=== PATIENT | male | born 1960 | race Caucasian/White ===

== ENCOUNTER → 2022-08-27 | Outpatient (CLI) | payer BC ==
[~2022-08-27] MED LIST: PRIL20TA2 PO; TYLE325T5 PO
== END ==
LOC: M LABSMTC 09:21
PROVIDERS: ATTEND Anesthesiology
DX: Z20.828 Contact with and (suspected) exposure to other viral communicable diseases (principal); Z11.59 Encounter for screening for other viral diseases

== ENCOUNTER 2022-08-30 06:44 | Day surgery (SDC) | payer BC ==
[~2022-08-30] VITALS: Ht 180.3 cm; Wt 57.2 kg
[~2022-08-30 06:44] MED LIST changes: +NS 1,000 ML IV ONE
[2022-08-30] MEDS ORDERED: propofoL 200 MG/20 ML VIAL As Ordered ONE (07:27)
[2022-08-30] MEDS ORDERED: LIDOCAINE 2% 100MG/5ML SDV (FOR ANES.) As Ordered ONE (07:27)
[2022-08-30] MEDS ORDERED: fentaNYL 100 MCG/2 ML INJECTION As Ordered ONE (07:28)
[2022-08-30] MEDS ORDERED: ePHEDrine SULFATE 25 MG/5 ML(5MG/ML) SYRINGE As Ordered ONE (08:22)
[2022-08-30 09:08] VITALS: BP 100/57
== END 2022-08-30 09:12 | disposition home or self-care (01) ==
LOC: M OPP 06:44
PROVIDERS: ATTEND Internal Medicine Gastroenterology
DX: Z12.11 Encounter for screening for malignant neoplasm of colon (principal); K64.0 First degree hemorrhoids; K21.00 Gastro-esophageal reflux disease with esophagitis, without bleeding; J44.9 Chronic obstructive pulmonary disease, unspecified; F17.200 Nicotine dependence, unspecified, uncomplicated; Z86.79 Personal history of other diseases of the circulatory system; Z79.899 Other long term (current) drug therapy
CPT/HCPCS: 43239; 45378; 88305; J3010

== ENCOUNTER 2023-04-17 21:59 | Inpatient (IN) | payer BC ==
[~2023-04-17] VITALS: Ht 180.3 cm; Wt 56.8 kg
[~2023-04-17 21:59] MED LIST changes: -NS 1,000 ML IV ONE
[2023-04-17 23:01] LABS: HEMOGLOBIN 15.9 g/dl (13.5-17.5); MEAN CORPUSCULAR HEMOGLOBIN 32.5 pg (27.0-33.0); MEAN CORPUSCULAR HGB CONC 33.8 g/dl (32.0-36.5); MEAN CORPUSCULAR VOLUME 96.1 fl (80.0-96.0); PLATELET COUNT, AUTOMATED 423 10^3/uL (150-450); RED BLOOD COUNT 4.89 10^6/uL (4.30-6.10); WHITE BLOOD COUNT 13.3 10^3/uL (4.0-10.0)
[2023-04-17 23:25] LABS: ALBUMIN 4.4 G/DL (3.2-5.2); ALKALINE PHOSPHATASE 103 U/L (46-116); ALT/SGPT 23 U/L (7.0-40); AST/SGOT 39 U/L (<34); BILIRUBIN,DIRECT 0.2 MG/DL (<0.4); BILIRUBIN,TOTAL 0.7 MG/DL (0.3-1.2); BLOOD UREA NITROGEN 19 MG/DL (9-23); CALCIUM LEVEL 9.6 MG/DL (8.3-10.6); CARBON DIOXIDE LEVEL 27 MMOL/L (20-31); CHLORIDE LEVEL 104 MMOL/L (98-107); CREATININE FOR GFR 0.65 MG/DL (0.70-1.30); GLOMERULAR FILTRATION RATE > 60.0 (>49); GLUCOSE, FASTING 111 MG/DL (74-106); LIPASE 36 U/L (12-53); POTASSIUM SERUM 4.9 MMOL/L (3.5-5.1); SODIUM LEVEL 139 MMOL/L (136-145); TOTAL PROTEIN 7.3 G/DL (5.7-8.2)
[2023-04-17] MEDS ORDERED: ONDANSETRON 4MG 2ML VIAL IV ONE (23:25)
[2023-04-17 23:31] LABS: ATYPICAL LYMPH 1 % (0-5); EOSINOPHILS 1 % (0-3); LYMPHOCYTES 13 % (16-44); MONOCYTES 4 % (0-5); NEUTROPHILS 81 % (28-66); PLATELET ESTIMATE INCREASED (NORMAL)
[2023-04-17] MEDS ORDERED: ISOVUE-370 76% 100ML VIAL As Ordered ONE (23:31)
[2023-04-17] MEDS: MORPHINE 4 MG/ML 1ML VIAL IV PRN (23:57)
[2023-04-18] MEDS: GASTROGRAFIN SOLUTION 30ML PO SCH ×2 (00:08→00:29)
[2023-04-18] MEDS: MORPHINE 4 MG/ML 1ML VIAL IV PRN ×3 (00:28→20:34)
[2023-04-18] MEDS ORDERED: ONDANSETRON 4MG 2ML VIAL IV PRN ×2 (04:30→16:30)
[2023-04-18] MEDS ORDERED: CYCL5TAB PO (04:37)
[2023-04-18] MEDS ORDERED: FLON1SPR (04:37)
[2023-04-18] MEDS ORDERED: NAPR500T6 PO (04:37)
[2023-04-18] MEDS ORDERED: FLUTICASONE PROP 0.05% NASAL SPRAY 16 GM (FLONASE) PRN (04:40)
[2023-04-18] MEDS ORDERED: HOME MED LIST COMPLETE! XX SCH (04:40)
[2023-04-18] MEDS ORDERED: IPRATROPIUM 0.5MG/ALBUTEROL 2.5MG INH SOL UD 3ML (DUONEB) NEB PRN (04:50)
[2023-04-18 05:31] LABS: BASO # 0.1 10^3/uL (0.0-0.2); BASO % 0.4 % (0.0-1.0); EOS % 0.1 % (0.0-3.0); HEMATOCRIT 45.9 % (42.0-52.0); HEMOGLOBIN 15.4 g/dl (13.5-17.5); LYMPH # 1.4 10^3/uL (1.5-5.0); LYMPH % 10.2 % (24.0-44.0); MEAN CORPUSCULAR HEMOGLOBIN 32.6 pg (27.0-33.0); MEAN CORPUSCULAR HGB CONC 33.6 g/dl (32.0-36.5); MONO # 0.7 10^3/uL (0.0-0.8); MONO % 5.5 % (2.0-8.0); NEUTROPHILS # 11.2 10^3/uL (1.5-8.5); NEUTROPHILS % 83.6 % (36.0-66.0); PLATELET COUNT, AUTOMATED 425 10^3/uL (150-450); RED BLOOD COUNT 4.73 10^6/uL (4.30-6.10); WHITE BLOOD COUNT 13.4 10^3/uL (4.0-10.0)
[2023-04-18 06:04] LABS: ALBUMIN 4.4 G/DL (3.2-5.2); ALKALINE PHOSPHATASE 113 U/L (46-116); ALT/SGPT 22 U/L (7.0-40); AST/SGOT 19 U/L (<34); BILIRUBIN,TOTAL 0.8 MG/DL (0.3-1.2); BLOOD UREA NITROGEN 17 MG/DL (9-23); CALCIUM LEVEL 9.7 MG/DL (8.3-10.6); CARBON DIOXIDE LEVEL 28 MMOL/L (20-31); CHLORIDE LEVEL 104 MMOL/L (98-107); CREATININE FOR GFR 0.63 MG/DL (0.70-1.30); GLOMERULAR FILTRATION RATE > 60.0 (>49); GLUCOSE, FASTING 122 MG/DL (74-106); POTASSIUM SERUM 4.1 MMOL/L (3.5-5.1); SODIUM LEVEL 140 MMOL/L (136-145); TOTAL PROTEIN 7.3 G/DL (5.7-8.2)
[2023-04-18 06:11] LABS: PROCALCITONIN <0.04 ng/ml
[2023-04-18] MEDS: PANTOPRAZOLE 40MG VIAL IV SCH (06:12)
[2023-04-18] MEDS: cefTRIAXone SOD 1 GM in D5W MINI-BAG PLUS 50 ML IV SCH (06:12)
[2023-04-18] MEDS: MORPHINE 2 MG/ML 1ML VIAL IV PRN ×3 (06:13→13:36)
[2023-04-18] MEDS: D5W/0.9% SODIUM CHLORIDE 1,000 ML IV SCH ×2 (06:18→15:48)
[2023-04-18] MEDS: DOXYCYCLINE HYCLATE 100 MG in D5W MINI-BAG PLUS 100 ML IV SCH ×2 (06:22→18:48)
[2023-04-18] MEDS ORDERED: MORPHINE 2 MG/ML 1ML VIAL IV PRN (10:40)
[2023-04-18] MEDS ORDERED: MORPHINE 4 MG/ML 1ML VIAL IV PRN (10:46)
[2023-04-18] MEDS ORDERED: MORPHINE 2 MG/ML 1ML VIAL IV ONE (12:00)
[2023-04-18 14:00] VITALS: BP 130/73; TEMP 97.7; O2SAT 97
[2023-04-18 14:48] VITALS: O2SAT 94
[2023-04-18] MEDS: LIDOCAINE 5% (LIDODERM) PATCH TD PRN (15:49)
[2023-04-18] MEDS: ONDANSETRON 4MG 2ML VIAL IV PRN (15:51)
[2023-04-18 20:00] VITALS: O2SAT 94
[2023-04-18 21:39] VITALS: BP 116/66; TEMP 97.9; O2SAT 94
[2023-04-18] MEDS ORDERED: KETOROLAC 30 MG/ML 1ML VIAL IV ONE (21:40)
[2023-04-19] MEDS: D5W/0.9% SODIUM CHLORIDE 1,000 ML IV SCH ×2 (02:20→15:40)
[2023-04-19] MEDS: MORPHINE 4 MG/ML 1ML VIAL IV PRN ×5 (02:29→22:47)
[2023-04-19 04:00] VITALS: O2SAT 94
[2023-04-19] MEDS: cefTRIAXone SOD 1 GM in D5W MINI-BAG PLUS 50 ML IV SCH (04:57)
[2023-04-19] MEDS: CHLORASEPTIC SPRAY MT PRN ×2 (05:14→18:33)
[2023-04-19] MEDS: DOXYCYCLINE HYCLATE 100 MG in D5W MINI-BAG PLUS 100 ML IV SCH ×2 (05:48→18:33)
[2023-04-19 06:00] VITALS: BP 105/67; TEMP 98.1; O2SAT 94
[2023-04-19 06:49] LABS: BLOOD UREA NITROGEN 18 MG/DL (9-23); CALCIUM LEVEL 9.1 MG/DL (8.3-10.6); CARBON DIOXIDE LEVEL 34 MMOL/L (20-31); CHLORIDE LEVEL 105 MMOL/L (98-107); CREATININE FOR GFR 0.76 MG/DL (0.70-1.30); GLOMERULAR FILTRATION RATE > 60.0 (>49); GLUCOSE, FASTING 96 MG/DL (74-106); MAGNESIUM LEVEL 1.8 MG/DL (1.8-2.4); POTASSIUM SERUM 3.7 MMOL/L (3.5-5.1); SODIUM LEVEL 145 MMOL/L (136-145)
[2023-04-19] MEDS ORDERED: ISOVUE-370 76% 100ML VIAL As Ordered ONE (07:40)
[2023-04-19] MEDS: PANTOPRAZOLE 40MG VIAL IV SCH (07:54)
[2023-04-19 14:00] VITALS: BP 105/66; TEMP 98.1; O2SAT 95
[2023-04-19 20:00] VITALS: BP 106/60; TEMP 98.2; O2SAT 91
[2023-04-20] MEDS: LIDOCAINE 5% (LIDODERM) PATCH TD PRN (00:06)
[2023-04-20 01:47] VITALS: O2SAT 93
[2023-04-20] MEDS: D5W/0.9% SODIUM CHLORIDE 1,000 ML IV SCH ×3 (02:33→20:15)
[2023-04-20] MEDS: cefTRIAXone SOD 1 GM in D5W MINI-BAG PLUS 50 ML IV SCH (04:23)
[2023-04-20 04:33] VITALS: BP 124/67; TEMP 98.1; O2SAT 92
[2023-04-20] MEDS: DOXYCYCLINE HYCLATE 100 MG in D5W MINI-BAG PLUS 100 ML IV SCH ×2 (05:40→18:04)
[2023-04-20] MEDS: MORPHINE 4 MG/ML 1ML VIAL IV PRN ×2 (05:41→22:18)
[2023-04-20 06:15] LABS: HEMATOCRIT 40.1 % (42.0-52.0); HEMOGLOBIN 13.2 g/dl (13.5-17.5); MEAN CORPUSCULAR HEMOGLOBIN 33.1 pg (27.0-33.0); MEAN CORPUSCULAR HGB CONC 32.9 g/dl (32.0-36.5); MEAN CORPUSCULAR VOLUME 100.5 fl (80.0-96.0); PLATELET COUNT, AUTOMATED 372 10^3/uL (150-450); RED BLOOD COUNT 3.99 10^6/uL (4.30-6.10); WHITE BLOOD COUNT 13.9 10^3/uL (4.0-10.0)
[2023-04-20 06:45] LABS: BLOOD UREA NITROGEN 16 MG/DL (9-23); CARBON DIOXIDE LEVEL 32 MMOL/L (20-31); CHLORIDE LEVEL 107 MMOL/L (98-107); CREATININE FOR GFR 0.66 MG/DL (0.70-1.30); GLOMERULAR FILTRATION RATE > 60.0 (>49); GLUCOSE, FASTING 98 MG/DL (74-106); MAGNESIUM LEVEL 1.7 MG/DL (1.8-2.4); POTASSIUM SERUM 3.9 MMOL/L (3.5-5.1); SODIUM LEVEL 147 MMOL/L (136-145)
[2023-04-20] MEDS: PANTOPRAZOLE 40MG VIAL IV SCH ×2 (07:56→20:15)
[2023-04-20] MEDS: MAG SULF 1GM/100ML (MAG RUN) 1 GM in IV 1 EA IV SCH ×2 (07:56→09:13)
[2023-04-20] MEDS: MORPHINE 2 MG/ML 1ML VIAL IV PRN ×2 (09:13→18:04)
[2023-04-20] MEDS: TIOTROPIUM INHALER/CAPSULE (SPIRIVA) INH SCH (11:29)
[2023-04-20] MEDS: BUDESONIDE 180MCG INHALER (PULMICORT FLEXHALER) INH SCH ×2 (11:29→23:19)
[2023-04-20] MEDS: CHLORASEPTIC SPRAY MT PRN (12:14)
[2023-04-20 14:00] VITALS: BP 125/67; TEMP 97.7; O2SAT 90
[2023-04-20 15:08] LABS: BODY FLUID CULTURE Not indicated. (.); LEGIONELLA ANTIGEN URINE Negative (Negative); ORGANISM ID Not indicated. (.); SPECIMEN SOURCE Urine (.); URINE STREP PNEUMONIAE ANTIGEN Negative (Negative)
[2023-04-20 20:00] VITALS: BP 110/63; TEMP 97.7; O2SAT 95
[2023-04-21] MEDS: MORPHINE 2 MG/ML 1ML VIAL IV PRN (03:17)
[2023-04-21] MEDS: cefTRIAXone SOD 1 GM in D5W MINI-BAG PLUS 50 ML IV SCH (04:00)
[2023-04-21] MEDS: DOXYCYCLINE HYCLATE 100 MG in D5W MINI-BAG PLUS 100 ML IV SCH ×2 (05:03→17:55)
[2023-04-21 05:37] VITALS: BP 113/70; TEMP 98.6; O2SAT 96
[2023-04-21 06:00] LABS: HEMATOCRIT 36.5 % (42.0-52.0); HEMOGLOBIN 12.3 g/dl (13.5-17.5); MEAN CORPUSCULAR HEMOGLOBIN 33.4 pg (27.0-33.0); MEAN CORPUSCULAR HGB CONC 33.7 g/dl (32.0-36.5); MEAN CORPUSCULAR VOLUME 99.2 fl (80.0-96.0); PLATELET COUNT, AUTOMATED 332 10^3/uL (150-450); RED BLOOD COUNT 3.68 10^6/uL (4.30-6.10); WHITE BLOOD COUNT 15.7 10^3/uL (4.0-10.0)
[2023-04-21] MEDS: D5W/0.9% SODIUM CHLORIDE 1,000 ML IV SCH ×2 (06:26→16:27)
[2023-04-21 06:30] LABS: BLOOD UREA NITROGEN 16 MG/DL (9-23); CALCIUM LEVEL 8.7 MG/DL (8.3-10.6); CARBON DIOXIDE LEVEL 30 MMOL/L (20-31); CHLORIDE LEVEL 108 MMOL/L (98-107); CREATININE FOR GFR 0.68 MG/DL (0.70-1.30); GLOMERULAR FILTRATION RATE > 60.0 (>49); GLUCOSE, FASTING 100 MG/DL (74-106); MAGNESIUM LEVEL 1.9 MG/DL (1.8-2.4); POTASSIUM SERUM 3.5 MMOL/L (3.5-5.1); SODIUM LEVEL 147 MMOL/L (136-145)
[2023-04-21] MEDS: BUDESONIDE 180MCG INHALER (PULMICORT FLEXHALER) INH SCH ×2 (07:54→20:12)
[2023-04-21] MEDS: TIOTROPIUM INHALER/CAPSULE (SPIRIVA) INH SCH (07:54)
[2023-04-21 08:00] VITALS: O2SAT 97
[2023-04-21] MEDS: PANTOPRAZOLE 40MG VIAL IV SCH ×2 (08:19→20:01)
[2023-04-21] MEDS: ENOXAPARIN 30MG/0.3ML SYRINGE (J1650 PER 10MG) SC SCH (13:12)
[2023-04-21 14:00] VITALS: BP 114/70; TEMP 97.7; O2SAT 98
[2023-04-21] MEDS: MORPHINE 4 MG/ML 1ML VIAL IV PRN (20:05)
[2023-04-21 20:40] VITALS: BP 138/78; TEMP 97; O2SAT 94
[2023-04-21] MEDS ORDERED: RAMELTEON 8 MG TAB (ROZEREM) PO ONE (22:25)
[2023-04-21] MEDS ORDERED: HYDROMORPHONE HCL 0.5 MG/ 0.5 ML SYRINGE IV ONE (22:25)
[2023-04-21] MEDS: ONDANSETRON 4MG 2ML VIAL IV PRN (22:41)
[2023-04-22] MEDS: MORPHINE 2 MG/ML 1ML VIAL IV PRN (00:06)
[2023-04-22] MEDS: D5W/0.9% SODIUM CHLORIDE 1,000 ML IV SCH ×3 (00:09→18:06)
[2023-04-22 03:25] VITALS: BP 95/56; TEMP 98.1; O2SAT 97
[2023-04-22] MEDS: cefTRIAXone SOD 1 GM in D5W MINI-BAG PLUS 50 ML IV SCH (05:00)
[2023-04-22 05:50] LABS: BLOOD UREA NITROGEN 12 MG/DL (9-23); CALCIUM LEVEL 8.2 MG/DL (8.3-10.6); CARBON DIOXIDE LEVEL 28 MMOL/L (20-31); CHLORIDE LEVEL 111 MMOL/L (98-107); CREATININE FOR GFR 0.69 MG/DL (0.70-1.30); GLOMERULAR FILTRATION RATE > 60.0 (>49); GLUCOSE, FASTING 95 MG/DL (74-106); MAGNESIUM LEVEL 1.6 MG/DL (1.8-2.4); POTASSIUM SERUM 3.5 MMOL/L (3.5-5.1); SODIUM LEVEL 144 MMOL/L (136-145)
[2023-04-22 06:00] VITALS: BP 115/62; TEMP 98.1; O2SAT 95
[2023-04-22] MEDS ORDERED: KETOROLAC 30 MG/ML 1ML VIAL IV ONE (06:00)
[2023-04-22] MEDS: DOXYCYCLINE HYCLATE 100 MG in D5W MINI-BAG PLUS 100 ML IV SCH ×2 (06:29→18:06)
[2023-04-22 08:00] VITALS: O2SAT 94
[2023-04-22] MEDS: TIOTROPIUM INHALER/CAPSULE (SPIRIVA) INH SCH (08:16)
[2023-04-22] MEDS: BUDESONIDE 180MCG INHALER (PULMICORT FLEXHALER) INH SCH ×2 (08:16→20:18)
[2023-04-22] MEDS: ENOXAPARIN 30MG/0.3ML SYRINGE (J1650 PER 10MG) SC SCH (09:44)
[2023-04-22] MEDS: PANTOPRAZOLE 40MG VIAL IV SCH ×2 (09:44→20:32)
[2023-04-22 10:30] LABS: BASO # 0.1 10^3/uL (0.0-0.2); BASO % 0.7 % (0.0-1.0); EOS # 0.2 10^3/uL (0.0-0.5); EOS % 2.2 % (0.0-3.0); HEMATOCRIT 36.7 % (42.0-52.0); HEMOGLOBIN 12.1 g/dl (13.5-17.5); LYMPH # 2.1 10^3/uL (1.5-5.0); LYMPH % 23.6 % (24.0-44.0); MEAN CORPUSCULAR HEMOGLOBIN 32.5 pg (27.0-33.0); MEAN CORPUSCULAR VOLUME 98.7 fl (80.0-96.0); MONO # 1.2 10^3/uL (0.0-0.8); MONO % 13.3 % (2.0-8.0); NEUTROPHILS # 5.4 10^3/uL (1.5-8.5); PLATELET COUNT, AUTOMATED 320 10^3/uL (150-450); RED BLOOD COUNT 3.72 10^6/uL (4.30-6.10)
[2023-04-22 11:03] LABS: BLOOD UREA NITROGEN 13 MG/DL (9-23); CALCIUM LEVEL 8.2 MG/DL (8.3-10.6); CARBON DIOXIDE LEVEL 29 MMOL/L (20-31); CHLORIDE LEVEL 111 MMOL/L (98-107); CREATININE FOR GFR 0.71 MG/DL (0.70-1.30); GLOMERULAR FILTRATION RATE > 60.0 (>49); GLUCOSE, FASTING 93 MG/DL (74-106); MAGNESIUM LEVEL 1.6 MG/DL (1.8-2.4); POTASSIUM SERUM 3.7 MMOL/L (3.5-5.1); SODIUM LEVEL 144 MMOL/L (136-145)
[2023-04-22 14:26] VITALS: BP 104/68; TEMP 97.9; O2SAT 96
[2023-04-22 21:15] VITALS: BP 124/68; TEMP 97.7; O2SAT 95
[2023-04-23 05:34] LABS: BASO # 0.1 10^3/uL (0.0-0.2); BASO % 0.9 % (0.0-1.0); EOS # 0.3 10^3/uL (0.0-0.5); EOS % 3.3 % (0.0-3.0); HEMATOCRIT 36.3 % (42.0-52.0); HEMOGLOBIN 12.2 g/dl (13.5-17.5); LYMPH # 2.2 10^3/uL (1.5-5.0); LYMPH % 21.5 % (24.0-44.0); MEAN CORPUSCULAR HEMOGLOBIN 32.6 pg (27.0-33.0); MEAN CORPUSCULAR HGB CONC 33.6 g/dl (32.0-36.5); MEAN CORPUSCULAR VOLUME 97.1 fl (80.0-96.0); MONO # 1.4 10^3/uL (0.0-0.8); MONO % 13.3 % (2.0-8.0); NEUTROPHILS # 6.3 10^3/uL (1.5-8.5); NEUTROPHILS % 60.8 % (36.0-66.0); PLATELET COUNT, AUTOMATED 334 10^3/uL (150-450); RED BLOOD COUNT 3.74 10^6/uL (4.30-6.10); WHITE BLOOD COUNT 10.4 10^3/uL (4.0-10.0)
[2023-04-23 06:00] VITALS: BP 110/66; TEMP 97.9; O2SAT 94
[2023-04-23 06:00] LABS: BLOOD UREA NITROGEN 10 MG/DL (9-23); CARBON DIOXIDE LEVEL 26 MMOL/L (20-31); CHLORIDE LEVEL 110 MMOL/L (98-107); CREATININE FOR GFR 0.65 MG/DL (0.70-1.30); GLOMERULAR FILTRATION RATE > 60.0 (>49); GLUCOSE, FASTING 83 MG/DL (74-106); POTASSIUM SERUM 3.4 MMOL/L (3.5-5.1); SODIUM LEVEL 145 MMOL/L (136-145)
[2023-04-23] MEDS: MAG SULF 1GM/100ML (MAG RUN) 1 GM in IV 1 EA IV SCH ×4 (06:54→10:49)
[2023-04-23 06:55] LABS: MAGNESIUM LEVEL 1.5 MG/DL (1.8-2.4)
[2023-04-23] MEDS: PANTOPRAZOLE 40MG VIAL IV SCH ×2 (08:03→19:58)
[2023-04-23] MEDS: ENOXAPARIN 30MG/0.3ML SYRINGE (J1650 PER 10MG) SC SCH (08:06)
[2023-04-23] MEDS: BUDESONIDE 180MCG INHALER (PULMICORT FLEXHALER) INH SCH ×2 (08:37→20:32)
[2023-04-23] MEDS: TIOTROPIUM INHALER/CAPSULE (SPIRIVA) INH SCH (08:37)
[2023-04-23] MEDS: KCL 10MEQ/100ML SWI (KRUN) 10 MEQ in IV 1 EA IV SCH ×4 (12:04→15:22)
[2023-04-23] MEDS: D5W/0.9% SODIUM CHLORIDE 1,000 ML IV SCH ×4 (12:05→19:58)
[2023-04-23 14:00] VITALS: BP 110/65; TEMP 97.7; O2SAT 96
[2023-04-23] MEDS: cefTRIAXone SOD 2 GM in D5W MINI-BAG PLUS 50 ML IV SCH (16:26)
[2023-04-23] MEDS ORDERED: NICOTINE 21MG/24HR 1 EA TRANSDERMAL TD PRN (16:35)
[2023-04-23 19:47] LABS: MAGNESIUM LEVEL 2.1 MG/DL (1.8-2.4); POTASSIUM SERUM 3.6 MMOL/L (3.5-5.1)
[2023-04-23 19:56] VITALS: BP 145/79; TEMP 97.7; O2SAT 96
[2023-04-23] MEDS: MORPHINE 4 MG/ML 1ML VIAL IV PRN (19:59)
[2023-04-24] VITALS (9 sets, daily range): BP systolic 89–119; BP diastolic 50–71; TEMP 97.1–98.4; O2SAT 92–97
[2023-04-24] MEDS: D5W/0.9% SODIUM CHLORIDE 1,000 ML IV SCH ×2 (04:07→17:11)
[2023-04-24 06:39] LABS: BASO # 0.1 10^3/uL (0.0-0.2); BASO % 0.9 % (0.0-1.0); EOS # 0.3 10^3/uL (0.0-0.5); EOS % 3.7 % (0.0-3.0); HEMATOCRIT 36.8 % (42.0-52.0); HEMOGLOBIN 12.5 g/dl (13.5-17.5); LYMPH # 2.3 10^3/uL (1.5-5.0); LYMPH % 26.3 % (24.0-44.0); MEAN CORPUSCULAR HEMOGLOBIN 32.7 pg (27.0-33.0); MEAN CORPUSCULAR VOLUME 96.3 fl (80.0-96.0); MONO # 1.2 10^3/uL (0.0-0.8); MONO % 13.6 % (2.0-8.0); NEUTROPHILS # 4.8 10^3/uL (1.5-8.5); NEUTROPHILS % 55.3 % (36.0-66.0); PLATELET COUNT, AUTOMATED 359 10^3/uL (150-450); RED BLOOD COUNT 3.82 10^6/uL (4.30-6.10); WHITE BLOOD COUNT 8.7 10^3/uL (4.0-10.0)
[2023-04-24 06:46] LABS: BLOOD UREA NITROGEN 7 MG/DL (9-23); CALCIUM LEVEL 8.1 MG/DL (8.3-10.6); CARBON DIOXIDE LEVEL 26 MMOL/L (20-31); CHLORIDE LEVEL 109 MMOL/L (98-107); CREATININE FOR GFR 0.65 MG/DL (0.70-1.30); GLOMERULAR FILTRATION RATE > 60.0 (>49); GLUCOSE, FASTING 96 MG/DL (74-106); POTASSIUM SERUM 3.5 MMOL/L (3.5-5.1); SODIUM LEVEL 143 MMOL/L (136-145)
[2023-04-24] MEDS ORDERED: ACETAMINOPHEN 1000MG 100ML IV BAG As Ordered ONE (08:22)
[2023-04-24] MEDS ORDERED: SUGAMMADEX SODIUM 500 MG/5 ML VIAL (BRIDION) As Ordered ONE (08:22)
[2023-04-24] MEDS ORDERED: GLYCOPYRROLATE INJ 0.2 MG/ML 2 ML VIAL As Ordered ONE (08:22)
[2023-04-24] MEDS ORDERED: MIDAZOLAM INJ 2MG/2ML VIAL As Ordered ONE (08:22)
[2023-04-24] MEDS ORDERED: SUCCINYLCHOLINE 100MG/5ML SYRINGE As Ordered ONE (08:22)
[2023-04-24] MEDS ORDERED: ROCURONIUM BROMIDE 50MG/5ML VIAL As Ordered ONE (08:22)
[2023-04-24] MEDS ORDERED: ePHEDrine SULFATE 25 MG/5 ML(5MG/ML) SYRINGE As Ordered ONE (08:22)
[2023-04-24] MEDS ORDERED: ONDANSETRON 4MG 2ML VIAL As Ordered ONE (08:22)
[2023-04-24] MEDS ORDERED: fentaNYL 250 MCG/5 ML INJECTION As Ordered ONE (08:22)
[2023-04-24] MEDS ORDERED: KETOROLAC 60MG 2ML VIAL As Ordered ONE (08:22)
[2023-04-24] MEDS ORDERED: HYDROmorphone HCL 2MG/ML 1ML VIAL As Ordered ONE (08:25)
[2023-04-24] MEDS ORDERED: ONDANSETRON 4MG 2ML VIAL IV PRN (10:30)
[2023-04-24] MEDS ORDERED: LR 1,000 ML IV SCH (10:30)
[2023-04-24] MEDS ORDERED: oxyCODONE 5MG TAB PO PRN (10:30)
[2023-04-24] MEDS ORDERED: fentaNYL 100 MCG/2 ML INJECTION IV PRN (10:30)
[2023-04-24] MEDS ORDERED: LIDOCAINE 2% 100MG/5ML SDV (FOR ANES.) As Ordered ONE (10:47)
[2023-04-24] MEDS ORDERED: propofoL 200 MG/20 ML VIAL As Ordered ONE (10:47)
[2023-04-24] MEDS: PANTOPRAZOLE 40MG VIAL IV SCH ×2 (11:34→20:26)
[2023-04-24] MEDS: BUDESONIDE 180MCG INHALER (PULMICORT FLEXHALER) INH SCH ×2 (11:42→21:00)
[2023-04-24] MEDS: TIOTROPIUM INHALER/CAPSULE (SPIRIVA) INH SCH (11:42)
[2023-04-24] MEDS: cefTRIAXone SOD 2 GM in D5W MINI-BAG PLUS 50 ML IV SCH (16:12)
[2023-04-24] MEDS: KETOROLAC 30 MG/ML 1ML VIAL IV SCH ×2 (16:12→20:26)
[2023-04-24] MEDS ORDERED: ACETAMINOPHEN TAB 650MG DOSE (2X325MG) PO PRN (18:05)
[2023-04-25 00:30] VITALS: BP 99/60; TEMP 98.1; O2SAT 97
[2023-04-25] MEDS: D5W/0.9% SODIUM CHLORIDE 1,000 ML IV SCH ×4 (00:36→23:13)
[2023-04-25] MEDS: KETOROLAC 30 MG/ML 1ML VIAL IV SCH (03:27)
[2023-04-25 04:30] VITALS: BP 101/61; TEMP 97.7; O2SAT 93
[2023-04-25 05:53] LABS: BASO # 0.1 10^3/uL (0.0-0.2); BASO % 0.4 % (0.0-1.0); EOS # 0.2 10^3/uL (0.0-0.5); EOS % 1.3 % (0.0-3.0); HEMOGLOBIN 12.6 g/dl (13.5-17.5); LYMPH # 2.7 10^3/uL (1.5-5.0); LYMPH % 23.7 % (24.0-44.0); MEAN CORPUSCULAR HEMOGLOBIN 33.1 pg (27.0-33.0); MEAN CORPUSCULAR HGB CONC 34.1 g/dl (32.0-36.5); MEAN CORPUSCULAR VOLUME 97.1 fl (80.0-96.0); MONO # 1.3 10^3/uL (0.0-0.8); NEUTROPHILS % 62.4 % (36.0-66.0); PLATELET COUNT, AUTOMATED 366 10^3/uL (150-450); RED BLOOD COUNT 3.81 10^6/uL (4.30-6.10); WHITE BLOOD COUNT 11.2 10^3/uL (4.0-10.0)
[2023-04-25 06:22] LABS: BLOOD UREA NITROGEN 10 MG/DL (9-23); CALCIUM LEVEL 8.6 MG/DL (8.3-10.6); CARBON DIOXIDE LEVEL 28 MMOL/L (20-31); CHLORIDE LEVEL 105 MMOL/L (98-107); CREATININE FOR GFR 0.72 MG/DL (0.70-1.30); GLOMERULAR FILTRATION RATE > 60.0 (>49); GLUCOSE, FASTING 88 MG/DL (74-106); POTASSIUM SERUM 3.6 MMOL/L (3.5-5.1); SODIUM LEVEL 141 MMOL/L (136-145)
[2023-04-25] MEDS: BUDESONIDE 180MCG INHALER (PULMICORT FLEXHALER) INH SCH ×2 (08:04→20:21)
[2023-04-25] MEDS: TIOTROPIUM INHALER/CAPSULE (SPIRIVA) INH SCH (08:04)
[2023-04-25 08:30] VITALS: BP 101/61; TEMP 97.9; O2SAT 92
[2023-04-25] MEDS: MORPHINE 2 MG/ML 1ML VIAL IV PRN (10:28)
[2023-04-25] MEDS: PANTOPRAZOLE 40MG VIAL IV SCH ×2 (10:28→20:42)
[2023-04-25] MEDS: ENOXAPARIN 30MG/0.3ML SYRINGE (J1650 PER 10MG) SC SCH (10:29)
[2023-04-25 12:30] VITALS: BP 103/64; TEMP 98.2; O2SAT 95
[2023-04-25 14:00] VITALS: BP 106/70; TEMP 98.1; O2SAT 96
[2023-04-25] MEDS ORDERED: PERCOCET 5MG/325MG TAB PO PRN (16:30)
[2023-04-25 21:30] VITALS: BP 103/64; TEMP 97.7; O2SAT 91
[2023-04-26 04:50] VITALS: BP 104/65; TEMP 97.7; O2SAT 94
[2023-04-26 06:25] LABS: BASO # 0.1 10^3/uL (0.0-0.2); BASO % 0.9 % (0.0-1.0); EOS # 0.3 10^3/uL (0.0-0.5); EOS % 3.1 % (0.0-3.0); HEMATOCRIT 35.7 % (42.0-52.0); HEMOGLOBIN 12.1 g/dl (13.5-17.5); LYMPH # 2.5 10^3/uL (1.5-5.0); LYMPH % 26.6 % (24.0-44.0); MEAN CORPUSCULAR HEMOGLOBIN 32.9 pg (27.0-33.0); MEAN CORPUSCULAR HGB CONC 33.9 g/dl (32.0-36.5); MONO # 1.2 10^3/uL (0.0-0.8); NEUTROPHILS # 5.3 10^3/uL (1.5-8.5); NEUTROPHILS % 56.1 % (36.0-66.0); PLATELET COUNT, AUTOMATED 360 10^3/uL (150-450); RED BLOOD COUNT 3.68 10^6/uL (4.30-6.10); WHITE BLOOD COUNT 9.4 10^3/uL (4.0-10.0)
[2023-04-26 06:53] VITALS: O2SAT 94
[2023-04-26 06:53] LABS: BLOOD UREA NITROGEN 8 MG/DL (9-23); CALCIUM LEVEL 8.2 MG/DL (8.3-10.6); CARBON DIOXIDE LEVEL 29 MMOL/L (20-31); CHLORIDE LEVEL 108 MMOL/L (98-107); CREATININE FOR GFR 0.65 MG/DL (0.70-1.30); GLOMERULAR FILTRATION RATE > 60.0 (>49); GLUCOSE, FASTING 88 MG/DL (74-106); POTASSIUM SERUM 3.6 MMOL/L (3.5-5.1); SODIUM LEVEL 144 MMOL/L (136-145)
[2023-04-26] MEDS: D5W/0.9% SODIUM CHLORIDE 1,000 ML IV SCH (07:56)
[2023-04-26] MEDS: BUDESONIDE 180MCG INHALER (PULMICORT FLEXHALER) INH SCH (08:02)
[2023-04-26] MEDS: TIOTROPIUM INHALER/CAPSULE (SPIRIVA) INH SCH (08:02)
[2023-04-26] MEDS: ENOXAPARIN 30MG/0.3ML SYRINGE (J1650 PER 10MG) SC SCH (10:30)
[2023-04-26] MEDS: PANTOPRAZOLE 40MG VIAL IV SCH (10:31)
[2023-04-26] MEDS ORDERED: PANT40TA29 PO (10:54)
[2023-04-26] MEDS ORDERED: ALBU8.5H INH (10:54)
[2023-04-26] MEDS ORDERED: ANOR1AER PO (10:54)
[2023-04-26] MEDS ORDERED: OXYC1TAB23 PO ×2 (10:54→12:21)
[2023-04-26] MEDS ORDERED: COLA100C5 PO (12:14)
== END 2023-04-26 14:13 | disposition home or self-care (01) | DRG 224 ==
LOC: M ED 21:59 → M ED INP 04-18 04:30 → ENRESERV 04-18 12:44 → M MSPAV 04-18 14:00
PROVIDERS: ADMIT Internal Medicine; ATTEND Internal Medicine
PROC: 0DN84ZZ Release Small Intestine, Percutaneous Endoscopic Approach (ICD-10-PCS; principal; 2023-04-18)
PROC: B246ZZZ Ultrasonography of Right and Left Heart (ICD-10-PCS; 2023-04-20)
DX: K56.51 Intestinal adhesions [bands], with partial obstruction (principal); J15.5 Pneumonia due to Escherichia coli; E46 Unspecified protein-calorie malnutrition; E87.1 Hypo-osmolality and hyponatremia; F17.210 Nicotine dependence, cigarettes, uncomplicated; I25.10 Atherosclerotic heart disease of native coronary artery without angina pectoris; J44.9 Chronic obstructive pulmonary disease, unspecified; K21.9 Gastro-esophageal reflux disease without esophagitis; K59.00 Constipation, unspecified; N20.0 Calculus of kidney; R00.1 Bradycardia, unspecified; R63.4 Abnormal weight loss; Z68.1 Body mass index [BMI] 19.9 or less, adult; Z79.899 Other long term (current) drug therapy; G43.909 Migraine, unspecified, not intractable, without status migrainosus; Z90.81 Acquired absence of spleen

== ENCOUNTER 2023-05-03 13:02 | Inpatient (IN) | payer BC ==
[~2023-05-03] VITALS: Ht 180.3 cm; Wt 57.0 kg
[~2023-05-03 13:02] MED LIST changes: +ALBU8.5H INH; +ANOR1AER PO; +COLA100C5 PO; +CYCL5TAB PO; +FLON1SPR; +NAPR500T6 PO; +OXYC1TAB23 PO; +PANT40TA29 PO
[2023-05-03] MEDS ORDERED: PULM90IN INH (13:15)
[2023-05-03 16:30] LABS: BASO # 0.1 10^3/uL (0.0-0.2); BASO % 0.8 % (0.0-1.0); EOS # 0.2 10^3/uL (0.0-0.5); EOS % 1.2 % (0.0-3.0); HEMATOCRIT 43.4 % (42.0-52.0); HEMOGLOBIN 14.9 g/dl (13.5-17.5); LYMPH # 2.2 10^3/uL (1.5-5.0); LYMPH % 15.1 % (24.0-44.0); MEAN CORPUSCULAR HEMOGLOBIN 33.3 pg (27.0-33.0); MEAN CORPUSCULAR HGB CONC 34.3 g/dl (32.0-36.5); MEAN CORPUSCULAR VOLUME 97.1 fl (80.0-96.0); MONO # 1.3 10^3/uL (0.0-0.8); NEUTROPHILS # 10.7 10^3/uL (1.5-8.5); NEUTROPHILS % 73.6 % (36.0-66.0); PLATELET COUNT, AUTOMATED 557 10^3/uL (150-450); RED BLOOD COUNT 4.47 10^6/uL (4.30-6.10); WHITE BLOOD COUNT 14.5 10^3/uL (4.0-10.0)
[2023-05-03 16:54] LABS: CARBON DIOXIDE LEVEL 27 MMOL/L (20-31); CHLORIDE LEVEL 102 MMOL/L (98-107); POTASSIUM SERUM 4.5 MMOL/L (3.5-5.1); SODIUM LEVEL 138 MMOL/L (136-145)
[2023-05-03 16:57] LABS: ALKALINE PHOSPHATASE 113 U/L (46-116); BLOOD UREA NITROGEN 12 MG/DL (9-23); CALCIUM LEVEL 9.9 MG/DL (8.3-10.6); GLUCOSE, FASTING 102 MG/DL (74-106); LIPASE 26 U/L (12-53)
[2023-05-03 17:15] LABS: ALT/SGPT 35 U/L (7.0-40); AST/SGOT 16 U/L (<34); BILIRUBIN,DIRECT 0.3 MG/DL (<0.4); BILIRUBIN,TOTAL 0.8 MG/DL (0.3-1.2); CREATININE FOR GFR 0.56 MG/DL (0.70-1.30); GLOMERULAR FILTRATION RATE > 60.0 (>49); TOTAL PROTEIN 6.8 G/DL (5.7-8.2)
[2023-05-03] MEDS ORDERED: NS 1,000 ML IV ONE (17:40)
[2023-05-03] MEDS ORDERED: ACETAMINOPHEN 1000MG 100ML IV BAG IV ONE (17:40)
[2023-05-03] MEDS ORDERED: ONDANSETRON 4MG 2ML VIAL IV ONE (17:40)
[2023-05-03 19:11] LABS: APPEARANCE, URINE CLEAR (CLEAR); BACTERIA, URINE AUTO NEGATIVE (NEGATIVE); BILIRUBIN, URINE AUTO NEGATIVE (NEGATIVE); BLOOD, URINE BLOOD 1+ (NEGATIVE); COLOR, URINE YELLOW (YELLOW); GLUCOSE, URINE (UA) AUTO NEGATIVE (NEGATIVE); KETONE, URINE AUTO NEGATIVE (NEGATIVE); LEUKOCYTE ESTERASE, URINE AUTO NEGATIVE (NEGATIVE); NITRITE, URINE AUTO NEGATIVE (NEGATIVE); PROTEIN, URINE AUTO NEGATIVE (NEGATIVE); RBC, URINE AUTO 3 /HPF (0-3); SPECIFIC GRAVITY URINE AUTO 1.012 (1.002-1.035); SQUAMOUS EPITHELIAL CELL UR AU 0 /HPF (0-6); UROBILINOGEN, URINE AUTO 0.2 mg/dL (0.0-2.0); WBC, URINE AUTO 0 /HPF (0-3)
[2023-05-03] MEDS ORDERED: ISOVUE-370 76% 100ML VIAL As Ordered ONE (19:42)
[2023-05-03] MEDS ORDERED: GASTROGRAFIN SOLUTION 30ML PO SCH (19:55)
[2023-05-03] MEDS: GASTROGRAFIN SOLUTION 30ML PO SCH ×2 (19:59→20:28)
[2023-05-03] MEDS ORDERED: PROMETHAZINE 25MG/ML 1ML VIAL IV ONE (22:25)
[2023-05-03] MEDS ORDERED: MORPHINE 4 MG/ML 1ML VIAL IV ONE (22:25)
[2023-05-03] MEDS ORDERED: ONDANSETRON 4MG 2ML VIAL IV PRN (23:55)
[2023-05-03] MEDS ORDERED: MORPHINE 2 MG/ML 1ML VIAL IV PRN (23:55)
[2023-05-04] MEDS: LR 1,000 ML IV SCH ×2 (00:05→12:54)
[2023-05-04 02:04] VITALS: BP 127/83; TEMP 97.3; O2SAT 100
[2023-05-04] MEDS ORDERED: PANT40TA29 PO (02:19)
[2023-05-04] MEDS ORDERED: DOCU100C16 PO (02:19)
[2023-05-04] MEDS ORDERED: OXYC1TAB23 PO (02:19)
[2023-05-04] MEDS ORDERED: ANOR1AER INH (02:19)
[2023-05-04] MEDS ORDERED: ALBU8.5H INH (02:19)
[2023-05-04] MEDS ORDERED: HOME MED LIST COMPLETE! XX SCH (02:20)
[2023-05-04] MEDS ORDERED: ALBUTEROL 90 MCG/ACT 8GM HFA INHALER INH PRN (02:45)
[2023-05-04 06:00] VITALS: BP 135/84; TEMP 98.2; O2SAT 96
[2023-05-04 06:09] LABS: HEMOGLOBIN 13.8 g/dl (13.5-17.5); MEAN CORPUSCULAR HEMOGLOBIN 32.6 pg (27.0-33.0); MEAN CORPUSCULAR HGB CONC 33.7 g/dl (32.0-36.5); MEAN CORPUSCULAR VOLUME 96.9 fl (80.0-96.0); PLATELET COUNT, AUTOMATED 554 10^3/uL (150-450); RED BLOOD COUNT 4.23 10^6/uL (4.30-6.10); WHITE BLOOD COUNT 14.2 10^3/uL (4.0-10.0)
[2023-05-04 06:46] LABS: BLOOD UREA NITROGEN 13 MG/DL (9-23); CALCIUM LEVEL 9.5 MG/DL (8.3-10.6); CARBON DIOXIDE LEVEL 28 MMOL/L (20-31); CHLORIDE LEVEL 102 MMOL/L (98-107); CREATININE FOR GFR 0.62 MG/DL (0.70-1.30); GLOMERULAR FILTRATION RATE > 60.0 (>49); GLUCOSE, FASTING 79 MG/DL (74-106); POTASSIUM SERUM 4.3 MMOL/L (3.5-5.1); SODIUM LEVEL 141 MMOL/L (136-145)
[2023-05-04] MEDS: ADVAIR HFA 115/21MCG INHALER INH SCH ×2 (08:30→21:10)
[2023-05-04] MEDS: PANTOPRAZOLE 40MG VIAL IV SCH (08:38)
[2023-05-04] MEDS: MORPHINE 4 MG/ML 1ML VIAL IV PRN (09:44)
[2023-05-04 12:00] VITALS: BP 104/62; TEMP 97.9; O2SAT 96
[2023-05-04] MEDS ORDERED: KETOROLAC 30 MG/ML 1ML VIAL IV PRN (12:05)
[2023-05-04] MEDS ORDERED: ACETAMINOPHEN 1000MG 100ML IV BAG IV ONE (12:05)
[2023-05-04 14:00] VITALS: BP 104/62; TEMP 97.9; O2SAT 96
[2023-05-04] MEDS: KETOROLAC 30 MG/ML 1ML VIAL IV SCH ×2 (14:02→20:13)
[2023-05-04 21:04] VITALS: BP 104/67; TEMP 98.1; O2SAT 98
[2023-05-05] MEDS: LR 1,000 ML IV SCH ×3 (01:35→19:47)
[2023-05-05] MEDS: KETOROLAC 30 MG/ML 1ML VIAL IV SCH ×4 (02:06→20:08)
[2023-05-05 06:27] VITALS: BP 103/67; TEMP 98.6; O2SAT 97
[2023-05-05] MEDS: ADVAIR HFA 115/21MCG INHALER INH SCH ×2 (08:00→20:02)
[2023-05-05] MEDS: PANTOPRAZOLE 40MG VIAL IV SCH (08:16)
[2023-05-05 08:23] LABS: BASO # 0.2 10^3/uL (0.0-0.2); BASO % 1.2 % (0.0-1.0); EOS # 0.3 10^3/uL (0.0-0.5); EOS % 1.9 % (0.0-3.0); HEMATOCRIT 42.3 % (42.0-52.0); HEMOGLOBIN 14.5 g/dl (13.5-17.5); LYMPH # 2.2 10^3/uL (1.5-5.0); LYMPH % 14.9 % (24.0-44.0); MEAN CORPUSCULAR HEMOGLOBIN 33.2 pg (27.0-33.0); MEAN CORPUSCULAR HGB CONC 34.3 g/dl (32.0-36.5); MEAN CORPUSCULAR VOLUME 96.8 fl (80.0-96.0); MONO # 1.4 10^3/uL (0.0-0.8); MONO % 9.7 % (2.0-8.0); NEUTROPHILS # 10.5 10^3/uL (1.5-8.5); NEUTROPHILS % 71.8 % (36.0-66.0); PLATELET COUNT, AUTOMATED 563 10^3/uL (150-450); RED BLOOD COUNT 4.37 10^6/uL (4.30-6.10); WHITE BLOOD COUNT 14.6 10^3/uL (4.0-10.0)
[2023-05-05 08:42] LABS: BLOOD UREA NITROGEN 22 MG/DL (9-23); CALCIUM LEVEL 9.7 MG/DL (8.3-10.6); CARBON DIOXIDE LEVEL 38 MMOL/L (20-31); CHLORIDE LEVEL 99 MMOL/L (98-107); CREATININE FOR GFR 0.75 MG/DL (0.70-1.30); GLOMERULAR FILTRATION RATE > 60.0 (>49); GLUCOSE, FASTING 84 MG/DL (74-106); POTASSIUM SERUM 4.1 MMOL/L (3.5-5.1); SODIUM LEVEL 141 MMOL/L (136-145)
[2023-05-05 08:59] LABS: INR 1.01; PROTHROMBIN TIME 13.5 SECONDS (12.5-14.5)
[2023-05-05 09:00] LABS: PARTIAL THROMBOPLASTIN TIME 32.4 SECONDS (24.8-34.2)
[2023-05-05 14:00] VITALS: BP 102/66; TEMP 97.9; O2SAT 98
[2023-05-05 20:48] VITALS: BP 104/66; TEMP 99; O2SAT 98
[2023-05-06] MEDS: KETOROLAC 30 MG/ML 1ML VIAL IV SCH ×4 (02:14→20:26)
[2023-05-06] MEDS: LR 1,000 ML IV SCH ×4 (02:14→23:01)
[2023-05-06 06:12] VITALS: BP 104/67; TEMP 98.2; O2SAT 98
[2023-05-06] MEDS: PANTOPRAZOLE 40MG VIAL IV SCH (08:13)
[2023-05-06] MEDS: ADVAIR HFA 115/21MCG INHALER INH SCH ×2 (08:26→20:13)
[2023-05-06 14:00] VITALS: BP 106/69; TEMP 97.5; O2SAT 100
[2023-05-06 21:24] VITALS: BP 113/73; TEMP 97.5; O2SAT 98
[2023-05-07] MEDS: KETOROLAC 30 MG/ML 1ML VIAL IV SCH ×4 (02:55→19:37)
[2023-05-07 05:47] VITALS: BP 112/68; TEMP 98.4; O2SAT 96
[2023-05-07] MEDS: LR 1,000 ML IV SCH (06:10)
[2023-05-07 07:52] LABS: BASO # 0.2 10^3/uL (0.0-0.2); BASO % 1.5 % (0.0-1.0); EOS # 0.5 10^3/uL (0.0-0.5); EOS % 4.4 % (0.0-3.0); HEMATOCRIT 38.5 % (42.0-52.0); HEMOGLOBIN 12.9 g/dl (13.5-17.5); LYMPH # 2.1 10^3/uL (1.5-5.0); MEAN CORPUSCULAR HEMOGLOBIN 32.7 pg (27.0-33.0); MEAN CORPUSCULAR HGB CONC 33.5 g/dl (32.0-36.5); MEAN CORPUSCULAR VOLUME 97.5 fl (80.0-96.0); MONO # 1.2 10^3/uL (0.0-0.8); MONO % 10.6 % (2.0-8.0); NEUTROPHILS # 7.5 10^3/uL (1.5-8.5); NEUTROPHILS % 65.2 % (36.0-66.0); PLATELET COUNT, AUTOMATED 498 10^3/uL (150-450); RED BLOOD COUNT 3.95 10^6/uL (4.30-6.10); WHITE BLOOD COUNT 11.4 10^3/uL (4.0-10.0)
[2023-05-07 08:20] LABS: ALBUMIN 3.5 G/DL (3.2-5.2); ALKALINE PHOSPHATASE 93 U/L (46-116); ALT/SGPT 17 U/L (7.0-40); AST/SGOT 16 U/L (<34); BILIRUBIN,TOTAL 0.8 MG/DL (0.3-1.2); BLOOD UREA NITROGEN 20 MG/DL (9-23); CALCIUM LEVEL 9.6 MG/DL (8.3-10.6); CARBON DIOXIDE LEVEL 35 MMOL/L (20-31); CHLORIDE LEVEL 103 MMOL/L (98-107); CREATININE FOR GFR 0.72 MG/DL (0.70-1.30); GLOMERULAR FILTRATION RATE > 60.0 (>49); GLUCOSE, FASTING 70 MG/DL (74-106); POTASSIUM SERUM 3.3 MMOL/L (3.5-5.1); SODIUM LEVEL 143 MMOL/L (136-145); TOTAL PROTEIN 6.2 G/DL (5.7-8.2)
[2023-05-07] MEDS: ADVAIR HFA 115/21MCG INHALER INH SCH ×2 (08:40→19:57)
[2023-05-07] MEDS: PANTOPRAZOLE 40MG VIAL IV SCH (08:44)
[2023-05-07] MEDS ORDERED: E-Z-PAQUE 96% w/w SUSP 176GM BTL As Ordered ONE (10:06)
[2023-05-07] MEDS ORDERED: LIDOCAINE 1% MDV 20ML VIAL As Ordered ONE (12:52)
[2023-05-07 14:00] VITALS: BP 114/67; TEMP 98.1; O2SAT 97
[2023-05-07] MEDS ORDERED: POTASSIUM CHLORIDE INJ 40 MEQ in LR 1,000 ML IV SCH (14:00)
[2023-05-07] MEDS ORDERED: FAT EMULSION IV 250 ML IV ONE (18:00)
[2023-05-07] MEDS ORDERED: AMINO AC/ELECTROLYTE/DEX/CALC 2,000 ML IV SCH (18:00)
[2023-05-07] MEDS: SODIUM CHLORIDE 0.9% INJ 10 ML SYR IV SCH (18:37)
[2023-05-07 22:00] VITALS: BP 113/67; TEMP 97.9; O2SAT 97
[2023-05-08] VITALS (17 sets, daily range): BP systolic 72–141; BP diastolic 49–88; TEMP 97–98.9; O2SAT 93–100
[2023-05-08] MEDS: KETOROLAC 30 MG/ML 1ML VIAL IV SCH ×4 (01:48→19:20)
[2023-05-08] MEDS: SODIUM CHLORIDE 0.9% INJ 10 ML SYR IV SCH ×2 (05:25→18:34)
[2023-05-08] MEDS: PANTOPRAZOLE 40MG VIAL IV SCH (08:16)
[2023-05-08] MEDS: ADVAIR HFA 115/21MCG INHALER INH SCH ×2 (08:18→20:00)
[2023-05-08] MEDS: SODIUM CHLORIDE 0.9% INJ 10 ML SYR IV PRN (08:20)
[2023-05-08] MEDS ORDERED: fentaNYL 100 MCG/2 ML INJECTION As Ordered ONE ×2 (09:11→10:26)
[2023-05-08] MEDS ORDERED: ONDANSETRON 4MG 2ML VIAL As Ordered ONE (09:11)
[2023-05-08] MEDS ORDERED: MIDAZOLAM INJ 2MG/2ML VIAL As Ordered ONE (09:11)
[2023-05-08] MEDS ORDERED: LIDOCAINE 2% 100MG/5ML SDV (FOR ANES.) As Ordered ONE (09:11)
[2023-05-08] MEDS ORDERED: ROCURONIUM BROMIDE 50MG/5ML VIAL As Ordered ONE ×2 (09:11→09:40)
[2023-05-08] MEDS ORDERED: propofoL 200 MG/20 ML VIAL As Ordered ONE (09:11)
[2023-05-08] MEDS ORDERED: GLUCAGON INJ 1MG VIAL As Ordered ONE (09:12)
[2023-05-08] MEDS ORDERED: SUGAMMADEX SODIUM 500 MG/5 ML VIAL (BRIDION) As Ordered ONE (09:13)
[2023-05-08] MEDS ORDERED: ceFAZolin 2 GM/D5W 50 ML IV BAG As Ordered ONE (09:51)
[2023-05-08] MEDS ORDERED: HYDROmorphone HCL 2MG/ML 1ML VIAL As Ordered ONE (10:47)
[2023-05-08] MEDS ORDERED: ONDANSETRON 4MG 2ML VIAL IV PRN ×2 (12:00→21:20)
[2023-05-08] MEDS ORDERED: ACETAMINOPHEN 1000MG 100ML IV BAG IV ONE (12:00)
[2023-05-08] MEDS ORDERED: METOCLOPRAMIDE INJ 10MG/2ML VIAL IV PRN (12:00)
[2023-05-08] MEDS ORDERED: LR 1,000 ML IV SCH (12:00)
[2023-05-08] MEDS: fentaNYL 100 MCG/2 ML INJECTION IV PRN ×4 (12:07→12:26)
[2023-05-08] MEDS: HYDROMORPHONE HCL 0.5 MG/ 0.5 ML SYRINGE IV PRN ×3 (12:32→13:15)
[2023-05-08] MEDS: ALVIMOPAN 12 MG CAPSULE (ENTEREG) PO SCH ×2 (14:11→21:49)
[2023-05-08] MEDS ORDERED: FAT EMULSION IV 250 ML IV ONE (18:00)
[2023-05-08] MEDS ORDERED: AMINO AC/ELECTROLYTE/DEX/CALC 2,000 ML IV SCH (18:00)
[2023-05-08] MEDS: INSULIN LISPRO (NovoLOG) PER UNIT SC SCH (18:29)
[2023-05-08] MEDS: MORPHINE 4 MG/ML 1ML VIAL IV PRN (18:30)
[2023-05-08] MEDS: NS 1,000 ML IV SCH (19:53)
[2023-05-08] MEDS ORDERED: NS 1,000 ML IV SCH (21:20)
[2023-05-08] MEDS ORDERED: EPIDURAL/PCA KEYS XX PRN (21:20)
[2023-05-08] MEDS ORDERED: diphenhydrAMINE 50MG/ML VIAL IV PRN (21:20)
[2023-05-08] MEDS ORDERED: NALOXONE INJ 0.4MG/1ML VIAL IV PRN (21:20)
[2023-05-08] MEDS ORDERED: NALBUPHINE HCL 10 MG/ML 1ML AMP IV PRN (21:20)
[2023-05-08 21:47] LABS: BASO % 0.1 % (0.0-1.0); HEMATOCRIT 34.2 % (42.0-52.0); HEMOGLOBIN 11.2 g/dl (13.5-17.5); LYMPH # 0.9 10^3/uL (1.5-5.0); LYMPH % 5.9 % (24.0-44.0); MEAN CORPUSCULAR HEMOGLOBIN 32.7 pg (27.0-33.0); MEAN CORPUSCULAR HGB CONC 32.7 g/dl (32.0-36.5); MEAN CORPUSCULAR VOLUME 99.7 fl (80.0-96.0); MONO # 1.3 10^3/uL (0.0-0.8); MONO % 8.1 % (2.0-8.0); NEUTROPHILS # 13.4 10^3/uL (1.5-8.5); NEUTROPHILS % 85.6 % (36.0-66.0); PLATELET COUNT, AUTOMATED 386 10^3/uL (150-450); RED BLOOD COUNT 3.43 10^6/uL (4.30-6.10); WHITE BLOOD COUNT 15.6 10^3/uL (4.0-10.0)
[2023-05-08 21:51] LABS: ALBUMIN 3.1 G/DL (3.2-5.2); ALKALINE PHOSPHATASE 74 U/L (46-116); ALT/SGPT 12 U/L (7.0-40); AST/SGOT 12 U/L (<34); BILIRUBIN,TOTAL 0.5 MG/DL (0.3-1.2); BLOOD UREA NITROGEN 23 MG/DL (9-23); CALCIUM LEVEL 8.5 MG/DL (8.3-10.6); CARBON DIOXIDE LEVEL 32 MMOL/L (20-31); CHLORIDE LEVEL 101 MMOL/L (98-107); CK-MB VALUE MASS < 1.0 NG/ML (<3.6); CPK CREATINE PHOSPHOKINASE 58 U/L (46-171); CREATININE FOR GFR 0.67 MG/DL (0.70-1.30); GLOMERULAR FILTRATION RATE > 60.0 (>49); GLUCOSE, FASTING 146 MG/DL (74-106); MAGNESIUM LEVEL 1.8 MG/DL (1.8-2.4); MB/CK RELATIVE INDEX 1.72 (< OR =4); POTASSIUM SERUM 4.3 MMOL/L (3.5-5.1); SODIUM LEVEL 140 MMOL/L (136-145); TOTAL PROTEIN 5.2 G/DL (5.7-8.2)
[2023-05-08 22:30] LABS: CK-MB VALUE MASS < 1.0 NG/ML (<3.6)
[2023-05-08 22:31] LABS: CPK CREATINE PHOSPHOKINASE 65 U/L (46-171); MB/CK RELATIVE INDEX 1.53 (< OR =4)
[2023-05-08] MEDS: MORPHINE 1MG/ML IN 0.9% NACL 100ML IV BAG IV PRN (23:54)
[2023-05-09] VITALS (10 sets, daily range): BP systolic 91–109; BP diastolic 58–67; TEMP 97.2–99.3; O2SAT 95–100
[2023-05-09] MEDS: INSULIN LISPRO (NovoLOG) PER UNIT SC SCH ×3 (00:25→12:00)
[2023-05-09] MEDS: KETOROLAC 30 MG/ML 1ML VIAL IV SCH ×2 (02:17→09:47)
[2023-05-09] MEDS: SODIUM CHLORIDE 0.9% INJ 10 ML SYR IV SCH ×2 (05:58→18:00)
[2023-05-09 06:13] LABS: BASO # 0.1 10^3/uL (0.0-0.2); BASO % 0.4 % (0.0-1.0); EOS # 0.1 10^3/uL (0.0-0.5); EOS % 0.5 % (0.0-3.0); HEMATOCRIT 28.9 % (42.0-52.0); HEMOGLOBIN 9.6 g/dl (13.5-17.5); LYMPH # 1.7 10^3/uL (1.5-5.0); LYMPH % 12.4 % (24.0-44.0); MEAN CORPUSCULAR HEMOGLOBIN 32.8 pg (27.0-33.0); MEAN CORPUSCULAR HGB CONC 33.2 g/dl (32.0-36.5); MEAN CORPUSCULAR VOLUME 98.6 fl (80.0-96.0); MONO # 1.5 10^3/uL (0.0-0.8); NEUTROPHILS # 10.4 10^3/uL (1.5-8.5); NEUTROPHILS % 75.5 % (36.0-66.0); PLATELET COUNT, AUTOMATED 328 10^3/uL (150-450); RED BLOOD COUNT 2.93 10^6/uL (4.30-6.10); WHITE BLOOD COUNT 13.8 10^3/uL (4.0-10.0)
[2023-05-09 06:49] LABS: ALBUMIN 2.5 G/DL (3.2-5.2); ALKALINE PHOSPHATASE 64 U/L (46-116); ALT/SGPT 9 U/L (7.0-40); AST/SGOT 10 U/L (<34); BILIRUBIN,TOTAL 0.3 MG/DL (0.3-1.2); BLOOD UREA NITROGEN 28 MG/DL (9-23); CALCIUM LEVEL 8.1 MG/DL (8.3-10.6); CARBON DIOXIDE LEVEL 31 MMOL/L (20-31); CHLORIDE LEVEL 103 MMOL/L (98-107); GLOMERULAR FILTRATION RATE > 60.0 (>49); GLUCOSE, FASTING 116 MG/DL (74-106); MAGNESIUM LEVEL 1.6 MG/DL (1.8-2.4); POTASSIUM SERUM 3.9 MMOL/L (3.5-5.1); SODIUM LEVEL 140 MMOL/L (136-145); TOTAL PROTEIN 4.6 G/DL (5.7-8.2)
[2023-05-09] MEDS: ADVAIR HFA 115/21MCG INHALER INH SCH ×2 (07:34→20:31)
[2023-05-09] MEDS: NS 1,000 ML IV SCH ×2 (08:41→18:36)
[2023-05-09] MEDS ORDERED: IPRATROPIUM 0.5MG/ALBUTEROL 2.5MG INH SOL UD 3ML (DUONEB) NEB PRN (09:15)
[2023-05-09] MEDS: ALVIMOPAN 12 MG CAPSULE (ENTEREG) PO SCH ×2 (09:47→21:15)
[2023-05-09] MEDS: PANTOPRAZOLE 40MG VIAL IV SCH (09:47)
[2023-05-09] MEDS: IPRATROPIUM 0.5MG/ALBUTEROL 2.5MG INH SOL UD 3ML (DUONEB) NEB SCH ×2 (14:13→20:31)
[2023-05-09] MEDS ORDERED: FAT EMULSION IV 250 ML IV ONE (18:00)
[2023-05-09] MEDS ORDERED: MULTIVITAMIN -ADULT INJECTION 10 ML, ZINC/COPPER/MANGANESE/SELENIUM 1 ML in AMINO AC/EL... IV SCH (18:00)
[2023-05-09] MEDS ORDERED: LIDOCAINE 5% (LIDODERM) PATCH TD ONE (21:55)
[2023-05-10] VITALS (10 sets, daily range): BP systolic 98–120; BP diastolic 62–75; TEMP 97.7–100.9; O2SAT 94–98
[2023-05-10] MEDS: IPRATROPIUM 0.5MG/ALBUTEROL 2.5MG INH SOL UD 3ML (DUONEB) NEB SCH ×4 (02:00→20:00)
[2023-05-10] MEDS: NS 1,000 ML IV SCH ×2 (03:56→18:14)
[2023-05-10] MEDS: SODIUM CHLORIDE 0.9% INJ 10 ML SYR IV SCH ×2 (05:47→18:00)
[2023-05-10 06:05] LABS: HEMATOCRIT 26.8 % (42.0-52.0); HEMOGLOBIN 8.8 g/dl (13.5-17.5); MEAN CORPUSCULAR HGB CONC 32.8 g/dl (32.0-36.5); MEAN CORPUSCULAR VOLUME 100.4 fl (80.0-96.0); PLATELET COUNT, AUTOMATED 271 10^3/uL (150-450); RED BLOOD COUNT 2.67 10^6/uL (4.30-6.10); WHITE BLOOD COUNT 13.3 10^3/uL (4.0-10.0)
[2023-05-10 06:38] LABS: ALBUMIN 2.6 G/DL (3.2-5.2); BLOOD UREA NITROGEN 22 MG/DL (9-23); CALCIUM LEVEL 8.1 MG/DL (8.3-10.6); CARBON DIOXIDE LEVEL 29 MMOL/L (20-31); CHLORIDE LEVEL 106 MMOL/L (98-107); CREATININE FOR GFR 0.56 MG/DL (0.70-1.30); GLOMERULAR FILTRATION RATE > 60.0 (>49); GLUCOSE, FASTING 105 MG/DL (74-106); MAGNESIUM LEVEL 1.8 MG/DL (1.8-2.4); PHOSPHORUS LEVEL 2.5 MG/DL (2.4-5.1); POTASSIUM SERUM 3.9 MMOL/L (3.5-5.1); SODIUM LEVEL 141 MMOL/L (136-145)
[2023-05-10] MEDS: MORPHINE 1MG/ML IN 0.9% NACL 100ML IV BAG IV PRN (06:43)
[2023-05-10] MEDS: ADVAIR HFA 115/21MCG INHALER INH SCH ×2 (07:27→20:00)
[2023-05-10] MEDS: PANTOPRAZOLE 40MG VIAL IV SCH (09:40)
[2023-05-10] MEDS: DOCUSATE SOD LIQ 100MG/10ML UDC GT SCH ×2 (10:06→20:52)
[2023-05-10] MEDS: ALVIMOPAN 12 MG CAPSULE (ENTEREG) PO SCH ×2 (10:07→20:52)
[2023-05-10 13:43] LABS: HEMATOCRIT 25.2 % (42.0-52.0); HEMOGLOBIN 8.3 g/dl (13.5-17.5)
[2023-05-10 18:00] LABS: HEMATOCRIT 25.8 % (42.0-52.0); HEMOGLOBIN 8.3 g/dl (13.5-17.5)
[2023-05-10] MEDS ORDERED: FAT EMULSION IV 250 ML IV ONE (18:00)
[2023-05-10] MEDS ORDERED: AMINO AC/ELECTROLYTE/DEX/CALC 2,000 ML IV SCH (18:00)
[2023-05-10] MEDS: ACETAMINOPHEN TAB 650MG DOSE (2X325MG) PO PRN (20:52)
[2023-05-10 20:57] LABS: HEMATOCRIT 25.6 % (42.0-52.0); HEMOGLOBIN 8.5 g/dl (13.5-17.5)
[2023-05-11] VITALS (13 sets, daily range): BP systolic 82–119; BP diastolic 54–77; TEMP 96.6–99.5; O2SAT 94–98
[2023-05-11] MEDS: NS 1,000 ML IV SCH ×2 (00:12→17:54)
[2023-05-11 00:59] LABS: HEMATOCRIT 24.1 % (42.0-52.0)
[2023-05-11] MEDS: IPRATROPIUM 0.5MG/ALBUTEROL 2.5MG INH SOL UD 3ML (DUONEB) NEB SCH ×4 (02:00→20:00)
[2023-05-11] MEDS: SODIUM CHLORIDE 0.9% INJ 10 ML SYR IV SCH ×2 (05:53→17:42)
[2023-05-11 06:31] LABS: HEMATOCRIT 29.1 % (42.0-52.0); HEMOGLOBIN 9.5 g/dl (13.5-17.5)
[2023-05-11] MEDS: MORPHINE 1MG/ML IN 0.9% NACL 100ML IV BAG IV PRN (06:52)
[2023-05-11] MEDS: ADVAIR HFA 115/21MCG INHALER INH SCH ×2 (07:32→20:00)
[2023-05-11 08:54] LABS: HEMATOCRIT 26.7 % (42.0-52.0)
[2023-05-11 08:56] LABS: HEMOGLOBIN 8.9 g/dl (13.5-17.5)
[2023-05-11] MEDS: ALVIMOPAN 12 MG CAPSULE (ENTEREG) PO SCH ×2 (09:22→20:05)
[2023-05-11] MEDS: DOCUSATE SOD LIQ 100MG/10ML UDC GT SCH ×2 (09:22→20:05)
[2023-05-11] MEDS: PANTOPRAZOLE 40MG VIAL IV SCH (09:22)
[2023-05-11] MEDS ORDERED: BISACODYL 10MG SUPP PR ONE (09:40)
[2023-05-11] MEDS ORDERED: MULTIVITAMIN -ADULT INJECTION 10 ML, ZINC/COPPER/MANGANESE/SELENIUM 1 ML in AMINO AC/EL... IV SCH (18:00)
[2023-05-11] MEDS ORDERED: FAT EMULSION IV 250 ML IV ONE (18:00)
[2023-05-11] MEDS ORDERED: NS 250 ML IV ONE (18:20)
[2023-05-11] MEDS ORDERED: SODIUM CHLORIDE 0.9% 1000ML IV ONE (18:20)
[2023-05-11] MEDS ORDERED: METOPROLOL 5 MG/5 ML VIAL IV STA (21:00)
[2023-05-11] MEDS ORDERED: HEPARIN SOD (PORCINE) 5000UNITS/ML 1ML VIAL/SYRINGE IV PRN (21:05)
[2023-05-11] MEDS ORDERED: HEPARIN DRIP 25,000 UNITS in IV 1 EA IV SCH (21:10)
[2023-05-11] MEDS ORDERED: METOPROLOL TART 25 MG TABLET PO ONE (21:15)
[2023-05-11 21:24] LABS: HEMATOCRIT 30.9 % (42.0-52.0); HEMOGLOBIN 10.3 g/dl (13.5-17.5); MEAN CORPUSCULAR HEMOGLOBIN 33.3 pg (27.0-33.0); MEAN CORPUSCULAR HGB CONC 33.3 g/dl (32.0-36.5); PLATELET COUNT, AUTOMATED 372 10^3/uL (150-450); RED BLOOD COUNT 3.09 10^6/uL (4.30-6.10)
[2023-05-11] MEDS ORDERED: DIGOXIN INJ 0.5 MG/2 ML AMP IV STA (21:24)
[2023-05-11] MEDS ORDERED: HEPARIN SOD (PORCINE) 5000UNITS/ML 1ML VIAL/SYRINGE IV ONE (21:30)
[2023-05-11] MEDS ORDERED: NS 500 ML IV STA (21:33)
[2023-05-11 21:34] LABS: WHITE BLOOD COUNT 31.3 10^3/uL (4.0-10.0)
[2023-05-11] MEDS ORDERED: ISOVUE-370 76% 100ML VIAL As Ordered ONE (22:22)
[2023-05-11] MEDS ORDERED: NS 1,000 ML IV ONE (22:40)
[2023-05-11] MEDS: PIPERACILLIN/TAZOBACTAM SOD 3.375 GM in D5W MINI-BAG PLUS 50 ML IV SCH (23:54)
[2023-05-12] VITALS (21 sets, daily range): BP systolic 97–112; BP diastolic 58–70; TEMP 96.6–98.7; O2SAT 94–100
[2023-05-12 00:29] LABS: BASO # 0.1 10^3/uL (0.0-0.2); BASO % 0.3 % (0.0-1.0); EOS % 0.1 % (0.0-3.0); LYMPH # 0.8 10^3/uL (1.5-5.0); LYMPH % 2.7 % (24.0-44.0); MONO % 5.9 % (2.0-8.0); NEUTROPHILS # 28.2 10^3/uL (1.5-8.5); NEUTROPHILS % 90.3 % (36.0-66.0)
[2023-05-12 00:39] LABS: MONO # 1.9 10^3/uL (0.0-0.8)
[2023-05-12 01:08] LABS: ALKALINE PHOSPHATASE 69 U/L (46-116); ALT/SGPT < 9 U/L (7.0-40); AST/SGOT 10 U/L (<34); BILIRUBIN,TOTAL 0.7 MG/DL (0.3-1.2); BLOOD UREA NITROGEN 25 MG/DL (9-23); CALCIUM LEVEL 7.5 MG/DL (8.3-10.6); CARBON DIOXIDE LEVEL 27 MMOL/L (20-31); CHLORIDE LEVEL 107 MMOL/L (98-107); CREATININE FOR GFR 0.62 MG/DL (0.70-1.30); GLOMERULAR FILTRATION RATE > 60.0 (>49); GLUCOSE, FASTING 117 MG/DL (74-106); MAGNESIUM LEVEL 1.6 MG/DL (1.8-2.4); POTASSIUM SERUM 4.1 MMOL/L (3.5-5.1); SODIUM LEVEL 142 MMOL/L (136-145); TOTAL PROTEIN 4.3 G/DL (5.7-8.2)
[2023-05-12] MEDS ORDERED: ACETAMINOPHEN 1000MG 100ML IV BAG As Ordered ONE (01:38)
[2023-05-12] MEDS ORDERED: fentaNYL 250 MCG/5 ML INJECTION As Ordered ONE (01:38)
[2023-05-12] MEDS ORDERED: LIDOCAINE 2% 100MG/5ML SDV (FOR ANES.) As Ordered ONE (01:38)
[2023-05-12] MEDS ORDERED: ONDANSETRON 4MG 2ML VIAL As Ordered ONE (01:38)
[2023-05-12] MEDS ORDERED: ROCURONIUM BROMIDE 50MG/5ML VIAL As Ordered ONE (01:38)
[2023-05-12] MEDS ORDERED: SUGAMMADEX SODIUM 500 MG/5 ML VIAL (BRIDION) As Ordered ONE (01:38)
[2023-05-12] MEDS ORDERED: propofoL 200 MG/20 ML VIAL As Ordered ONE (01:38)
[2023-05-12] MEDS ORDERED: SEVOFLURANE INHAL SOLN 250 ML BTL As Ordered ONE (01:38)
[2023-05-12] MEDS ORDERED: MIDAZOLAM INJ 2MG/2ML VIAL As Ordered ONE (01:38)
[2023-05-12] MEDS ORDERED: DESFLURANE 240 ML INHALANT As Ordered ONE (01:38)
[2023-05-12] MEDS ORDERED: METOPROLOL 5 MG/5 ML VIAL As Ordered ONE (01:44)
[2023-05-12] MEDS ORDERED: ePHEDrine SULFATE 25 MG/5 ML(5MG/ML) SYRINGE As Ordered ONE (01:52)
[2023-05-12] MEDS ORDERED: PHENYLephrine 500MCG 5ML (100MCG/ML) SYRINGE As Ordered ONE (01:52)
[2023-05-12] MEDS: IPRATROPIUM 0.5MG/ALBUTEROL 2.5MG INH SOL UD 3ML (DUONEB) NEB SCH ×5 (02:00→19:10)
[2023-05-12] MEDS ORDERED: VANCOMYCIN HCL 1,000 MG, VIAL MATE ADAPTER 1 EACH in D5W 250 ML IV ONE (02:00)
[2023-05-12] MEDS: MAG SULF 1GM/100ML (MAG RUN) 100 ML IV SCH ×2 (04:20→05:23)
[2023-05-12] MEDS: NS 1,000 ML IV SCH ×4 (05:29→19:51)
[2023-05-12] MEDS: SODIUM CHLORIDE 0.9% INJ 10 ML SYR IV SCH ×2 (05:29→17:19)
[2023-05-12] MEDS: PIPERACILLIN/TAZOBACTAM SOD 3.375 GM in D5W MINI-BAG PLUS 50 ML IV SCH ×3 (06:34→18:02)
[2023-05-12 06:41] LABS: HEMATOCRIT 27.2 % (42.0-52.0); HEMOGLOBIN 8.9 g/dl (13.5-17.5); MEAN CORPUSCULAR HEMOGLOBIN 32.4 pg (27.0-33.0); MEAN CORPUSCULAR HGB CONC 32.7 g/dl (32.0-36.5); MEAN CORPUSCULAR VOLUME 98.9 fl (80.0-96.0); PLATELET COUNT, AUTOMATED 363 10^3/uL (150-450); RED BLOOD COUNT 2.75 10^6/uL (4.30-6.10); WHITE BLOOD COUNT 25.1 10^3/uL (4.0-10.0)
[2023-05-12 07:21] LABS: BLOOD UREA NITROGEN 22 MG/DL (9-23); CALCIUM LEVEL 7.4 MG/DL (8.3-10.6); CARBON DIOXIDE LEVEL 27 MMOL/L (20-31); CHLORIDE LEVEL 107 MMOL/L (98-107); CREATININE FOR GFR 0.58 MG/DL (0.70-1.30); GLOMERULAR FILTRATION RATE > 60.0 (>49); GLUCOSE, FASTING 162 MG/DL (74-106); MAGNESIUM LEVEL 2.2 MG/DL (1.8-2.4); SODIUM LEVEL 139 MMOL/L (136-145)
[2023-05-12] MEDS: ADVAIR HFA 115/21MCG INHALER INH SCH ×2 (08:16→19:11)
[2023-05-12] MEDS: ALVIMOPAN 12 MG CAPSULE (ENTEREG) PO SCH ×2 (09:00→21:00)
[2023-05-12] MEDS: DOCUSATE SOD LIQ 100MG/10ML UDC GT SCH ×2 (09:00→22:08)
[2023-05-12] MEDS ORDERED: VANCOMYCIN HCL 750 MG, VIAL MATE ADAPTER 1 EACH in D5W 250 ML IV SCH (09:00)
[2023-05-12] MEDS: PANTOPRAZOLE 40MG VIAL IV SCH (09:30)
[2023-05-12] MEDS ORDERED: FAT EMULSION IV 250 ML IV ONE (18:00)
[2023-05-12] MEDS ORDERED: AMINO AC/ELECTROLYTE/DEX/CALC 2,000 ML IV SCH (18:00)
[2023-05-12] MEDS ORDERED: DEXTROSE 50% 50ML SYRINGE IV PRN (22:50)
[2023-05-12] MEDS ORDERED: GLUCAGON INJ 1MG VIAL SC PRN (22:50)
[2023-05-13] VITALS (25 sets, daily range): BP systolic 101–118; BP diastolic 58–70; TEMP 97–98.9; O2SAT 88–97
[2023-05-13] MEDS: MORPHINE 1MG/ML IN 0.9% NACL 100ML IV BAG IV PRN (00:12)
[2023-05-13] MEDS: PIPERACILLIN/TAZOBACTAM SOD 3.375 GM in D5W MINI-BAG PLUS 50 ML IV SCH ×5 (00:19→23:31)
[2023-05-13] MEDS: IPRATROPIUM 0.5MG/ALBUTEROL 2.5MG INH SOL UD 3ML (DUONEB) NEB SCH ×4 (01:10→19:34)
[2023-05-13] MEDS: NS 1,000 ML IV SCH (03:30)
[2023-05-13] MEDS: SODIUM CHLORIDE 0.9% INJ 10 ML SYR IV SCH ×2 (05:22→17:32)
[2023-05-13] MEDS ORDERED: METOPROLOL TART 12.5 MG PER 1/2 TAB PO STA (05:51)
[2023-05-13 05:52] LABS: HEMATOCRIT 23.2 % (42.0-52.0); HEMOGLOBIN 7.8 g/dl (13.5-17.5); MEAN CORPUSCULAR HEMOGLOBIN 32.8 pg (27.0-33.0); MEAN CORPUSCULAR HGB CONC 33.6 g/dl (32.0-36.5); MEAN CORPUSCULAR VOLUME 97.5 fl (80.0-96.0); PLATELET COUNT, AUTOMATED 373 10^3/uL (150-450); RED BLOOD COUNT 2.38 10^6/uL (4.30-6.10); WHITE BLOOD COUNT 21.6 10^3/uL (4.0-10.0)
[2023-05-13 06:14] LABS: BLOOD UREA NITROGEN 17 MG/DL (9-23); CALCIUM LEVEL 7.3 MG/DL (8.3-10.6); CARBON DIOXIDE LEVEL 28 MMOL/L (20-31); CHLORIDE LEVEL 106 MMOL/L (98-107); CREATININE FOR GFR 0.55 MG/DL (0.70-1.30); GLOMERULAR FILTRATION RATE > 60.0 (>49); GLUCOSE, FASTING 120 MG/DL (74-106); POTASSIUM SERUM 3.6 MMOL/L (3.5-5.1); SODIUM LEVEL 141 MMOL/L (136-145)
[2023-05-13 07:42] LABS: MAGNESIUM LEVEL 1.7 MG/DL (1.8-2.4)
[2023-05-13] MEDS ORDERED: MAG SULF 1GM/100ML (MAG RUN) 1 GM in IV 1 EA IV ONE (08:05)
[2023-05-13] MEDS: ADVAIR HFA 115/21MCG INHALER INH SCH ×2 (08:26→19:33)
[2023-05-13] MEDS: PANTOPRAZOLE 40MG VIAL IV SCH (08:43)
[2023-05-13] MEDS: ALVIMOPAN 12 MG CAPSULE (ENTEREG) PO SCH ×2 (08:43→20:30)
[2023-05-13] MEDS: DOCUSATE SOD LIQ 100MG/10ML UDC GT SCH ×2 (08:43→20:30)
[2023-05-13] MEDS: LACTULOSE 20GM/30ML SYRUP UDC PO SCH ×2 (09:55→20:30)
[2023-05-13] MEDS: KETOROLAC 30 MG/ML 1ML VIAL IV SCH ×3 (13:09→23:19)
[2023-05-13] MEDS: INSULIN LISPRO (NovoLOG) PER UNIT SC SCH ×2 (17:31→23:29)
[2023-05-13] MEDS ORDERED: AMINO AC/ELECTROLYTE/DEX/CALC 2,000 ML IV SCH (18:00)
[2023-05-13] MEDS ORDERED: FAT EMULSION IV 250 ML IV ONE (18:00)
[2023-05-14] VITALS (21 sets, daily range): BP systolic 105–119; BP diastolic 62–74; TEMP 97–100.1; O2SAT 94–98
[2023-05-14 01:47] LABS: HEMATOCRIT 23.6 % (42.0-52.0); HEMOGLOBIN 7.8 g/dl (13.5-17.5); MEAN CORPUSCULAR HEMOGLOBIN 32.4 pg (27.0-33.0); MEAN CORPUSCULAR HGB CONC 33.1 g/dl (32.0-36.5); MEAN CORPUSCULAR VOLUME 97.9 fl (80.0-96.0); PLATELET COUNT, AUTOMATED 399 10^3/uL (150-450); RED BLOOD COUNT 2.41 10^6/uL (4.30-6.10); WHITE BLOOD COUNT 20.6 10^3/uL (4.0-10.0)
[2023-05-14] MEDS: MORPHINE 1MG/ML IN 0.9% NACL 100ML IV BAG IV PRN (01:50)
[2023-05-14] MEDS: IPRATROPIUM 0.5MG/ALBUTEROL 2.5MG INH SOL UD 3ML (DUONEB) NEB SCH ×4 (02:00→18:56)
[2023-05-14] MEDS: SODIUM CHLORIDE 0.9% INJ 10 ML SYR IV SCH ×2 (06:00→18:00)
[2023-05-14] MEDS: PIPERACILLIN/TAZOBACTAM SOD 3.375 GM in D5W MINI-BAG PLUS 50 ML IV SCH ×4 (06:22→23:36)
[2023-05-14] MEDS: KETOROLAC 30 MG/ML 1ML VIAL IV SCH ×4 (06:25→23:29)
[2023-05-14] MEDS: INSULIN LISPRO (NovoLOG) PER UNIT SC SCH ×4 (06:26→23:37)
[2023-05-14] MEDS: ADVAIR HFA 115/21MCG INHALER INH SCH ×2 (07:06→18:55)
[2023-05-14] MEDS: LACTULOSE 20GM/30ML SYRUP UDC PO SCH ×2 (10:06→20:18)
[2023-05-14] MEDS: ALVIMOPAN 12 MG CAPSULE (ENTEREG) PO SCH ×2 (10:06→20:18)
[2023-05-14] MEDS: DOCUSATE SOD LIQ 100MG/10ML UDC GT SCH ×2 (10:06→20:18)
[2023-05-14] MEDS: PANTOPRAZOLE 40MG VIAL IV SCH (10:06)
[2023-05-14] MEDS ORDERED: FAT EMULSION IV 250 ML IV ONE (18:00)
[2023-05-14] MEDS ORDERED: MULTIVITAMIN -ADULT INJECTION 10 ML, ZINC/COPPER/MANGANESE/SELENIUM 1 ML, POTASSIUM CHL... IV SCH ×5 (18:00)
[2023-05-14 23:49] LABS: HEMATOCRIT 24.8 % (42.0-52.0); HEMOGLOBIN 8.4 g/dl (13.5-17.5); MEAN CORPUSCULAR HEMOGLOBIN 32.3 pg (27.0-33.0); MEAN CORPUSCULAR HGB CONC 33.9 g/dl (32.0-36.5); MEAN CORPUSCULAR VOLUME 95.4 fl (80.0-96.0)
[2023-05-14 23:53] LABS: PLATELET COUNT, AUTOMATED 513 10^3/uL (150-450)
[2023-05-15] VITALS (20 sets, daily range): BP systolic 102–128; BP diastolic 63–82; TEMP 98–100.4; O2SAT 94–98
[2023-05-15] MEDS: IPRATROPIUM 0.5MG/ALBUTEROL 2.5MG INH SOL UD 3ML (DUONEB) NEB SCH ×2 (01:41→08:00)
[2023-05-15] MEDS ORDERED: METOPROLOL TART 25 MG TABLET PO ONE (04:40)
[2023-05-15] MEDS: KETOROLAC 30 MG/ML 1ML VIAL IV SCH ×3 (04:54→18:30)
[2023-05-15] MEDS: PIPERACILLIN/TAZOBACTAM SOD 3.375 GM in D5W MINI-BAG PLUS 50 ML IV SCH ×3 (04:55→18:29)
[2023-05-15] MEDS: SODIUM CHLORIDE 0.9% INJ 10 ML SYR IV SCH ×2 (04:56→18:00)
[2023-05-15 05:56] LABS: HEMATOCRIT 23.4 % (42.0-52.0); MEAN CORPUSCULAR HEMOGLOBIN 32.9 pg (27.0-33.0); MEAN CORPUSCULAR HGB CONC 34.2 g/dl (32.0-36.5); MEAN CORPUSCULAR VOLUME 96.3 fl (80.0-96.0); PLATELET COUNT, AUTOMATED 480 10^3/uL (150-450); RED BLOOD COUNT 2.43 10^6/uL (4.30-6.10); WHITE BLOOD COUNT 20.9 10^3/uL (4.0-10.0)
[2023-05-15] MEDS: INSULIN LISPRO (NovoLOG) PER UNIT SC SCH ×3 (06:00→18:00)
[2023-05-15 06:26] LABS: BLOOD UREA NITROGEN 13 MG/DL (9-23); CALCIUM LEVEL 7.6 MG/DL (8.3-10.6); CARBON DIOXIDE LEVEL 26 MMOL/L (20-31); CHLORIDE LEVEL 105 MMOL/L (98-107); CREATININE FOR GFR 0.49 MG/DL (0.70-1.30); GLOMERULAR FILTRATION RATE > 60.0 (>49); GLUCOSE, FASTING 123 MG/DL (74-106); MAGNESIUM LEVEL 1.9 MG/DL (1.8-2.4); POTASSIUM SERUM 3.3 MMOL/L (3.5-5.1); SODIUM LEVEL 141 MMOL/L (136-145)
[2023-05-15] MEDS: ADVAIR HFA 115/21MCG INHALER INH SCH ×2 (08:26→19:17)
[2023-05-15] MEDS: PANTOPRAZOLE 40MG VIAL IV SCH (09:06)
[2023-05-15] MEDS: DOCUSATE SOD LIQ 100MG/10ML UDC GT SCH ×2 (09:07→20:28)
[2023-05-15] MEDS: TAMSULOSIN 0.4 MG CAP PO SCH (09:07)
[2023-05-15] MEDS: LACTULOSE 20GM/30ML SYRUP UDC PO SCH ×2 (09:07→20:27)
[2023-05-15] MEDS: KCL 10MEQ/100ML SWI (KRUN) 10 MEQ in IV 1 EA IV SCH ×2 (09:07→12:03)
[2023-05-15] MEDS: MORPHINE 1MG/ML IN 0.9% NACL 100ML IV BAG IV PRN (10:59)
[2023-05-15] MEDS ORDERED: FAT EMULSION IV 250 ML IV ONE (18:00)
[2023-05-15] MEDS: ACETAMINOPHEN TAB 650MG DOSE (2X325MG) PO PRN (18:33)
[2023-05-16] VITALS (14 sets, daily range): BP systolic 102–156; BP diastolic 55–90; TEMP 97.3–99; O2SAT 94–98
[2023-05-16] MEDS: PIPERACILLIN/TAZOBACTAM SOD 3.375 GM in D5W MINI-BAG PLUS 50 ML IV SCH ×5 (01:19→23:56)
[2023-05-16] MEDS: KETOROLAC 30 MG/ML 1ML VIAL IV SCH ×2 (01:20→05:21)
[2023-05-16 04:13] LABS: MEAN CORPUSCULAR HEMOGLOBIN 32.2 pg (27.0-33.0); MEAN CORPUSCULAR HGB CONC 33.2 g/dl (32.0-36.5); MEAN CORPUSCULAR VOLUME 97.2 fl (80.0-96.0); PLATELET COUNT, AUTOMATED 470 10^3/uL (150-450); RED BLOOD COUNT 2.14 10^6/uL (4.30-6.10); WHITE BLOOD COUNT 15.8 10^3/uL (4.0-10.0)
[2023-05-16 04:22] LABS: HEMATOCRIT 20.8 % (42.0-52.0); HEMOGLOBIN 6.9 g/dl (13.5-17.5)
[2023-05-16 04:37] LABS: BLOOD UREA NITROGEN 15 MG/DL (9-23); CALCIUM LEVEL 7.3 MG/DL (8.3-10.6); CARBON DIOXIDE LEVEL 26 MMOL/L (20-31); CHLORIDE LEVEL 107 MMOL/L (98-107); CREATININE FOR GFR 0.54 MG/DL (0.70-1.30); GLOMERULAR FILTRATION RATE > 60.0 (>49); GLUCOSE, FASTING 125 MG/DL (74-106); POTASSIUM SERUM 3.5 MMOL/L (3.5-5.1); SODIUM LEVEL 141 MMOL/L (136-145)
[2023-05-16] MEDS: INSULIN LISPRO (NovoLOG) PER UNIT SC SCH ×5 (05:02→23:57)
[2023-05-16] MEDS: SODIUM CHLORIDE 0.9% INJ 10 ML SYR IV SCH ×2 (05:03→18:43)
[2023-05-16] MEDS: ADVAIR HFA 115/21MCG INHALER INH SCH ×2 (07:35→20:56)
[2023-05-16] MEDS: PANTOPRAZOLE 40MG VIAL IV SCH (09:04)
[2023-05-16] MEDS: DOCUSATE SOD LIQ 100MG/10ML UDC GT SCH (09:04)
[2023-05-16] MEDS: LACTULOSE 20GM/30ML SYRUP UDC PO SCH ×2 (09:05→20:35)
[2023-05-16] MEDS: TAMSULOSIN 0.4 MG CAP PO SCH (09:05)
[2023-05-16] MEDS: NORCO, ANEXSIA 5/325MG TABLET (HYDROcodone/ACETAMINOPHEN) PO PRN (12:04)
[2023-05-16] MEDS ORDERED: MULTIVITAMIN -ADULT INJECTION 10 ML, ZINC/COPPER/MANGANESE/SELENIUM 1 ML, POTASSIUM CHL... IV SCH ×5 (18:00)
[2023-05-16] MEDS: ACETAMINOPHEN TAB 650MG DOSE (2X325MG) PO PRN ×2 (18:42→23:56)
[2023-05-16] MEDS: oxyCODONE 5MG TAB PO PRN (18:56)
[2023-05-16] MEDS ORDERED: MORPHINE 4 MG/ML 1ML VIAL IV ONE (19:05)
[2023-05-16] MEDS: DOCUSATE SODIUM 100MG CAPSULE PO SCH (20:35)
[2023-05-17] MEDS: NORCO, ANEXSIA 5/325MG TABLET (HYDROcodone/ACETAMINOPHEN) PO PRN ×2 (01:06→11:49)
[2023-05-17] MEDS: SODIUM CHLORIDE 0.9% INJ 10 ML SYR IV PRN ×2 (01:18→20:40)
[2023-05-17] MEDS: PIPERACILLIN/TAZOBACTAM SOD 3.375 GM in D5W MINI-BAG PLUS 50 ML IV SCH ×3 (05:03→17:10)
[2023-05-17] MEDS: SODIUM CHLORIDE 0.9% INJ 10 ML SYR IV SCH ×2 (05:03→17:11)
[2023-05-17 05:21] LABS: HEMATOCRIT 24.9 % (42.0-52.0); HEMOGLOBIN 8.4 g/dl (13.5-17.5); MEAN CORPUSCULAR HEMOGLOBIN 32.6 pg (27.0-33.0); MEAN CORPUSCULAR HGB CONC 33.7 g/dl (32.0-36.5); MEAN CORPUSCULAR VOLUME 96.5 fl (80.0-96.0); PLATELET COUNT, AUTOMATED 553 10^3/uL (150-450); RED BLOOD COUNT 2.58 10^6/uL (4.30-6.10); WHITE BLOOD COUNT 23.5 10^3/uL (4.0-10.0)
[2023-05-17 05:38] LABS: BLOOD UREA NITROGEN 13 MG/DL (9-23); CALCIUM LEVEL 7.1 MG/DL (8.3-10.6); CARBON DIOXIDE LEVEL 25 MMOL/L (20-31); CHLORIDE LEVEL 109 MMOL/L (98-107); CREATININE FOR GFR 0.56 MG/DL (0.70-1.30); GLOMERULAR FILTRATION RATE > 60.0 (>49); GLUCOSE, FASTING 84 MG/DL (74-106); SODIUM LEVEL 141 MMOL/L (136-145)
[2023-05-17] MEDS: INSULIN LISPRO (NovoLOG) PER UNIT SC SCH ×4 (05:43→23:19)
[2023-05-17 05:54] VITALS: BP 103/63; TEMP 100; O2SAT 95
[2023-05-17 06:08] VITALS: BP 106/72; TEMP 99.2
[2023-05-17] MEDS: ACETAMINOPHEN TAB 650MG DOSE (2X325MG) PO PRN (06:11)
[2023-05-17] MEDS ORDERED: ISOVUE-370 76% 100ML VIAL As Ordered ONE (07:58)
[2023-05-17] MEDS: ADVAIR HFA 115/21MCG INHALER INH SCH ×2 (08:08→19:12)
[2023-05-17] MEDS: PANTOPRAZOLE 40MG VIAL IV SCH (09:02)
[2023-05-17] MEDS: TAMSULOSIN 0.4 MG CAP PO SCH (09:02)
[2023-05-17] MEDS: DOCUSATE SODIUM 100MG CAPSULE PO SCH ×2 (09:02→20:38)
[2023-05-17] MEDS: oxyCODONE 5MG TAB PO PRN ×2 (09:08→14:50)
[2023-05-17] MEDS ORDERED: LIDOCAINE 1% MDV 20ML VIAL As Ordered ONE (12:35)
[2023-05-17 14:00] VITALS: BP 104/64; TEMP 99; O2SAT 97
[2023-05-17] MEDS: MORPHINE 4 MG/ML 1ML VIAL IV PRN ×3 (17:11→23:18)
[2023-05-17 20:30] VITALS: BP 107/64; TEMP 98.4; O2SAT 95
[2023-05-18] MEDS: PIPERACILLIN/TAZOBACTAM SOD 3.375 GM in D5W MINI-BAG PLUS 50 ML IV SCH ×5 (00:26→23:48)
[2023-05-18] MEDS: SODIUM CHLORIDE 0.9% INJ 10 ML SYR IV PRN ×3 (01:06→23:49)
[2023-05-18 04:48] VITALS: BP 110/68; TEMP 98.8; O2SAT 93
[2023-05-18] MEDS: MORPHINE 4 MG/ML 1ML VIAL IV PRN ×6 (04:51→23:48)
[2023-05-18] MEDS: SODIUM CHLORIDE 0.9% INJ 10 ML SYR IV SCH ×2 (05:01→17:40)
[2023-05-18] MEDS: INSULIN LISPRO (NovoLOG) PER UNIT SC SCH ×4 (05:33→23:48)
[2023-05-18 06:12] LABS: HEMATOCRIT 28.1 % (42.0-52.0); HEMOGLOBIN 9.5 g/dl (13.5-17.5); MEAN CORPUSCULAR HEMOGLOBIN 32.1 pg (27.0-33.0); MEAN CORPUSCULAR HGB CONC 33.8 g/dl (32.0-36.5); MEAN CORPUSCULAR VOLUME 94.9 fl (80.0-96.0); PLATELET COUNT, AUTOMATED 691 10^3/uL (150-450); RED BLOOD COUNT 2.96 10^6/uL (4.30-6.10); WHITE BLOOD COUNT 19.8 10^3/uL (4.0-10.0)
[2023-05-18] MEDS: ADVAIR HFA 115/21MCG INHALER INH SCH ×2 (06:56→20:00)
[2023-05-18 06:59] LABS: BLOOD UREA NITROGEN 10 MG/DL (9-23); CALCIUM LEVEL 7.6 MG/DL (8.3-10.6); CARBON DIOXIDE LEVEL 26 MMOL/L (20-31); CHLORIDE LEVEL 104 MMOL/L (98-107); CREATININE FOR GFR 0.57 MG/DL (0.70-1.30); GLOMERULAR FILTRATION RATE > 60.0 (>49); GLUCOSE, FASTING 111 MG/DL (74-106); POTASSIUM SERUM 4.2 MMOL/L (3.5-5.1); SODIUM LEVEL 137 MMOL/L (136-145)
[2023-05-18] MEDS: DOCUSATE SODIUM 100MG CAPSULE PO SCH ×2 (09:21→20:55)
[2023-05-18] MEDS: TAMSULOSIN 0.4 MG CAP PO SCH (09:21)
[2023-05-18] MEDS: PANTOPRAZOLE 40MG VIAL IV SCH (09:21)
[2023-05-18 14:00] VITALS: BP 111/76; TEMP 98.7; O2SAT 91
[2023-05-18] MEDS ORDERED: MULTIVITAMIN -ADULT INJECTION 10 ML, ZINC/COPPER/MANGANESE/SELENIUM 1 ML, POTASSIUM CHL... IV SCH ×10 (18:00)
[2023-05-18 20:06] VITALS: BP 104/64; TEMP 99.3; O2SAT 95
[2023-05-19] MEDS: PIPERACILLIN/TAZOBACTAM SOD 3.375 GM in D5W MINI-BAG PLUS 50 ML IV SCH ×4 (05:43→23:49)
[2023-05-19] MEDS: INSULIN LISPRO (NovoLOG) PER UNIT SC SCH ×4 (05:44→23:45)
[2023-05-19 05:54] VITALS: BP 104/64; TEMP 98.6; O2SAT 94
[2023-05-19 06:38] LABS: BLOOD UREA NITROGEN 10 MG/DL (9-23); CALCIUM LEVEL 7.8 MG/DL (8.3-10.6); CARBON DIOXIDE LEVEL 27 MMOL/L (20-31); CHLORIDE LEVEL 104 MMOL/L (98-107); CREATININE FOR GFR 0.57 MG/DL (0.70-1.30); GLOMERULAR FILTRATION RATE > 60.0 (>49); GLUCOSE, FASTING 114 MG/DL (74-106); POTASSIUM SERUM 4.5 MMOL/L (3.5-5.1); SODIUM LEVEL 139 MMOL/L (136-145)
[2023-05-19] MEDS: SODIUM CHLORIDE 0.9% INJ 10 ML SYR IV SCH ×2 (06:51→18:25)
[2023-05-19] MEDS: MORPHINE 4 MG/ML 1ML VIAL IV PRN (06:58)
[2023-05-19] MEDS: ADVAIR HFA 115/21MCG INHALER INH SCH ×2 (08:07→20:00)
[2023-05-19] MEDS: PANTOPRAZOLE 40MG VIAL IV SCH (09:42)
[2023-05-19] MEDS: TAMSULOSIN 0.4 MG CAP PO SCH (09:43)
[2023-05-19] MEDS: DOCUSATE SODIUM 100MG CAPSULE PO SCH ×2 (09:43→20:56)
[2023-05-19] MEDS: ACETAMINOPHEN TAB 650MG DOSE (2X325MG) PO PRN ×2 (09:43→16:15)
[2023-05-19] MEDS: SODIUM CHLORIDE 0.9% INJ 10 ML SYR IV PRN (09:44)
[2023-05-19 14:00] VITALS: BP 100/60; TEMP 98.1; O2SAT 95
[2023-05-19] MEDS ORDERED: AMINO AC/ELECTROLYTE/DEX/CALC 2,566 ML IV SCH (18:00)
[2023-05-19] MEDS ORDERED: traMADol 50 MG TAB PO ONE (21:00)
[2023-05-19 21:34] VITALS: BP 100/44; TEMP 98.6; O2SAT 94
[2023-05-20] MEDS ORDERED: OCTREOTIDE ACETATE 100MCG/ML VIAL **IV ADMINISTRATION ONLY IV SCH (06:00)
[2023-05-20] MEDS: PIPERACILLIN/TAZOBACTAM SOD 3.375 GM in D5W MINI-BAG PLUS 50 ML IV SCH (06:18)
[2023-05-20] MEDS: ACETAMINOPHEN TAB 650MG DOSE (2X325MG) PO PRN (06:18)
[2023-05-20] MEDS: SODIUM CHLORIDE 0.9% INJ 10 ML SYR IV SCH ×2 (06:19→18:48)
[2023-05-20] MEDS: INSULIN LISPRO (NovoLOG) PER UNIT SC SCH ×3 (06:19→17:48)
[2023-05-20 06:20] VITALS: BP 98/62; TEMP 98.2; O2SAT 95
[2023-05-20 06:29] LABS: HEMATOCRIT 29.6 % (42.0-52.0); HEMOGLOBIN 9.9 g/dl (13.5-17.5); MEAN CORPUSCULAR HEMOGLOBIN 32.1 pg (27.0-33.0); MEAN CORPUSCULAR HGB CONC 33.4 g/dl (32.0-36.5); MEAN CORPUSCULAR VOLUME 96.1 fl (80.0-96.0); PLATELET COUNT, AUTOMATED 779 10^3/uL (150-450); RED BLOOD COUNT 3.08 10^6/uL (4.30-6.10)
[2023-05-20 07:09] LABS: BLOOD UREA NITROGEN 13 MG/DL (9-23); CALCIUM LEVEL 8.1 MG/DL (8.3-10.6); CARBON DIOXIDE LEVEL 26 MMOL/L (20-31); CHLORIDE LEVEL 105 MMOL/L (98-107); CREATININE FOR GFR 0.56 MG/DL (0.70-1.30); GLOMERULAR FILTRATION RATE > 60.0 (>49); GLUCOSE, FASTING 114 MG/DL (74-106); POTASSIUM SERUM 4.2 MMOL/L (3.5-5.1); SODIUM LEVEL 138 MMOL/L (136-145)
[2023-05-20 07:40] VITALS: BP 112/70
[2023-05-20] MEDS: PANTOPRAZOLE 40MG VIAL IV SCH (08:30)
[2023-05-20] MEDS: DOCUSATE SODIUM 100MG CAPSULE PO SCH ×2 (08:30→21:05)
[2023-05-20] MEDS: TAMSULOSIN 0.4 MG CAP PO SCH (08:30)
[2023-05-20] MEDS: SODIUM CHLORIDE 0.9% INJ 10 ML SYR IV PRN (08:31)
[2023-05-20] MEDS: metroNIDAZOLE 500 MG in IV 1 EA IV SCH ×2 (09:08→17:12)
[2023-05-20] MEDS: MORPHINE 2 MG/ML 1ML VIAL IV PRN ×2 (09:08→18:47)
[2023-05-20] MEDS: ADVAIR HFA 115/21MCG INHALER INH SCH ×2 (10:24→19:38)
[2023-05-20] MEDS: OCTREOTIDE ACETATE 100MCG/ML VIAL **IV ADMINISTRATION ONLY IV SCH ×2 (10:35→18:47)
[2023-05-20] MEDS: CIPROFLOXACIN 400 MG in IV 1 EA IV SCH (11:24)
[2023-05-20 14:00] VITALS: BP 108/64; TEMP 97.9; O2SAT 95
[2023-05-20] MEDS ORDERED: AMINO AC/ELECTROLYTE/DEX/CALC 2,566 ML IV SCH (18:00)
[2023-05-20 20:53] VITALS: BP 112/64; TEMP 98.8; O2SAT 94
[2023-05-21] MEDS: CIPROFLOXACIN 400 MG in IV 1 EA IV SCH ×2 (00:37→12:54)
[2023-05-21] MEDS: INSULIN LISPRO (NovoLOG) PER UNIT SC SCH ×4 (00:38→17:58)
[2023-05-21] MEDS: metroNIDAZOLE 500 MG in IV 1 EA IV SCH ×3 (02:13→17:59)
[2023-05-21] MEDS: OCTREOTIDE ACETATE 100MCG/ML VIAL **IV ADMINISTRATION ONLY IV SCH ×3 (03:47→19:51)
[2023-05-21] MEDS: MORPHINE 2 MG/ML 1ML VIAL IV PRN ×3 (05:49→18:03)
[2023-05-21] MEDS: SODIUM CHLORIDE 0.9% INJ 10 ML SYR IV SCH ×2 (05:50→19:52)
[2023-05-21 06:14] VITALS: BP 104/62; TEMP 98.1; O2SAT 95
[2023-05-21 06:25] LABS: BLOOD UREA NITROGEN 14 MG/DL (9-23); CALCIUM LEVEL 8.1 MG/DL (8.3-10.6); CARBON DIOXIDE LEVEL 28 MMOL/L (20-31); CHLORIDE LEVEL 106 MMOL/L (98-107); CREATININE FOR GFR 0.59 MG/DL (0.70-1.30); GLOMERULAR FILTRATION RATE > 60.0 (>49); GLUCOSE, FASTING 121 MG/DL (74-106); POTASSIUM SERUM 4.7 MMOL/L (3.5-5.1); SODIUM LEVEL 142 MMOL/L (136-145)
[2023-05-21] MEDS: ADVAIR HFA 115/21MCG INHALER INH SCH ×2 (07:18→19:23)
[2023-05-21] MEDS: PANTOPRAZOLE 40MG VIAL IV SCH (09:36)
[2023-05-21] MEDS: DOCUSATE SODIUM 100MG CAPSULE PO SCH (09:36)
[2023-05-21] MEDS: TAMSULOSIN 0.4 MG CAP PO SCH (09:36)
[2023-05-21 11:34] LABS: HEMATOCRIT 23.7 % (42.0-52.0); MEAN CORPUSCULAR HEMOGLOBIN 32.5 pg (27.0-33.0); MEAN CORPUSCULAR HGB CONC 32.5 g/dl (32.0-36.5); PLATELET COUNT, AUTOMATED 711 10^3/uL (150-450); RED BLOOD COUNT 2.37 10^6/uL (4.30-6.10); WHITE BLOOD COUNT 21.2 10^3/uL (4.0-10.0)
[2023-05-21 11:42] LABS: HEMOGLOBIN 7.7 g/dl (13.5-17.5)
[2023-05-21 13:07] LABS: BLOOD UREA NITROGEN 15 MG/DL (9-23); CALCIUM LEVEL 8.1 MG/DL (8.3-10.6); CARBON DIOXIDE LEVEL 29 MMOL/L (20-31); CHLORIDE LEVEL 106 MMOL/L (98-107); CREATININE FOR GFR 0.59 MG/DL (0.70-1.30); GLOMERULAR FILTRATION RATE > 60.0 (>49); GLUCOSE, FASTING 124 MG/DL (74-106); POTASSIUM SERUM 4.4 MMOL/L (3.5-5.1); SODIUM LEVEL 141 MMOL/L (136-145)
[2023-05-21 14:00] VITALS: BP 110/60; TEMP 98.6; O2SAT 96
[2023-05-21] MEDS ORDERED: MULTIVITAMIN -ADULT INJECTION 10 ML, ZINC/COPPER/MANGANESE/SELENIUM 1 ML in AMINO AC/EL... IV SCH (18:00)
[2023-05-21 21:20] VITALS: BP 102/60; TEMP 98.6; O2SAT 94
[2023-05-21 21:21] VITALS: TEMP 99.1
[2023-05-21 23:00] VITALS: BP 108/62
[2023-05-22] MEDS: DOCUSATE SODIUM 100MG CAPSULE PO SCH ×2 (00:37→08:18)
[2023-05-22] MEDS: INSULIN LISPRO (NovoLOG) PER UNIT SC SCH ×4 (00:38→17:59)
[2023-05-22] MEDS: CIPROFLOXACIN 400 MG in IV 1 EA IV SCH ×2 (00:38→11:50)
[2023-05-22] MEDS: ACETAMINOPHEN TAB 650MG DOSE (2X325MG) PO PRN (00:39)
[2023-05-22] MEDS: SODIUM CHLORIDE 0.9% INJ 10 ML SYR IV PRN ×3 (00:40→03:11)
[2023-05-22] MEDS: metroNIDAZOLE 500 MG in IV 1 EA IV SCH ×3 (01:51→17:29)
[2023-05-22] MEDS: MORPHINE 2 MG/ML 1ML VIAL IV PRN (03:12)
[2023-05-22] MEDS: SODIUM CHLORIDE 0.9% INJ 10 ML SYR IV SCH ×2 (03:12→18:00)
[2023-05-22] MEDS: OCTREOTIDE ACETATE 100MCG/ML VIAL **IV ADMINISTRATION ONLY IV SCH ×3 (03:14→18:42)
[2023-05-22 06:00] VITALS: BP 122/60; TEMP 98.6; O2SAT 95
[2023-05-22 06:05] LABS: HEMATOCRIT 29.1 % (42.0-52.0); HEMOGLOBIN 9.5 g/dl (13.5-17.5); MEAN CORPUSCULAR HGB CONC 32.6 g/dl (32.0-36.5); RED BLOOD COUNT 2.97 10^6/uL (4.30-6.10); WHITE BLOOD COUNT 28.5 10^3/uL (4.0-10.0)
[2023-05-22 06:24] LABS: BLOOD UREA NITROGEN 15 MG/DL (9-23); CALCIUM LEVEL 8.3 MG/DL (8.3-10.6); CARBON DIOXIDE LEVEL 29 MMOL/L (20-31); CHLORIDE LEVEL 105 MMOL/L (98-107); GLOMERULAR FILTRATION RATE > 60.0 (>49); GLUCOSE, FASTING 122 MG/DL (74-106); POTASSIUM SERUM 4.4 MMOL/L (3.5-5.1); SODIUM LEVEL 143 MMOL/L (136-145)
[2023-05-22 06:35] LABS: PLATELET COUNT, AUTOMATED 844 10^3/uL (150-450)
[2023-05-22 07:05] VITALS: TEMP 98.7
[2023-05-22] MEDS: ADVAIR HFA 115/21MCG INHALER INH SCH ×2 (07:56→20:00)
[2023-05-22] MEDS: GASTROGRAFIN SOLUTION 30ML PO SCH ×2 (08:18→08:33)
[2023-05-22] MEDS: PANTOPRAZOLE 40MG VIAL IV SCH (08:18)
[2023-05-22] MEDS: TAMSULOSIN 0.4 MG CAP PO SCH (08:18)
[2023-05-22] MEDS ORDERED: ISOVUE-370 76% 100ML VIAL As Ordered ONE (10:03)
[2023-05-22] MEDS: MORPHINE 4 MG/ML 1ML VIAL IV PRN ×2 (10:26→17:29)
[2023-05-22 14:00] VITALS: BP 102/60; TEMP 97.9; O2SAT 94
[2023-05-22] MEDS ORDERED: LIDOCAINE 1% MDV 20ML VIAL As Ordered ONE (15:49)
[2023-05-22] MEDS ORDERED: AMINO AC/ELECTROLYTE/DEX/CALC 2,566 ML IV SCH (18:00)
[2023-05-22 19:29] VITALS: BP 100/60; TEMP 100; O2SAT 94
[2023-05-22 22:16] VITALS: BP 120/80; TEMP 99.3; O2SAT 94
[2023-05-23] MEDS: DOCUSATE SODIUM 100MG CAPSULE PO SCH ×3 (00:03→20:41)
[2023-05-23] MEDS: SODIUM CHLORIDE 0.9% INJ 10 ML SYR IV PRN ×6 (00:04→23:52)
[2023-05-23] MEDS: CIPROFLOXACIN 400 MG in IV 1 EA IV SCH ×3 (00:04→23:52)
[2023-05-23] MEDS: INSULIN LISPRO (NovoLOG) PER UNIT SC SCH ×5 (00:04→23:52)
[2023-05-23] MEDS: MORPHINE 2 MG/ML 1ML VIAL IV PRN ×5 (00:05→18:23)
[2023-05-23] MEDS: metroNIDAZOLE 500 MG in IV 1 EA IV SCH ×3 (01:39→18:09)
[2023-05-23 01:45] VITALS: BP 110/70; TEMP 97.2; O2SAT 96
[2023-05-23] MEDS: OCTREOTIDE ACETATE 100MCG/ML VIAL **IV ADMINISTRATION ONLY IV SCH ×3 (03:01→18:11)
[2023-05-23] MEDS: SODIUM CHLORIDE 0.9% INJ 10 ML SYR IV SCH ×2 (03:02→18:10)
[2023-05-23 06:00] VITALS: BP 110/72; TEMP 99.5; O2SAT 95
[2023-05-23] MEDS: ADVAIR HFA 115/21MCG INHALER INH SCH ×2 (07:34→19:21)
[2023-05-23 08:49] LABS: HEMATOCRIT 30.3 % (42.0-52.0); HEMOGLOBIN 9.7 g/dl (13.5-17.5); MEAN CORPUSCULAR HEMOGLOBIN 31.6 pg (27.0-33.0); MEAN CORPUSCULAR VOLUME 98.7 fl (80.0-96.0); PLATELET COUNT, AUTOMATED 917 10^3/uL (150-450); RED BLOOD COUNT 3.07 10^6/uL (4.30-6.10)
[2023-05-23] MEDS: PANTOPRAZOLE 40MG VIAL IV SCH (09:01)
[2023-05-23] MEDS: TAMSULOSIN 0.4 MG CAP PO SCH (09:01)
[2023-05-23] MEDS: ASPIRIN 81MG ENTERIC TABLET PO SCH (09:01)
[2023-05-23 09:14] LABS: BLOOD UREA NITROGEN 16 MG/DL (9-23); CALCIUM LEVEL 8.2 MG/DL (8.3-10.6); CARBON DIOXIDE LEVEL 29 MMOL/L (20-31); CHLORIDE LEVEL 103 MMOL/L (98-107); CREATININE FOR GFR 0.61 MG/DL (0.70-1.30); GLOMERULAR FILTRATION RATE > 60.0 (>49); GLUCOSE, FASTING 159 MG/DL (74-106); POTASSIUM SERUM 4.2 MMOL/L (3.5-5.1); SODIUM LEVEL 139 MMOL/L (136-145)
[2023-05-23 14:00] VITALS: BP 102/62; TEMP 98.2; O2SAT 95
[2023-05-23] MEDS ORDERED: MULTIVITAMIN -ADULT INJECTION 10 ML, ZINC/COPPER/MANGANESE/SELENIUM 1 ML in AMINO AC/EL... IV SCH (18:00)
[2023-05-23 20:41] VITALS: BP 98/62; TEMP 99.5; O2SAT 95
[2023-05-23 20:42] VITALS: TEMP 98.7
[2023-05-23] MEDS: ACETAMINOPHEN TAB 650MG DOSE (2X325MG) PO PRN (20:43)
[2023-05-23] MEDS: RAMELTEON 8 MG TAB (ROZEREM) PO PRN (23:52)
[2023-05-24] VITALS (8 sets, daily range): BP systolic 100–120; BP diastolic 58–70; TEMP 98.1–99.3; O2SAT 95–97
[2023-05-24] MEDS: metroNIDAZOLE 500 MG in IV 1 EA IV SCH ×3 (01:11→18:06)
[2023-05-24] MEDS: SODIUM CHLORIDE 0.9% INJ 10 ML SYR IV PRN ×3 (01:11→20:46)
[2023-05-24] MEDS: OCTREOTIDE ACETATE 100MCG/ML VIAL **IV ADMINISTRATION ONLY IV SCH ×3 (02:37→20:46)
[2023-05-24] MEDS: MORPHINE 2 MG/ML 1ML VIAL IV PRN ×3 (02:38→20:48)
[2023-05-24] MEDS: SODIUM CHLORIDE 0.9% INJ 10 ML SYR IV SCH ×2 (06:00→17:36)
[2023-05-24 06:01] LABS: HEMATOCRIT 30.3 % (42.0-52.0); HEMOGLOBIN 9.7 g/dl (13.5-17.5); MEAN CORPUSCULAR HEMOGLOBIN 31.8 pg (27.0-33.0); MEAN CORPUSCULAR VOLUME 99.3 fl (80.0-96.0); PLATELET COUNT, AUTOMATED 922 10^3/uL (150-450); RED BLOOD COUNT 3.05 10^6/uL (4.30-6.10); WHITE BLOOD COUNT 19.6 10^3/uL (4.0-10.0)
[2023-05-24 06:31] LABS: BLOOD UREA NITROGEN 19 MG/DL (9-23); CALCIUM LEVEL 8.4 MG/DL (8.3-10.6); CARBON DIOXIDE LEVEL 27 MMOL/L (20-31); CHLORIDE LEVEL 104 MMOL/L (98-107); CREATININE FOR GFR 0.66 MG/DL (0.70-1.30); GLOMERULAR FILTRATION RATE > 60.0 (>49); GLUCOSE, FASTING 152 MG/DL (74-106); POTASSIUM SERUM 4.9 MMOL/L (3.5-5.1); SODIUM LEVEL 139 MMOL/L (136-145)
[2023-05-24] MEDS: INSULIN LISPRO (NovoLOG) PER UNIT SC SCH ×3 (06:34→18:00)
[2023-05-24] MEDS: ACETAMINOPHEN TAB 650MG DOSE (2X325MG) PO PRN ×2 (06:35→11:01)
[2023-05-24] MEDS: ADVAIR HFA 115/21MCG INHALER INH SCH ×2 (07:25→20:11)
[2023-05-24] MEDS: ASPIRIN 81MG ENTERIC TABLET PO SCH (09:19)
[2023-05-24] MEDS: PANTOPRAZOLE 40MG VIAL IV SCH (09:19)
[2023-05-24] MEDS: TAMSULOSIN 0.4 MG CAP PO SCH (09:19)
[2023-05-24] MEDS: DOCUSATE SODIUM 100MG CAPSULE PO SCH ×2 (09:19→20:46)
[2023-05-24] MEDS: CIPROFLOXACIN 400 MG in IV 1 EA IV SCH (11:01)
[2023-05-24] MEDS ORDERED: AMINO AC/ELECTROLYTE/DEX/CALC 2,566 ML IV SCH (18:00)
[2023-05-24] MEDS: RAMELTEON 8 MG TAB (ROZEREM) PO PRN (20:46)
[2023-05-25] MEDS: CIPROFLOXACIN 400 MG in IV 1 EA IV SCH ×3 (00:15→23:55)
[2023-05-25] MEDS: INSULIN LISPRO (NovoLOG) PER UNIT SC SCH ×5 (00:16→23:54)
[2023-05-25] MEDS: MORPHINE 4 MG/ML 1ML VIAL IV PRN (00:17)
[2023-05-25] MEDS: SODIUM CHLORIDE 0.9% INJ 10 ML SYR IV PRN ×3 (00:17→06:44)
[2023-05-25 02:02] VITALS: BP 108/58; TEMP 99.1; O2SAT 96
[2023-05-25] MEDS: metroNIDAZOLE 500 MG in IV 1 EA IV SCH ×3 (02:03→17:51)
[2023-05-25] MEDS: SODIUM CHLORIDE 0.9% INJ 10 ML SYR IV SCH ×2 (03:16→17:51)
[2023-05-25] MEDS: OCTREOTIDE ACETATE 100MCG/ML VIAL **IV ADMINISTRATION ONLY IV SCH ×3 (03:16→19:53)
[2023-05-25 05:33] VITALS: BP 110/62; TEMP 98.8; O2SAT 95
[2023-05-25 06:08] LABS: HEMATOCRIT 29.5 % (42.0-52.0); HEMOGLOBIN 9.4 g/dl (13.5-17.5); MEAN CORPUSCULAR HEMOGLOBIN 31.3 pg (27.0-33.0); MEAN CORPUSCULAR HGB CONC 31.9 g/dl (32.0-36.5); MEAN CORPUSCULAR VOLUME 98.3 fl (80.0-96.0); PLATELET COUNT, AUTOMATED 949 10^3/uL (150-450); WHITE BLOOD COUNT 17.6 10^3/uL (4.0-10.0)
[2023-05-25] MEDS: ACETAMINOPHEN TAB 650MG DOSE (2X325MG) PO PRN (06:09)
[2023-05-25 06:41] LABS: BLOOD UREA NITROGEN 17 MG/DL (9-23); CALCIUM LEVEL 8.2 MG/DL (8.3-10.6); CARBON DIOXIDE LEVEL 30 MMOL/L (20-31); CHLORIDE LEVEL 103 MMOL/L (98-107); CREATININE FOR GFR 0.59 MG/DL (0.70-1.30); GLOMERULAR FILTRATION RATE > 60.0 (>49); GLUCOSE, FASTING 126 MG/DL (74-106); POTASSIUM SERUM 4.6 MMOL/L (3.5-5.1); SODIUM LEVEL 139 MMOL/L (136-145)
[2023-05-25] MEDS: MORPHINE 2 MG/ML 1ML VIAL IV PRN ×4 (06:45→20:07)
[2023-05-25] MEDS: ADVAIR HFA 115/21MCG INHALER INH SCH ×2 (07:24→20:42)
[2023-05-25] MEDS: TAMSULOSIN 0.4 MG CAP PO SCH (09:39)
[2023-05-25] MEDS: ASPIRIN 81MG ENTERIC TABLET PO SCH (09:39)
[2023-05-25] MEDS: DOCUSATE SODIUM 100MG CAPSULE PO SCH ×2 (09:39→19:53)
[2023-05-25] MEDS: PANTOPRAZOLE 40MG VIAL IV SCH (09:39)
[2023-05-25 14:00] VITALS: BP 106/70; TEMP 98.6; O2SAT 97
[2023-05-25] MEDS ORDERED: MULTIVITAMIN -ADULT INJECTION 10 ML, ZINC/COPPER/MANGANESE/SELENIUM 1 ML in AMINO AC/EL... IV SCH (18:00)
[2023-05-25 20:00] VITALS: BP 116/64; TEMP 99.1; O2SAT 97
[2023-05-26] MEDS: MORPHINE 2 MG/ML 1ML VIAL IV PRN ×4 (01:32→14:28)
[2023-05-26] MEDS: metroNIDAZOLE 500 MG in IV 1 EA IV SCH ×3 (01:32→18:07)
[2023-05-26 02:00] VITALS: BP 118/68; TEMP 98.2; O2SAT 96
[2023-05-26] MEDS: OCTREOTIDE ACETATE 100MCG/ML VIAL **IV ADMINISTRATION ONLY IV SCH ×3 (03:40→19:43)
[2023-05-26 05:37] LABS: HEMATOCRIT 28.7 % (42.0-52.0); HEMOGLOBIN 9.3 g/dl (13.5-17.5); MEAN CORPUSCULAR HGB CONC 32.4 g/dl (32.0-36.5); MEAN CORPUSCULAR VOLUME 98.6 fl (80.0-96.0); PLATELET COUNT, AUTOMATED 870 10^3/uL (150-450); RED BLOOD COUNT 2.91 10^6/uL (4.30-6.10); WHITE BLOOD COUNT 18.4 10^3/uL (4.0-10.0)
[2023-05-26 06:00] VITALS: BP 114/70; TEMP 98.8; O2SAT 97
[2023-05-26 06:01] LABS: BLOOD UREA NITROGEN 17 MG/DL (9-23); CALCIUM LEVEL 8.2 MG/DL (8.3-10.6); CARBON DIOXIDE LEVEL 29 MMOL/L (20-31); CHLORIDE LEVEL 106 MMOL/L (98-107); CREATININE FOR GFR 0.57 MG/DL (0.70-1.30); GLOMERULAR FILTRATION RATE > 60.0 (>49); GLUCOSE, FASTING 121 MG/DL (74-106); POTASSIUM SERUM 4.7 MMOL/L (3.5-5.1); SODIUM LEVEL 142 MMOL/L (136-145)
[2023-05-26] MEDS: INSULIN LISPRO (NovoLOG) PER UNIT SC SCH ×3 (06:18→18:07)
[2023-05-26] MEDS: SODIUM CHLORIDE 0.9% INJ 10 ML SYR IV SCH ×2 (06:19→18:08)
[2023-05-26] MEDS: ADVAIR HFA 115/21MCG INHALER INH SCH ×2 (07:41→19:10)
[2023-05-26 08:00] VITALS: BP 102/60; TEMP 98.4; O2SAT 96
[2023-05-26 09:30] VITALS: BP 102/60; TEMP 98.4; O2SAT 96
[2023-05-26] MEDS: DOCUSATE SODIUM 100MG CAPSULE PO SCH ×2 (09:47→19:46)
[2023-05-26] MEDS: ASPIRIN 81MG ENTERIC TABLET PO SCH (09:47)
[2023-05-26] MEDS: TAMSULOSIN 0.4 MG CAP PO SCH (09:47)
[2023-05-26] MEDS: PANTOPRAZOLE 40MG VIAL IV SCH (09:49)
[2023-05-26] MEDS: CIPROFLOXACIN 400 MG in IV 1 EA IV SCH (11:37)
[2023-05-26] MEDS: SODIUM CHLORIDE 0.9% INJ 10 ML SYR IV PRN (13:22)
[2023-05-26 14:00] VITALS: BP 98/60; TEMP 98.6; O2SAT 97
[2023-05-26] MEDS ORDERED: AMINO AC/ELECTROLYTE/DEX/CALC 2,566 ML IV SCH (18:00)
[2023-05-26] MEDS: MORPHINE 4 MG/ML 1ML VIAL IV PRN (21:06)
[2023-05-26 22:00] VITALS: BP 112/64; TEMP 98.2; TEMP 98.4; O2SAT 95; O2SAT 97
[2023-05-27] VITALS (16 sets, daily range): BP systolic 86–120; BP diastolic 50–67; TEMP 98.8–99.7; O2SAT 97–100
[2023-05-27] MEDS: INSULIN LISPRO (NovoLOG) PER UNIT SC SCH ×3 (00:18→13:07)
[2023-05-27] MEDS: CIPROFLOXACIN 400 MG in IV 1 EA IV SCH ×3 (00:18→23:26)
[2023-05-27] MEDS: metroNIDAZOLE 500 MG in IV 1 EA IV SCH ×3 (01:12→17:27)
[2023-05-27] MEDS: OCTREOTIDE ACETATE 100MCG/ML VIAL **IV ADMINISTRATION ONLY IV SCH ×3 (02:31→18:52)
[2023-05-27] MEDS: ACETAMINOPHEN TAB 650MG DOSE (2X325MG) PO PRN ×2 (03:54→20:55)
[2023-05-27 06:06] LABS: HEMATOCRIT 29.9 % (42.0-52.0); HEMOGLOBIN 9.5 g/dl (13.5-17.5); MEAN CORPUSCULAR HEMOGLOBIN 31.3 pg (27.0-33.0); MEAN CORPUSCULAR HGB CONC 31.8 g/dl (32.0-36.5); MEAN CORPUSCULAR VOLUME 98.4 fl (80.0-96.0); PLATELET COUNT, AUTOMATED 943 10^3/uL (150-450); RED BLOOD COUNT 3.04 10^6/uL (4.30-6.10); WHITE BLOOD COUNT 18.3 10^3/uL (4.0-10.0)
[2023-05-27] MEDS: SODIUM CHLORIDE 0.9% INJ 10 ML SYR IV SCH ×2 (06:19→17:25)
[2023-05-27 06:32] LABS: BLOOD UREA NITROGEN 17 MG/DL (9-23); CALCIUM LEVEL 8.8 MG/DL (8.3-10.6); CARBON DIOXIDE LEVEL 29 MMOL/L (20-31); CHLORIDE LEVEL 104 MMOL/L (98-107); CREATININE FOR GFR 0.58 MG/DL (0.70-1.30); GLOMERULAR FILTRATION RATE > 60.0 (>49); GLUCOSE, FASTING 135 MG/DL (74-106); POTASSIUM SERUM 4.6 MMOL/L (3.5-5.1); PREALBUMIN 16.3 MG/DL (10.0-40.0); SODIUM LEVEL 139 MMOL/L (136-145)
[2023-05-27] MEDS: ADVAIR HFA 115/21MCG INHALER INH SCH ×2 (07:23→20:14)
[2023-05-27] MEDS: ASPIRIN 81MG ENTERIC TABLET PO SCH (08:47)
[2023-05-27] MEDS: PANTOPRAZOLE 40MG VIAL IV SCH (08:47)
[2023-05-27] MEDS: DOCUSATE SODIUM 100MG CAPSULE PO SCH ×2 (08:47→20:50)
[2023-05-27] MEDS: TAMSULOSIN 0.4 MG CAP PO SCH (08:47)
[2023-05-27] MEDS: MORPHINE 2 MG/ML 1ML VIAL IV PRN ×2 (11:35→23:25)
[2023-05-27] MEDS ORDERED: METOPROLOL TART 50 MG TAB PO ONE (12:20)
[2023-05-27] MEDS ORDERED: NS 1,000 ML IV ONE ×3 (12:20→16:00)
[2023-05-27] MEDS ORDERED: DIGOXIN INJ 0.5 MG/2 ML AMP IV STA (12:20)
[2023-05-27] MEDS ORDERED: METOPROLOL 5 MG/5 ML VIAL IV STA (12:46)
[2023-05-27] MEDS ORDERED: APIXABAN 5 MG TAB (ELIQUIS) PO SCH (13:00)
[2023-05-27] MEDS ORDERED: NS 2,000 ML IV ONE (15:00)
[2023-05-27] MEDS: MIDODRINE 5 MG TAB PO SCH (16:49)
[2023-05-27] MEDS ORDERED: METOPROLOL TART 25 MG TABLET PO SCH (19:00)
[2023-05-27] MEDS ORDERED: DIGOXIN INJ 0.5 MG/2 ML AMP IV SCH (19:00)
[2023-05-27] MEDS: APIXABAN 5 MG TAB (ELIQUIS) PO SCH (20:51)
[2023-05-27] MEDS: RAMELTEON 8 MG TAB (ROZEREM) PO PRN (20:55)
[2023-05-27 23:27] LABS: CK-MB VALUE MASS < 1.0 NG/ML (<3.6)
[2023-05-27 23:31] LABS: CPK CREATINE PHOSPHOKINASE < 15 U/L (46-171)
[2023-05-27 23:32] LABS: THYROID STIMULATING HORMONE 2.029 uIU/ML (0.55-4.78); THYROXINE (T4) 10.3 UG/DL (4.5-10.9)
[2023-05-27 23:33] LABS: FREE THYROXINE INDEX 4.2 % (1.4-3.8); T UPTAKE 40.9 % (22.5-37.0)
[2023-05-27 23:36] LABS: PROCALCITONIN 0.08 ng/ml
[2023-05-28] VITALS: BP 98/60; TEMP 98.8; O2SAT 98
[2023-05-28] MEDS: metroNIDAZOLE 500 MG in IV 1 EA IV SCH ×3 (02:20→18:07)
[2023-05-28] MEDS: OCTREOTIDE ACETATE 100MCG/ML VIAL **IV ADMINISTRATION ONLY IV SCH ×3 (02:21→18:07)
[2023-05-28] MEDS: ACETAMINOPHEN TAB 650MG DOSE (2X325MG) PO PRN (03:48)
[2023-05-28] MEDS: MORPHINE 2 MG/ML 1ML VIAL IV PRN ×2 (03:49→20:22)
[2023-05-28 04:00] VITALS: BP 100/57; TEMP 99.4; O2SAT 99
[2023-05-28] MEDS: SODIUM CHLORIDE 0.9% INJ 10 ML SYR IV SCH ×2 (05:21→18:08)
[2023-05-28 06:03] LABS: HEMATOCRIT 28.6 % (42.0-52.0); HEMOGLOBIN 8.8 g/dl (13.5-17.5); MEAN CORPUSCULAR HEMOGLOBIN 30.8 pg (27.0-33.0); MEAN CORPUSCULAR HGB CONC 30.8 g/dl (32.0-36.5); PLATELET COUNT, AUTOMATED 884 10^3/uL (150-450); RED BLOOD COUNT 2.86 10^6/uL (4.30-6.10); WHITE BLOOD COUNT 16.1 10^3/uL (4.0-10.0)
[2023-05-28 06:10] LABS: BLOOD UREA NITROGEN 15 MG/DL (9-23); CARBON DIOXIDE LEVEL 28 MMOL/L (20-31); CHLORIDE LEVEL 108 MMOL/L (98-107); CREATININE FOR GFR 0.61 MG/DL (0.70-1.30); DIGOXIN LEVEL 0.2 NG/ML (0.8-2.0); GLOMERULAR FILTRATION RATE > 60.0 (>49); GLUCOSE, FASTING 99 MG/DL (74-106); POTASSIUM SERUM 4.6 MMOL/L (3.5-5.1); SODIUM LEVEL 143 MMOL/L (136-145)
[2023-05-28] MEDS: ADVAIR HFA 115/21MCG INHALER INH SCH ×2 (07:15→20:00)
[2023-05-28 08:00] VITALS: BP 91/54; TEMP 98.3; O2SAT 97
[2023-05-28] MEDS: APIXABAN 5 MG TAB (ELIQUIS) PO SCH ×2 (08:26→20:01)
[2023-05-28] MEDS: TAMSULOSIN 0.4 MG CAP PO SCH (08:26)
[2023-05-28] MEDS: MIDODRINE 5 MG TAB PO SCH ×3 (08:26→16:11)
[2023-05-28] MEDS: ASPIRIN 81MG ENTERIC TABLET PO SCH (08:27)
[2023-05-28] MEDS: DOCUSATE SODIUM 100MG CAPSULE PO SCH ×2 (08:27→20:01)
[2023-05-28] MEDS: PANTOPRAZOLE 40MG VIAL IV SCH (08:28)
[2023-05-28] MEDS ORDERED: PERCOCET 5MG/325MG TAB PO ONE (10:20)
[2023-05-28] MEDS: NS 1,000 ML IV SCH ×2 (10:46→12:11)
[2023-05-28 12:00] VITALS: BP 90/58; TEMP 98.1; O2SAT 98
[2023-05-28] MEDS: CIPROFLOXACIN 400 MG in IV 1 EA IV SCH (12:11)
[2023-05-28 16:00] VITALS: BP 84/55; TEMP 98.1; O2SAT 95
[2023-05-28 20:00] VITALS: BP 90/56; TEMP 98.1; O2SAT 98
[2023-05-28] MEDS: SODIUM CHLORIDE 0.9% INJ 10 ML SYR IV PRN ×2 (20:06→20:22)
[2023-05-29] VITALS (8 sets, daily range): BP systolic 91–121; BP diastolic 52–74; TEMP 97–98.2; O2SAT 95–99
[2023-05-29] MEDS: CIPROFLOXACIN 400 MG in IV 1 EA IV SCH ×2 (00:14→12:47)
[2023-05-29] MEDS: MORPHINE 2 MG/ML 1ML VIAL IV PRN ×4 (00:14→23:10)
[2023-05-29] MEDS: metroNIDAZOLE 500 MG in IV 1 EA IV SCH ×3 (01:33→17:34)
[2023-05-29] MEDS: SODIUM CHLORIDE 0.9% INJ 10 ML SYR IV SCH ×2 (03:51→17:34)
[2023-05-29] MEDS: OCTREOTIDE ACETATE 100MCG/ML VIAL **IV ADMINISTRATION ONLY IV SCH ×2 (03:51→10:46)
[2023-05-29] MEDS: SODIUM CHLORIDE 0.9% INJ 10 ML SYR IV PRN (04:05)
[2023-05-29 04:14] LABS: HEMATOCRIT 30.2 % (42.0-52.0); HEMOGLOBIN 9.7 g/dl (13.5-17.5); MEAN CORPUSCULAR HEMOGLOBIN 31.7 pg (27.0-33.0); MEAN CORPUSCULAR HGB CONC 32.1 g/dl (32.0-36.5); MEAN CORPUSCULAR VOLUME 98.7 fl (80.0-96.0); PLATELET COUNT, AUTOMATED 899 10^3/uL (150-450); RED BLOOD COUNT 3.06 10^6/uL (4.30-6.10); WHITE BLOOD COUNT 13.7 10^3/uL (4.0-10.0)
[2023-05-29 04:42] LABS: BLOOD UREA NITROGEN 15 MG/DL (9-23); CALCIUM LEVEL 8.4 MG/DL (8.3-10.6); CARBON DIOXIDE LEVEL 29 MMOL/L (20-31); CHLORIDE LEVEL 107 MMOL/L (98-107); CREATININE FOR GFR 0.58 MG/DL (0.70-1.30); GLOMERULAR FILTRATION RATE > 60.0 (>49); GLUCOSE, FASTING 74 MG/DL (74-106); POTASSIUM SERUM 4.7 MMOL/L (3.5-5.1); SODIUM LEVEL 142 MMOL/L (136-145)
[2023-05-29] MEDS: ACETAMINOPHEN TAB 650MG DOSE (2X325MG) PO PRN (06:24)
[2023-05-29] MEDS: ADVAIR HFA 115/21MCG INHALER INH SCH ×2 (07:30→19:11)
[2023-05-29] MEDS: MIDODRINE 5 MG TAB PO SCH ×3 (08:35→16:14)
[2023-05-29] MEDS: PANTOPRAZOLE 40MG VIAL IV SCH (08:36)
[2023-05-29] MEDS: DOCUSATE SODIUM 100MG CAPSULE PO SCH ×2 (08:36→20:20)
[2023-05-29] MEDS: ASPIRIN 81MG ENTERIC TABLET PO SCH (08:36)
[2023-05-29] MEDS: APIXABAN 5 MG TAB (ELIQUIS) PO SCH ×2 (08:36→20:20)
[2023-05-29] MEDS: TAMSULOSIN 0.4 MG CAP PO SCH (08:36)
[2023-05-29] MEDS ORDERED: AMINO AC/ELECTROLYTE/DEX/CALC 2,566 ML IV SCH (18:00)
[2023-05-30] VITALS: BP 94/61; TEMP 97.3; O2SAT 98
[2023-05-30] MEDS: CIPROFLOXACIN 400 MG in IV 1 EA IV SCH (00:32)
[2023-05-30] MEDS: metroNIDAZOLE 500 MG in IV 1 EA IV SCH (01:48)
[2023-05-30 04:30] VITALS: BP 100/60; TEMP 97.9; O2SAT 97
[2023-05-30] MEDS: SODIUM CHLORIDE 0.9% INJ 10 ML SYR IV SCH ×2 (05:40→17:17)
[2023-05-30] MEDS: MORPHINE 2 MG/ML 1ML VIAL IV PRN ×4 (05:49→22:04)
[2023-05-30 06:02] LABS: HEMATOCRIT 29.9 % (42.0-52.0); HEMOGLOBIN 9.7 g/dl (13.5-17.5); MEAN CORPUSCULAR HEMOGLOBIN 31.9 pg (27.0-33.0); MEAN CORPUSCULAR HGB CONC 32.4 g/dl (32.0-36.5); MEAN CORPUSCULAR VOLUME 98.4 fl (80.0-96.0); PLATELET COUNT, AUTOMATED 846 10^3/uL (150-450); RED BLOOD COUNT 3.04 10^6/uL (4.30-6.10); WHITE BLOOD COUNT 14.9 10^3/uL (4.0-10.0)
[2023-05-30 06:28] LABS: BLOOD UREA NITROGEN 16 MG/DL (9-23); CALCIUM LEVEL 8.6 MG/DL (8.3-10.6); CARBON DIOXIDE LEVEL 31 MMOL/L (20-31); CHLORIDE LEVEL 103 MMOL/L (98-107); CREATININE FOR GFR 0.58 MG/DL (0.70-1.30); GLOMERULAR FILTRATION RATE > 60.0 (>49); GLUCOSE, FASTING 98 MG/DL (74-106); POTASSIUM SERUM 3.9 MMOL/L (3.5-5.1); SODIUM LEVEL 140 MMOL/L (136-145)
[2023-05-30 07:33] VITALS: BP 102/58; TEMP 97.5; O2SAT 97
[2023-05-30] MEDS: ASPIRIN 81MG ENTERIC TABLET PO SCH (08:07)
[2023-05-30] MEDS: PANTOPRAZOLE 40MG VIAL IV SCH (08:07)
[2023-05-30] MEDS: TAMSULOSIN 0.4 MG CAP PO SCH (08:07)
[2023-05-30] MEDS: MIDODRINE 5 MG TAB PO SCH ×3 (08:08→15:42)
[2023-05-30] MEDS: APIXABAN 5 MG TAB (ELIQUIS) PO SCH ×2 (08:08→20:21)
[2023-05-30] MEDS: DOCUSATE SODIUM 100MG CAPSULE PO SCH ×2 (08:08→20:21)
[2023-05-30] MEDS: ADVAIR HFA 115/21MCG INHALER INH SCH ×2 (08:10→20:14)
[2023-05-30 11:46] VITALS: BP 105/56; TEMP 98.1; O2SAT 97
[2023-05-30 15:41] VITALS: BP 100/58; TEMP 97.3; O2SAT 98
[2023-05-30] MEDS: LACTOBACILLUS ACIDOPHILUS CAP (BACID) PO SCH (17:16)
[2023-05-30] MEDS: INSULIN LISPRO (NovoLOG) PER UNIT SC SCH (17:16)
[2023-05-30] MEDS ORDERED: MULTIVITAMIN -ADULT INJECTION 10 ML, ZINC/COPPER/MANGANESE/SELENIUM 1 ML in AMINO AC/EL... IV SCH (18:00)
[2023-05-30 20:23] VITALS: BP 96/57; TEMP 98.2; O2SAT 97
[2023-05-31] MEDS: ACETAMINOPHEN TAB 650MG DOSE (2X325MG) PO PRN (00:39)
[2023-05-31 04:00] VITALS: BP 88/50; TEMP 97.7; O2SAT 98
[2023-05-31] MEDS ORDERED: MIRALAX *UNIT DOSE* 17GM PACKET PO ONE (04:15)
[2023-05-31] MEDS ORDERED: NS 500 ML IV ONE (04:25)
[2023-05-31] MEDS: MORPHINE 2 MG/ML 1ML VIAL IV PRN ×3 (04:39→20:10)
[2023-05-31] MEDS: SODIUM CHLORIDE 0.9% INJ 10 ML SYR IV SCH ×2 (05:24→18:22)
[2023-05-31 05:25] VITALS: BP 102/58
[2023-05-31] MEDS: INSULIN LISPRO (NovoLOG) PER UNIT SC SCH ×3 (05:35→12:55)
[2023-05-31 07:00] LABS: BASO # 0.2 10^3/uL (0.0-0.2); BASO % 1.2 % (0.0-1.0); EOS % 7.1 % (0.0-3.0); HEMATOCRIT 30.2 % (42.0-52.0); HEMOGLOBIN 9.5 g/dl (13.5-17.5); LYMPH # 3.1 10^3/uL (1.5-5.0); LYMPH % 22.1 % (24.0-44.0); MEAN CORPUSCULAR HEMOGLOBIN 31.3 pg (27.0-33.0); MEAN CORPUSCULAR HGB CONC 31.5 g/dl (32.0-36.5); MEAN CORPUSCULAR VOLUME 99.3 fl (80.0-96.0); MONO # 1.5 10^3/uL (0.0-0.8); MONO % 10.3 % (2.0-8.0); NEUTROPHILS # 8.3 10^3/uL (1.5-8.5); NEUTROPHILS % 58.2 % (36.0-66.0); PLATELET COUNT, AUTOMATED 774 10^3/uL (150-450); RED BLOOD COUNT 3.04 10^6/uL (4.30-6.10); WHITE BLOOD COUNT 14.2 10^3/uL (4.0-10.0)
[2023-05-31 07:28] LABS: BLOOD UREA NITROGEN 15 MG/DL (9-23); CALCIUM LEVEL 8.4 MG/DL (8.3-10.6); CARBON DIOXIDE LEVEL 30 MMOL/L (20-31); CHLORIDE LEVEL 106 MMOL/L (98-107); CREATININE FOR GFR 0.52 MG/DL (0.70-1.30); GLOMERULAR FILTRATION RATE > 60.0 (>49); GLUCOSE, FASTING 94 MG/DL (74-106); POTASSIUM SERUM 4.6 MMOL/L (3.5-5.1); SODIUM LEVEL 141 MMOL/L (136-145)
[2023-05-31 07:30] VITALS: BP 90/57; TEMP 97.7; O2SAT 98
[2023-05-31] MEDS: ADVAIR HFA 115/21MCG INHALER INH SCH ×2 (07:43→19:37)
[2023-05-31] MEDS: PANTOPRAZOLE 40MG VIAL IV SCH (09:25)
[2023-05-31] MEDS: LACTOBACILLUS ACIDOPHILUS CAP (BACID) PO SCH ×3 (09:26→18:22)
[2023-05-31] MEDS: APIXABAN 5 MG TAB (ELIQUIS) PO SCH ×2 (09:26→20:11)
[2023-05-31] MEDS: MIDODRINE 5 MG TAB PO SCH ×3 (09:26→18:22)
[2023-05-31] MEDS: SENNA 8.6 MG TAB (SENOKOT) PO SCH ×2 (09:26→20:11)
[2023-05-31] MEDS: BISACODYL 10MG SUPP PR SCH (09:26)
[2023-05-31] MEDS: ASPIRIN 81MG ENTERIC TABLET PO SCH (09:26)
[2023-05-31] MEDS: TAMSULOSIN 0.4 MG CAP PO SCH (09:26)
[2023-05-31] MEDS: DOCUSATE SODIUM 100MG CAPSULE PO SCH ×2 (09:26→20:11)
[2023-05-31 15:30] VITALS: BP 92/54; TEMP 97.1; O2SAT 97
[2023-05-31] MEDS ORDERED: AMINO AC/ELECTROLYTE/DEX/CALC 2,566 ML IV SCH (18:00)
[2023-05-31 20:00] VITALS: BP 106/56; TEMP 98.2; O2SAT 99
[2023-05-31] MEDS: RAMELTEON 8 MG TAB (ROZEREM) PO PRN (20:11)
[2023-05-31 22:00] VITALS: BP 102/60; TEMP 98; O2SAT 99
[2023-06-01] MEDS: MORPHINE 2 MG/ML 1ML VIAL IV PRN ×6 (02:50→22:17)
[2023-06-01] MEDS: ACETAMINOPHEN TAB 650MG DOSE (2X325MG) PO PRN ×2 (05:29→11:52)
[2023-06-01] MEDS: SODIUM CHLORIDE 0.9% INJ 10 ML SYR IV SCH ×2 (05:31→17:19)
[2023-06-01 06:00] VITALS: BP 105/68; TEMP 97.6; O2SAT 99
[2023-06-01 08:00] VITALS: BP 100/60; TEMP 97.9; O2SAT 99
[2023-06-01] MEDS: ASPIRIN 81MG ENTERIC TABLET PO SCH (08:28)
[2023-06-01] MEDS: DOCUSATE SODIUM 100MG CAPSULE PO SCH ×2 (08:28→21:28)
[2023-06-01] MEDS: LACTOBACILLUS ACIDOPHILUS CAP (BACID) PO SCH ×3 (08:28→17:19)
[2023-06-01] MEDS: TAMSULOSIN 0.4 MG CAP PO SCH (08:28)
[2023-06-01] MEDS: PANTOPRAZOLE 40MG VIAL IV SCH (08:28)
[2023-06-01] MEDS: BISACODYL 10MG SUPP PR SCH (08:29)
[2023-06-01] MEDS: SENNA 8.6 MG TAB (SENOKOT) PO SCH ×2 (08:29→21:28)
[2023-06-01] MEDS: MIDODRINE 5 MG TAB PO SCH ×3 (08:29→15:25)
[2023-06-01] MEDS: APIXABAN 5 MG TAB (ELIQUIS) PO SCH ×2 (08:29→21:28)
[2023-06-01] MEDS: ADVAIR HFA 115/21MCG INHALER INH SCH ×2 (08:39→20:30)
[2023-06-01 15:41] VITALS: BP 90/57; TEMP 97.4; O2SAT 98
[2023-06-01] MEDS ORDERED: MULTIVITAMIN -ADULT INJECTION 10 ML, ZINC/COPPER/MANGANESE/SELENIUM 1 ML in AMINO AC/EL... IV SCH (18:00)
[2023-06-01 18:18] VITALS: BP 92/55; TEMP 97.7; O2SAT 97
[2023-06-01 21:15] VITALS: BP 91/55; TEMP 98.1; O2SAT 98
[2023-06-01] MEDS: RAMELTEON 8 MG TAB (ROZEREM) PO PRN (21:27)
[2023-06-01 21:43] VITALS: BP 92/52
[2023-06-02] VITALS (8 sets, daily range): BP systolic 90–110; BP diastolic 50–72; TEMP 97.3–98.8; O2SAT 96–98
[2023-06-02] MEDS: MORPHINE 2 MG/ML 1ML VIAL IV PRN ×4 (01:28→20:56)
[2023-06-02] MEDS: SODIUM CHLORIDE 0.9% INJ 10 ML SYR IV SCH ×2 (05:24→17:49)
[2023-06-02 06:11] LABS: HEMATOCRIT 31.1 % (42.0-52.0); HEMOGLOBIN 9.9 g/dl (13.5-17.5); MEAN CORPUSCULAR HEMOGLOBIN 31.2 pg (27.0-33.0); MEAN CORPUSCULAR HGB CONC 31.8 g/dl (32.0-36.5); MEAN CORPUSCULAR VOLUME 98.1 fl (80.0-96.0); PLATELET COUNT, AUTOMATED 739 10^3/uL (150-450); RED BLOOD COUNT 3.17 10^6/uL (4.30-6.10); WHITE BLOOD COUNT 15.1 10^3/uL (4.0-10.0)
[2023-06-02 06:27] LABS: BLOOD UREA NITROGEN 16 MG/DL (9-23); CALCIUM LEVEL 8.6 MG/DL (8.3-10.6); CARBON DIOXIDE LEVEL 30 MMOL/L (20-31); CHLORIDE LEVEL 103 MMOL/L (98-107); CREATININE FOR GFR 0.53 MG/DL (0.70-1.30); GLOMERULAR FILTRATION RATE > 60.0 (>49); GLUCOSE, FASTING 96 MG/DL (74-106); POTASSIUM SERUM 4.4 MMOL/L (3.5-5.1); SODIUM LEVEL 139 MMOL/L (136-145)
[2023-06-02] MEDS: ADVAIR HFA 115/21MCG INHALER INH SCH ×2 (08:08→19:15)
[2023-06-02] MEDS: LACTOBACILLUS ACIDOPHILUS CAP (BACID) PO SCH ×3 (08:13→17:48)
[2023-06-02] MEDS: APIXABAN 5 MG TAB (ELIQUIS) PO SCH ×2 (08:14→20:56)
[2023-06-02] MEDS: ASPIRIN 81MG ENTERIC TABLET PO SCH (08:14)
[2023-06-02] MEDS: TAMSULOSIN 0.4 MG CAP PO SCH (08:14)
[2023-06-02] MEDS: DOCUSATE SODIUM 100MG CAPSULE PO SCH ×2 (08:14→20:56)
[2023-06-02] MEDS: MIDODRINE 5 MG TAB PO SCH ×3 (08:14→16:01)
[2023-06-02] MEDS: PANTOPRAZOLE 40MG VIAL IV SCH (08:14)
[2023-06-02] MEDS: SENNA 8.6 MG TAB (SENOKOT) PO SCH ×2 (08:14→20:56)
[2023-06-02] MEDS: BISACODYL 10MG SUPP PR SCH (08:15)
[2023-06-02] MEDS: ACETAMINOPHEN TAB 650MG DOSE (2X325MG) PO PRN (10:46)
[2023-06-02] MEDS ORDERED: AMINO AC/ELECTROLYTE/DEX/CALC 2,566 ML IV SCH (18:00)
[2023-06-02] MEDS: RAMELTEON 8 MG TAB (ROZEREM) PO PRN (21:01)
[2023-06-03] MEDS: MORPHINE 2 MG/ML 1ML VIAL IV PRN ×5 (01:30→20:41)
[2023-06-03] MEDS: SODIUM CHLORIDE 0.9% INJ 10 ML SYR IV SCH ×2 (05:09→17:58)
[2023-06-03] MEDS: ACETAMINOPHEN TAB 650MG DOSE (2X325MG) PO PRN (05:09)
[2023-06-03 05:10] VITALS: BP 110/66; TEMP 97.2; O2SAT 97
[2023-06-03] MEDS: ADVAIR HFA 115/21MCG INHALER INH SCH ×2 (07:24→19:15)
[2023-06-03] MEDS: PANTOPRAZOLE 40MG VIAL IV SCH (08:53)
[2023-06-03] MEDS: SENNA 8.6 MG TAB (SENOKOT) PO SCH ×2 (08:56→20:10)
[2023-06-03] MEDS: LACTOBACILLUS ACIDOPHILUS CAP (BACID) PO SCH ×3 (08:56→17:58)
[2023-06-03] MEDS: ASPIRIN 81MG ENTERIC TABLET PO SCH (08:56)
[2023-06-03] MEDS: DOCUSATE SODIUM 100MG CAPSULE PO SCH ×2 (08:56→20:10)
[2023-06-03] MEDS: APIXABAN 5 MG TAB (ELIQUIS) PO SCH ×2 (08:56→20:11)
[2023-06-03] MEDS: BISACODYL 10MG SUPP PR SCH (08:56)
[2023-06-03] MEDS: TAMSULOSIN 0.4 MG CAP PO SCH (08:56)
[2023-06-03] MEDS: MIDODRINE 5 MG TAB PO SCH ×3 (08:56→16:28)
[2023-06-03 13:45] VITALS: BP 105/67; TEMP 97.9; O2SAT 98
[2023-06-03] MEDS ORDERED: AMINO AC/ELECTROLYTE/DEX/CALC 2,566 ML IV SCH (18:00)
[2023-06-03] MEDS: RAMELTEON 8 MG TAB (ROZEREM) PO PRN (20:10)
[2023-06-03 22:00] VITALS: BP 99/67; TEMP 97.9; O2SAT 98
[2023-06-04] MEDS: MORPHINE 2 MG/ML 1ML VIAL IV PRN ×4 (01:29→19:56)
[2023-06-04] MEDS ORDERED: ISOVUE-370 76% 100ML VIAL As Ordered ONE (02:51)
[2023-06-04] MEDS: SODIUM CHLORIDE 0.9% INJ 10 ML SYR IV SCH ×2 (05:19→17:05)
[2023-06-04 06:00] VITALS: BP 95/64; TEMP 97.4; O2SAT 97
[2023-06-04] MEDS: ACETAMINOPHEN TAB 650MG DOSE (2X325MG) PO PRN (06:38)
[2023-06-04] MEDS: ADVAIR HFA 115/21MCG INHALER INH SCH ×2 (07:51→20:08)
[2023-06-04] MEDS: PANTOPRAZOLE 40MG VIAL IV SCH (08:21)
[2023-06-04] MEDS: SODIUM CHLORIDE 0.9% INJ 10 ML SYR IV PRN (08:21)
[2023-06-04] MEDS: LACTOBACILLUS ACIDOPHILUS CAP (BACID) PO SCH ×3 (08:25→17:06)
[2023-06-04] MEDS: SENNA 8.6 MG TAB (SENOKOT) PO SCH ×2 (08:26→19:54)
[2023-06-04] MEDS: APIXABAN 5 MG TAB (ELIQUIS) PO SCH ×2 (08:26→19:54)
[2023-06-04] MEDS: MIDODRINE 5 MG TAB PO SCH ×3 (08:26→15:51)
[2023-06-04] MEDS: TAMSULOSIN 0.4 MG CAP PO SCH (08:26)
[2023-06-04] MEDS: DOCUSATE SODIUM 100MG CAPSULE PO SCH ×2 (08:26→19:54)
[2023-06-04] MEDS: ASPIRIN 81MG ENTERIC TABLET PO SCH (08:26)
[2023-06-04] MEDS: BISACODYL 10MG SUPP PR SCH (08:26)
[2023-06-04] MEDS: MOM 30ML SUSPENSION UDC PO SCH (12:15)
[2023-06-04 14:00] VITALS: BP 102/65; TEMP 97.7; O2SAT 98
[2023-06-04] MEDS ORDERED: MULTIVITAMIN -ADULT INJECTION 10 ML, ZINC/COPPER/MANGANESE/SELENIUM 1 ML in AMINO AC/EL... IV SCH (18:00)
[2023-06-04 22:00] VITALS: BP 103/66; TEMP 97.7; O2SAT 97
[2023-06-04] MEDS: RAMELTEON 8 MG TAB (ROZEREM) PO PRN (22:40)
[2023-06-05] VITALS (8 sets, daily range): BP systolic 92–106; BP diastolic 57–78; TEMP 97–98.2; O2SAT 96–99
[2023-06-05] MEDS: MORPHINE 2 MG/ML 1ML VIAL IV PRN ×2 (04:10→09:27)
[2023-06-05 04:58] LABS: HEMOGLOBIN 9.4 g/dl (13.5-17.5); MEAN CORPUSCULAR HEMOGLOBIN 31.2 pg (27.0-33.0); MEAN CORPUSCULAR HGB CONC 31.3 g/dl (32.0-36.5); MEAN CORPUSCULAR VOLUME 99.7 fl (80.0-96.0); PLATELET COUNT, AUTOMATED 617 10^3/uL (150-450); RED BLOOD COUNT 3.01 10^6/uL (4.30-6.10); WHITE BLOOD COUNT 14.8 10^3/uL (4.0-10.0)
[2023-06-05 05:26] LABS: ALBUMIN 2.7 G/DL (3.2-5.2); ALKALINE PHOSPHATASE 127 U/L (46-116); ALT/SGPT 27 U/L (7.0-40); AST/SGOT 17 U/L (<34); BILIRUBIN,TOTAL 0.2 MG/DL (0.3-1.2); BLOOD UREA NITROGEN 15 MG/DL (9-23); CALCIUM LEVEL 8.6 MG/DL (8.3-10.6); CARBON DIOXIDE LEVEL 30 MMOL/L (20-31); CHLORIDE LEVEL 104 MMOL/L (98-107); CREATININE FOR GFR 0.53 MG/DL (0.70-1.30); GLOMERULAR FILTRATION RATE > 60.0 (>49); GLUCOSE, FASTING 98 MG/DL (74-106); POTASSIUM SERUM 4.3 MMOL/L (3.5-5.1); SODIUM LEVEL 139 MMOL/L (136-145)
[2023-06-05] MEDS: SODIUM CHLORIDE 0.9% INJ 10 ML SYR IV SCH ×2 (05:28→18:10)
[2023-06-05] MEDS: ADVAIR HFA 115/21MCG INHALER INH SCH ×2 (08:23→19:19)
[2023-06-05] MEDS: ASPIRIN 81MG ENTERIC TABLET PO SCH (09:13)
[2023-06-05] MEDS: TAMSULOSIN 0.4 MG CAP PO SCH (09:13)
[2023-06-05] MEDS: PANTOPRAZOLE 40MG VIAL IV SCH (09:13)
[2023-06-05] MEDS: MOM 30ML SUSPENSION UDC PO SCH (09:13)
[2023-06-05] MEDS: DOCUSATE SODIUM 100MG CAPSULE PO SCH ×2 (09:13→22:39)
[2023-06-05] MEDS: LACTOBACILLUS ACIDOPHILUS CAP (BACID) PO SCH ×3 (09:14→18:08)
[2023-06-05] MEDS: BISACODYL 10MG SUPP PR SCH (09:14)
[2023-06-05] MEDS: MIDODRINE 5 MG TAB PO SCH ×3 (09:14→17:15)
[2023-06-05] MEDS: SENNA 8.6 MG TAB (SENOKOT) PO SCH ×2 (09:14→22:39)
[2023-06-05] MEDS: APIXABAN 5 MG TAB (ELIQUIS) PO SCH ×2 (09:15→22:39)
[2023-06-05] MEDS: SODIUM CHLORIDE 0.9% INJ 10 ML SYR IV PRN (09:17)
[2023-06-05] MEDS: LACTULOSE 20GM/30ML SYRUP UDC PO SCH (11:35)
[2023-06-05] MEDS: PERCOCET 5MG/325MG TAB PO PRN ×3 (11:59→22:41)
[2023-06-05] MEDS ORDERED: AMINO AC/ELECTROLYTE/DEX/CALC 2,566 ML IV SCH (18:00)
[2023-06-05] MEDS ORDERED: KETOROLAC 30 MG/ML 1ML VIAL IV ONE (22:30)
[2023-06-06] VITALS (7 sets, daily range): BP systolic 94–108; BP diastolic 59–66; TEMP 97–98.8; O2SAT 95–96
[2023-06-06] MEDS: SODIUM CHLORIDE 0.9% INJ 10 ML SYR IV SCH ×2 (06:35→18:14)
[2023-06-06] MEDS: PERCOCET 5MG/325MG TAB PO PRN ×3 (06:36→21:45)
[2023-06-06] MEDS: ADVAIR HFA 115/21MCG INHALER INH SCH ×2 (07:23→19:46)
[2023-06-06] MEDS: MOM 30ML SUSPENSION UDC PO SCH (08:40)
[2023-06-06] MEDS: ASPIRIN 81MG ENTERIC TABLET PO SCH (08:40)
[2023-06-06] MEDS: LACTULOSE 20GM/30ML SYRUP UDC PO SCH (08:40)
[2023-06-06] MEDS: PANTOPRAZOLE 40MG VIAL IV SCH (08:40)
[2023-06-06] MEDS: LACTOBACILLUS ACIDOPHILUS CAP (BACID) PO SCH ×3 (08:41→18:14)
[2023-06-06] MEDS: MIDODRINE 5 MG TAB PO SCH ×3 (08:41→18:14)
[2023-06-06] MEDS: SENNA 8.6 MG TAB (SENOKOT) PO SCH ×2 (08:41→21:44)
[2023-06-06] MEDS: APIXABAN 5 MG TAB (ELIQUIS) PO SCH ×2 (08:41→21:44)
[2023-06-06] MEDS: TAMSULOSIN 0.4 MG CAP PO SCH (08:41)
[2023-06-06] MEDS: DOCUSATE SODIUM 100MG CAPSULE PO SCH ×2 (08:41→21:44)
[2023-06-06] MEDS: BISACODYL 10MG SUPP PR SCH (08:42)
[2023-06-06] MEDS ORDERED: MULTIVITAMIN -ADULT INJECTION 10 ML, ZINC/COPPER/MANGANESE/SELENIUM 1 ML in AMINO AC/EL... IV SCH (18:00)
[2023-06-06] MEDS: RAMELTEON 8 MG TAB (ROZEREM) PO PRN (21:44)
[2023-06-07 01:39] VITALS: BP 94/59; TEMP 98.4; O2SAT 96
[2023-06-07] MEDS: PERCOCET 5MG/325MG TAB PO PRN ×4 (02:16→22:02)
[2023-06-07] MEDS: ACETAMINOPHEN TAB 650MG DOSE (2X325MG) PO PRN (03:32)
[2023-06-07 05:40] VITALS: BP 92/59; TEMP 97.9; O2SAT 97
[2023-06-07] MEDS: SODIUM CHLORIDE 0.9% INJ 10 ML SYR IV SCH ×2 (06:39→18:20)
[2023-06-07] MEDS: SODIUM CHLORIDE 0.9% INJ 10 ML SYR IV PRN (06:40)
[2023-06-07 06:52] LABS: BASO # 0.2 10^3/uL (0.0-0.2); BASO % 1.2 % (0.0-1.0); EOS # 1.1 10^3/uL (0.0-0.5); EOS % 8.6 % (0.0-3.0); HEMATOCRIT 30.1 % (42.0-52.0); HEMOGLOBIN 9.7 g/dl (13.5-17.5); MEAN CORPUSCULAR HEMOGLOBIN 31.8 pg (27.0-33.0); MEAN CORPUSCULAR HGB CONC 32.2 g/dl (32.0-36.5); MEAN CORPUSCULAR VOLUME 98.7 fl (80.0-96.0); MONO % 12.8 % (2.0-8.0); NEUTROPHILS # 6.9 10^3/uL (1.5-8.5); NEUTROPHILS % 53.5 % (36.0-66.0); PLATELET COUNT, AUTOMATED 571 10^3/uL (150-450); RED BLOOD COUNT 3.05 10^6/uL (4.30-6.10); WHITE BLOOD COUNT 12.9 10^3/uL (4.0-10.0)
[2023-06-07] MEDS: ADVAIR HFA 115/21MCG INHALER INH SCH ×2 (07:13→19:24)
[2023-06-07 07:38] LABS: MONO # 1.7 10^3/uL (0.0-0.8)
[2023-06-07 08:30] VITALS: BP 112/64; TEMP 97.7; O2SAT 96
[2023-06-07] MEDS: LACTULOSE 20GM/30ML SYRUP UDC PO SCH (10:02)
[2023-06-07] MEDS: PANTOPRAZOLE 40MG VIAL IV SCH (10:02)
[2023-06-07] MEDS: LACTOBACILLUS ACIDOPHILUS CAP (BACID) PO SCH ×3 (10:02→18:20)
[2023-06-07] MEDS: MOM 30ML SUSPENSION UDC PO SCH (10:02)
[2023-06-07] MEDS: BISACODYL 10MG SUPP PR SCH ×2 (10:02→10:05)
[2023-06-07] MEDS: MIDODRINE 5 MG TAB PO SCH ×3 (10:03→16:14)
[2023-06-07] MEDS: SENNA 8.6 MG TAB (SENOKOT) PO SCH ×2 (10:03→22:01)
[2023-06-07] MEDS: APIXABAN 5 MG TAB (ELIQUIS) PO SCH ×2 (10:03→22:01)
[2023-06-07] MEDS: ASPIRIN 81MG ENTERIC TABLET PO SCH (10:03)
[2023-06-07] MEDS: DOCUSATE SODIUM 100MG CAPSULE PO SCH ×2 (10:03→22:01)
[2023-06-07] MEDS: TAMSULOSIN 0.4 MG CAP PO SCH (10:03)
[2023-06-07 14:13] VITALS: BP 106/66; TEMP 97.2; O2SAT 95
[2023-06-07 21:27] VITALS: BP 93/59; TEMP 98.6; O2SAT 96
[2023-06-07 21:28] VITALS: BP 102/52
[2023-06-07] MEDS: RAMELTEON 8 MG TAB (ROZEREM) PO PRN (22:01)
[2023-06-08 02:00] VITALS: BP 100/60; TEMP 98.1; O2SAT 94
[2023-06-08] MEDS: PERCOCET 5MG/325MG TAB PO PRN ×4 (03:19→22:21)
[2023-06-08] MEDS: SODIUM CHLORIDE 0.9% INJ 10 ML SYR IV SCH (05:50)
[2023-06-08] MEDS: SODIUM CHLORIDE 0.9% INJ 10 ML SYR IV PRN (05:50)
[2023-06-08 06:23] VITALS: BP 102/60; TEMP 97.5; O2SAT 95
[2023-06-08] MEDS: ADVAIR HFA 115/21MCG INHALER INH SCH ×2 (07:32→19:36)
[2023-06-08] MEDS: LACTULOSE 20GM/30ML SYRUP UDC PO SCH (08:51)
[2023-06-08] MEDS: PANTOPRAZOLE 40MG VIAL IV SCH (08:51)
[2023-06-08] MEDS: MOM 30ML SUSPENSION UDC PO SCH (08:52)
[2023-06-08] MEDS: TAMSULOSIN 0.4 MG CAP PO SCH (08:53)
[2023-06-08] MEDS: ASPIRIN 81MG ENTERIC TABLET PO SCH (08:53)
[2023-06-08] MEDS: MIDODRINE 5 MG TAB PO SCH ×3 (08:53→17:13)
[2023-06-08] MEDS: LACTOBACILLUS ACIDOPHILUS CAP (BACID) PO SCH ×3 (08:53→17:14)
[2023-06-08] MEDS: SENNA 8.6 MG TAB (SENOKOT) PO SCH ×2 (08:53→19:52)
[2023-06-08] MEDS: DOCUSATE SODIUM 100MG CAPSULE PO SCH ×2 (08:54→19:51)
[2023-06-08] MEDS: APIXABAN 5 MG TAB (ELIQUIS) PO SCH ×2 (08:54→19:51)
[2023-06-08] MEDS: BISACODYL 10MG SUPP PR SCH (08:54)
[2023-06-08 10:00] VITALS: BP 102/62; TEMP 97.7; O2SAT 95
[2023-06-08 12:50] VITALS: BP 102/62
[2023-06-08 14:00] VITALS: BP 106/65; TEMP 97.9; O2SAT 96
[2023-06-08 20:42] VITALS: BP 100/58; TEMP 97.9; O2SAT 95
[2023-06-08] MEDS: RAMELTEON 8 MG TAB (ROZEREM) PO PRN (22:23)
[2023-06-09] VITALS (8 sets, daily range): BP systolic 100–110; BP diastolic 58–80; TEMP 97.1–98.6; O2SAT 96–97
[2023-06-09] MEDS: PERCOCET 5MG/325MG TAB PO PRN ×3 (04:15→19:44)
[2023-06-09] MEDS: ADVAIR HFA 115/21MCG INHALER INH SCH ×2 (08:00→19:24)
[2023-06-09] MEDS: SENNA 8.6 MG TAB (SENOKOT) PO SCH ×2 (08:16→19:43)
[2023-06-09] MEDS: APIXABAN 5 MG TAB (ELIQUIS) PO SCH ×2 (08:17→19:44)
[2023-06-09] MEDS: TAMSULOSIN 0.4 MG CAP PO SCH (08:17)
[2023-06-09] MEDS: DOCUSATE SODIUM 100MG CAPSULE PO SCH ×2 (08:17→19:43)
[2023-06-09] MEDS: ASPIRIN 81MG ENTERIC TABLET PO SCH (08:17)
[2023-06-09] MEDS: LACTOBACILLUS ACIDOPHILUS CAP (BACID) PO SCH ×3 (08:17→17:17)
[2023-06-09] MEDS: PANTOPRAZOLE 40MG TAB (PROTONIX) PO SCH (08:17)
[2023-06-09] MEDS: MIDODRINE 5 MG TAB PO SCH ×3 (08:20→17:17)
[2023-06-09] MEDS: LACTULOSE 20GM/30ML SYRUP UDC PO SCH (08:20)
[2023-06-09] MEDS: MOM 30ML SUSPENSION UDC PO SCH (09:00)
[2023-06-09] MEDS: BISACODYL 10MG SUPP PR SCH (09:00)
[2023-06-09] MEDS: ACETAMINOPHEN TAB 650MG DOSE (2X325MG) PO PRN (10:28)
[2023-06-09] MEDS ORDERED: KETOROLAC 30 MG/ML 1ML VIAL IV ONE (11:40)
[2023-06-09] MEDS ORDERED: KETOROLAC 60MG 2ML VIAL IM ONE (12:00)
[2023-06-09] MEDS: CYCLOBENZAPRINE 5MG TABLET PO SCH ×2 (14:38→21:05)
[2023-06-10] MEDS: PERCOCET 5MG/325MG TAB PO PRN ×4 (02:14→21:59)
[2023-06-10] MEDS: RAMELTEON 8 MG TAB (ROZEREM) PO PRN ×2 (02:15→21:59)
[2023-06-10 05:13] VITALS: BP 100/70; TEMP 97.9; O2SAT 97
[2023-06-10] MEDS: CYCLOBENZAPRINE 5MG TABLET PO SCH (05:26)
[2023-06-10] MEDS: ADVAIR HFA 115/21MCG INHALER INH SCH ×2 (07:25→20:04)
[2023-06-10] MEDS: BISACODYL 10MG SUPP PR SCH (09:00)
[2023-06-10] MEDS: MOM 30ML SUSPENSION UDC PO SCH (09:26)
[2023-06-10] MEDS: LACTULOSE 20GM/30ML SYRUP UDC PO SCH (09:26)
[2023-06-10] MEDS: TAMSULOSIN 0.4 MG CAP PO SCH (09:27)
[2023-06-10] MEDS: ASPIRIN 81MG ENTERIC TABLET PO SCH (09:27)
[2023-06-10] MEDS: LACTOBACILLUS ACIDOPHILUS CAP (BACID) PO SCH ×3 (09:28→16:34)
[2023-06-10] MEDS: DOCUSATE SODIUM 100MG CAPSULE PO SCH ×2 (09:28→20:11)
[2023-06-10] MEDS: SENNA 8.6 MG TAB (SENOKOT) PO SCH ×2 (09:28→20:12)
[2023-06-10] MEDS: PANTOPRAZOLE 40MG TAB (PROTONIX) PO SCH (09:28)
[2023-06-10] MEDS: APIXABAN 5 MG TAB (ELIQUIS) PO SCH ×2 (09:29→20:12)
[2023-06-10] MEDS: MIDODRINE 5 MG TAB PO SCH ×3 (09:29→16:11)
[2023-06-10 09:30] VITALS: BP 97/60
[2023-06-10 14:00] VITALS: BP 110/65; TEMP 97.3; O2SAT 96
[2023-06-10] MEDS ORDERED: CYCLOBENZAPRINE 5MG TABLET PO PRN (14:00)
[2023-06-10] MEDS: RIZATRIPTAN BENZOATE 10 MG TAB PO PRN (16:34)
[2023-06-10] MEDS: ACETAMINOPHEN TAB 650MG DOSE (2X325MG) PO PRN (20:12)
[2023-06-10 22:00] VITALS: BP 101/60; TEMP 98.1; O2SAT 97
[2023-06-11 06:12] VITALS: BP 92/62; TEMP 98.1; O2SAT 97
[2023-06-11] MEDS: PERCOCET 5MG/325MG TAB PO PRN ×3 (06:38→20:47)
[2023-06-11] MEDS: ADVAIR HFA 115/21MCG INHALER INH SCH ×2 (07:19→19:45)
[2023-06-11] MEDS: MOM 30ML SUSPENSION UDC PO SCH (08:41)
[2023-06-11] MEDS: LACTULOSE 20GM/30ML SYRUP UDC PO SCH (08:41)
[2023-06-11] MEDS: LACTOBACILLUS ACIDOPHILUS CAP (BACID) PO SCH ×3 (08:42→17:22)
[2023-06-11] MEDS: BISACODYL 10MG SUPP PR SCH (08:42)
[2023-06-11] MEDS: TAMSULOSIN 0.4 MG CAP PO SCH ×2 (08:42→20:37)
[2023-06-11] MEDS: MIDODRINE 5 MG TAB PO SCH ×3 (08:42→17:23)
[2023-06-11] MEDS: ASPIRIN 81MG ENTERIC TABLET PO SCH (08:42)
[2023-06-11] MEDS: APIXABAN 5 MG TAB (ELIQUIS) PO SCH ×2 (08:42→20:37)
[2023-06-11] MEDS: PANTOPRAZOLE 40MG TAB (PROTONIX) PO SCH (08:42)
[2023-06-11] MEDS: DOCUSATE SODIUM 100MG CAPSULE PO SCH ×2 (08:42→20:37)
[2023-06-11] MEDS: SENNA 8.6 MG TAB (SENOKOT) PO SCH ×2 (08:42→20:37)
[2023-06-11 14:00] VITALS: BP 100/67; TEMP 97.5; O2SAT 96
[2023-06-11 21:02] VITALS: BP 112/58; TEMP 98.6; O2SAT 96
[2023-06-11 23:05] VITALS: BP 112/72; TEMP 96.8; O2SAT 95
[2023-06-11] MEDS ORDERED: MECLIZINE 25 MG TABLET PO PRN (23:30)
[2023-06-12] MEDS: RAMELTEON 8 MG TAB (ROZEREM) PO PRN ×2 (01:26→20:43)
[2023-06-12] MEDS: PERCOCET 5MG/325MG TAB PO PRN ×4 (01:26→17:29)
[2023-06-12 06:02] VITALS: BP 100/72; TEMP 97.5; O2SAT 100
[2023-06-12] MEDS: ADVAIR HFA 115/21MCG INHALER INH SCH ×2 (07:22→20:48)
[2023-06-12] MEDS: DOCUSATE SODIUM 100MG CAPSULE PO SCH ×2 (08:43→20:43)
[2023-06-12] MEDS: APIXABAN 5 MG TAB (ELIQUIS) PO SCH (08:43)
[2023-06-12] MEDS: BISACODYL 10MG SUPP PR SCH (08:43)
[2023-06-12] MEDS: MIDODRINE 5 MG TAB PO SCH ×3 (08:43→17:28)
[2023-06-12] MEDS: TAMSULOSIN 0.4 MG CAP PO SCH ×2 (08:43→20:43)
[2023-06-12] MEDS: MOM 30ML SUSPENSION UDC PO SCH (08:43)
[2023-06-12] MEDS: LACTULOSE 20GM/30ML SYRUP UDC PO SCH (08:43)
[2023-06-12] MEDS: LACTOBACILLUS ACIDOPHILUS CAP (BACID) PO SCH ×3 (08:43→17:28)
[2023-06-12] MEDS: PANTOPRAZOLE 40MG TAB (PROTONIX) PO SCH (08:43)
[2023-06-12] MEDS: ASPIRIN 81MG ENTERIC TABLET PO SCH (08:43)
[2023-06-12] MEDS: SENNA 8.6 MG TAB (SENOKOT) PO SCH ×2 (08:43→20:43)
[2023-06-12] MEDS: RIZATRIPTAN BENZOATE 10 MG TAB PO PRN (10:13)
[2023-06-12 14:00] VITALS: BP 96/65; TEMP 97.7; O2SAT 98
[2023-06-12] MEDS: LR 1,000 ML IV SCH (17:29)
[2023-06-12 20:00] VITALS: BP 110/70; TEMP 98.2; O2SAT 97
[2023-06-12 21:00] VITALS: BP 138/56; TEMP 97.9; O2SAT 92
[2023-06-12 22:33] VITALS: BP 138/56; TEMP 97.9; O2SAT 92
[2023-06-13] VITALS (7 sets, daily range): BP systolic 92–112; BP diastolic 54–80; TEMP 97.5–98.6; O2SAT 92–97
[2023-06-13] MEDS: MORPHINE 2 MG/ML 1ML VIAL IV PRN ×2 (00:51→04:58)
[2023-06-13] MEDS: LR 1,000 ML IV SCH ×3 (02:58→21:18)
[2023-06-13 06:08] LABS: BASO # 0.1 10^3/uL (0.0-0.2); BASO % 1.1 % (0.0-1.0); EOS # 0.6 10^3/uL (0.0-0.5); HEMATOCRIT 30.9 % (42.0-52.0); LYMPH # 2.9 10^3/uL (1.5-5.0); LYMPH % 22.9 % (24.0-44.0); MEAN CORPUSCULAR HEMOGLOBIN 31.6 pg (27.0-33.0); MEAN CORPUSCULAR HGB CONC 32.4 g/dl (32.0-36.5); MEAN CORPUSCULAR VOLUME 97.8 fl (80.0-96.0); NEUTROPHILS # 7.3 10^3/uL (1.5-8.5); NEUTROPHILS % 57.4 % (36.0-66.0); PLATELET COUNT, AUTOMATED 525 10^3/uL (150-450); RED BLOOD COUNT 3.16 10^6/uL (4.30-6.10); WHITE BLOOD COUNT 12.7 10^3/uL (4.0-10.0)
[2023-06-13 06:16] LABS: MONO # 1.7 10^3/uL (0.0-0.8)
[2023-06-13 06:38] LABS: BLOOD UREA NITROGEN 18 MG/DL (9-23); CALCIUM LEVEL 9.1 MG/DL (8.3-10.6); CARBON DIOXIDE LEVEL 29 MMOL/L (20-31); CHLORIDE LEVEL 104 MMOL/L (98-107); CREATININE FOR GFR 0.57 MG/DL (0.70-1.30); GLOMERULAR FILTRATION RATE > 60.0 (>49); GLUCOSE, FASTING 82 MG/DL (74-106); MAGNESIUM LEVEL 1.9 MG/DL (1.8-2.4); POTASSIUM SERUM 4.4 MMOL/L (3.5-5.1); SODIUM LEVEL 142 MMOL/L (136-145)
[2023-06-13] MEDS: ADVAIR HFA 115/21MCG INHALER INH SCH ×2 (07:31→19:55)
[2023-06-13] MEDS: LACTOBACILLUS ACIDOPHILUS CAP (BACID) PO SCH ×3 (08:00→16:49)
[2023-06-13] MEDS: TAMSULOSIN 0.4 MG CAP PO SCH ×2 (08:46→21:16)
[2023-06-13] MEDS: MIDODRINE 5 MG TAB PO SCH ×3 (08:46→16:49)
[2023-06-13] MEDS: PERCOCET 5MG/325MG TAB PO PRN (08:47)
[2023-06-13] MEDS: MOM 30ML SUSPENSION UDC PO SCH (09:00)
[2023-06-13] MEDS: LACTULOSE 20GM/30ML SYRUP UDC PO SCH (09:00)
[2023-06-13] MEDS: DOCUSATE SODIUM 100MG CAPSULE PO SCH ×2 (09:00→21:17)
[2023-06-13] MEDS: SENNA 8.6 MG TAB (SENOKOT) PO SCH ×2 (09:00→21:16)
[2023-06-13] MEDS: PANTOPRAZOLE 40MG TAB (PROTONIX) PO SCH (09:00)
[2023-06-13] MEDS: BISACODYL 10MG SUPP PR SCH (09:00)
[2023-06-13] MEDS: FIORICET TAB PO PRN (11:32)
[2023-06-13] MEDS ORDERED: ceFAZolin 2 GM/D5W 50 ML IV BAG As Ordered ONE (17:53)
[2023-06-13] MEDS ORDERED: fentaNYL 100 MCG/2 ML INJECTION As Ordered ONE ×2 (18:09→18:27)
[2023-06-13] MEDS ORDERED: ROCURONIUM BROMIDE 50MG/5ML VIAL As Ordered ONE (18:09)
[2023-06-13] MEDS ORDERED: propofoL 200 MG/20 ML VIAL As Ordered ONE (18:09)
[2023-06-13] MEDS ORDERED: SUGAMMADEX SODIUM 500 MG/5 ML VIAL (BRIDION) As Ordered ONE (18:09)
[2023-06-13] MEDS ORDERED: ONDANSETRON 4MG 2ML VIAL As Ordered ONE (18:09)
[2023-06-13] MEDS ORDERED: LIDOCAINE 2% 100MG/5ML SDV (FOR ANES.) As Ordered ONE (18:09)
[2023-06-13] MEDS ORDERED: MIDAZOLAM INJ 2MG/2ML VIAL As Ordered ONE (18:09)
[2023-06-13] MEDS ORDERED: PHENYLephrine 500MCG 5ML (100MCG/ML) SYRINGE As Ordered ONE (18:10)
[2023-06-13] MEDS ORDERED: ACETAMINOPHEN 1000MG 100ML IV BAG As Ordered ONE (18:14)
[2023-06-13] MEDS ORDERED: KETOROLAC 60MG 2ML VIAL As Ordered ONE (18:26)
[2023-06-13] MEDS ORDERED: LR 1,000 ML IV SCH (18:40)
[2023-06-13] MEDS ORDERED: fentaNYL 100 MCG/2 ML INJECTION IV PRN (18:40)
[2023-06-13] MEDS ORDERED: ONDANSETRON 4MG 2ML VIAL IV PRN (18:40)
[2023-06-13] MEDS: HYDROMORPHONE HCL 0.5 MG/ 0.5 ML SYRINGE IV PRN ×2 (19:11→19:16)
[2023-06-13] MEDS: oxyCODONE 5MG TAB PO PRN ×2 (19:12→19:48)
[2023-06-13] MEDS: APIXABAN 5 MG TAB (ELIQUIS) PO SCH (21:27)
[2023-06-14] VITALS (8 sets, daily range): BP systolic 90–106; BP diastolic 52–62; TEMP 97.7–98.1; O2SAT 93–97
[2023-06-14] MEDS: ceFAZolin SOD 2 GM in IV 1 EA IV SCH ×2 (02:03→10:53)
[2023-06-14] MEDS: PERCOCET 5MG/325MG TAB PO PRN ×5 (02:13→23:06)
[2023-06-14] MEDS: RAMELTEON 8 MG TAB (ROZEREM) PO PRN (02:13)
[2023-06-14] MEDS: LR 1,000 ML IV SCH ×2 (06:49→19:52)
[2023-06-14 07:34] LABS: BASO # 0.1 10^3/uL (0.0-0.2); BASO % 0.7 % (0.0-1.0); EOS # 0.2 10^3/uL (0.0-0.5); HEMATOCRIT 31.1 % (42.0-52.0); LYMPH # 2.7 10^3/uL (1.5-5.0); LYMPH % 17.8 % (24.0-44.0); MEAN CORPUSCULAR HEMOGLOBIN 31.3 pg (27.0-33.0); MEAN CORPUSCULAR HGB CONC 32.2 g/dl (32.0-36.5); MEAN CORPUSCULAR VOLUME 97.5 fl (80.0-96.0); MONO % 10.2 % (2.0-8.0); NEUTROPHILS # 10.4 10^3/uL (1.5-8.5); NEUTROPHILS % 69.8 % (36.0-66.0); PLATELET COUNT, AUTOMATED 548 10^3/uL (150-450); RED BLOOD COUNT 3.19 10^6/uL (4.30-6.10); WHITE BLOOD COUNT 14.9 10^3/uL (4.0-10.0)
[2023-06-14 07:54] LABS: BLOOD UREA NITROGEN 20 MG/DL (9-23); CALCIUM LEVEL 8.7 MG/DL (8.3-10.6); CARBON DIOXIDE LEVEL 28 MMOL/L (20-31); CHLORIDE LEVEL 104 MMOL/L (98-107); CREATININE FOR GFR 0.57 MG/DL (0.70-1.30); GLOMERULAR FILTRATION RATE > 60.0 (>49); GLUCOSE, FASTING 110 MG/DL (74-106); MAGNESIUM LEVEL 1.8 MG/DL (1.8-2.4); POTASSIUM SERUM 4.4 MMOL/L (3.5-5.1); SODIUM LEVEL 140 MMOL/L (136-145)
[2023-06-14] MEDS: ADVAIR HFA 115/21MCG INHALER INH SCH ×2 (07:54→19:25)
[2023-06-14 08:13] LABS: MONO # 1.5 10^3/uL (0.0-0.8)
[2023-06-14] MEDS: LACTOBACILLUS ACIDOPHILUS CAP (BACID) PO SCH ×3 (08:30→17:56)
[2023-06-14] MEDS: TAMSULOSIN 0.4 MG CAP PO SCH ×2 (08:30→19:52)
[2023-06-14] MEDS: MIDODRINE 5 MG TAB PO SCH ×3 (08:30→16:16)
[2023-06-14] MEDS: MOM 30ML SUSPENSION UDC PO SCH (08:31)
[2023-06-14] MEDS: LACTULOSE 20GM/30ML SYRUP UDC PO SCH (08:31)
[2023-06-14] MEDS: DOCUSATE SODIUM 100MG CAPSULE PO SCH ×2 (08:31→19:52)
[2023-06-14] MEDS: ASPIRIN 81MG ENTERIC TABLET PO SCH (08:31)
[2023-06-14] MEDS: SENNA 8.6 MG TAB (SENOKOT) PO SCH ×2 (08:31→19:52)
[2023-06-14] MEDS: APIXABAN 5 MG TAB (ELIQUIS) PO SCH ×2 (08:31→19:52)
[2023-06-14] MEDS: PANTOPRAZOLE 40MG TAB (PROTONIX) PO SCH (08:31)
[2023-06-14] MEDS: BISACODYL 10MG SUPP PR SCH (08:33)
[2023-06-14] MEDS: MORPHINE 2 MG/ML 1ML VIAL IV PRN (13:39)
[2023-06-15] VITALS: BP 104/70; TEMP 98.2; O2SAT 95
[2023-06-15] MEDS: PERCOCET 5MG/325MG TAB PO PRN ×3 (04:52→20:32)
[2023-06-15] MEDS: LR 1,000 ML IV SCH ×2 (04:53→19:47)
[2023-06-15 06:00] VITALS: BP 90/54; TEMP 98.6; O2SAT 93
[2023-06-15 06:49] LABS: BASO # 0.2 10^3/uL (0.0-0.2); BASO % 1.4 % (0.0-1.0); EOS # 0.6 10^3/uL (0.0-0.5); EOS % 5.8 % (0.0-3.0); HEMATOCRIT 30.5 % (42.0-52.0); HEMOGLOBIN 9.7 g/dl (13.5-17.5); LYMPH # 3.9 10^3/uL (1.5-5.0); LYMPH % 35.8 % (24.0-44.0); MEAN CORPUSCULAR HGB CONC 31.8 g/dl (32.0-36.5); MEAN CORPUSCULAR VOLUME 97.4 fl (80.0-96.0); MONO # 1.5 10^3/uL (0.0-0.8); MONO % 13.7 % (2.0-8.0); NEUTROPHILS # 4.7 10^3/uL (1.5-8.5); PLATELET COUNT, AUTOMATED 531 10^3/uL (150-450); RED BLOOD COUNT 3.13 10^6/uL (4.30-6.10)
[2023-06-15 07:21] LABS: BLOOD UREA NITROGEN 13 MG/DL (9-23); CALCIUM LEVEL 8.8 MG/DL (8.3-10.6); CARBON DIOXIDE LEVEL 29 MMOL/L (20-31); CHLORIDE LEVEL 106 MMOL/L (98-107); CREATININE FOR GFR 0.54 MG/DL (0.70-1.30); GLOMERULAR FILTRATION RATE > 60.0 (>49); GLUCOSE, FASTING 98 MG/DL (74-106); MAGNESIUM LEVEL 1.6 MG/DL (1.8-2.4); POTASSIUM SERUM 4.3 MMOL/L (3.5-5.1); SODIUM LEVEL 141 MMOL/L (136-145)
[2023-06-15] MEDS: ADVAIR HFA 115/21MCG INHALER INH SCH ×2 (07:39→20:11)
[2023-06-15 07:40] VITALS: O2SAT 95
[2023-06-15 08:00] VITALS: BP 108/52; TEMP 97.7; O2SAT 93
[2023-06-15] MEDS: LACTOBACILLUS ACIDOPHILUS CAP (BACID) PO SCH ×3 (08:42→17:41)
[2023-06-15] MEDS: PANTOPRAZOLE 40MG TAB (PROTONIX) PO SCH (08:42)
[2023-06-15] MEDS: MOM 30ML SUSPENSION UDC PO SCH (08:42)
[2023-06-15] MEDS: MIDODRINE 5 MG TAB PO SCH ×3 (08:42→17:41)
[2023-06-15] MEDS: TAMSULOSIN 0.4 MG CAP PO SCH ×2 (08:42→20:08)
[2023-06-15] MEDS: ASPIRIN 81MG ENTERIC TABLET PO SCH (08:42)
[2023-06-15] MEDS: SERTRALINE HCL 50 MG TAB PO SCH (08:42)
[2023-06-15] MEDS: SENNA 8.6 MG TAB (SENOKOT) PO SCH ×2 (08:42→20:09)
[2023-06-15] MEDS: LACTULOSE 20GM/30ML SYRUP UDC PO SCH (08:42)
[2023-06-15] MEDS: APIXABAN 5 MG TAB (ELIQUIS) PO SCH ×2 (08:42→20:08)
[2023-06-15] MEDS: DOCUSATE SODIUM 100MG CAPSULE PO SCH ×2 (08:42→20:08)
[2023-06-15] MEDS: BISACODYL 10MG SUPP PR SCH (08:43)
[2023-06-15 14:00] VITALS: BP 109/68; TEMP 98.1; O2SAT 94
[2023-06-15 20:34] VITALS: BP 106/68; TEMP 97.7; O2SAT 97
[2023-06-16] MEDS: PERCOCET 5MG/325MG TAB PO PRN ×5 (00:48→23:54)
[2023-06-16] MEDS: FIORICET TAB PO PRN (04:06)
[2023-06-16] MEDS: LR 1,000 ML IV SCH (05:28)
[2023-06-16 05:32] VITALS: BP 109/69; TEMP 97.7; O2SAT 98
[2023-06-16 06:42] LABS: BASO # 0.2 10^3/uL (0.0-0.2); BASO % 1.5 % (0.0-1.0); EOS # 0.7 10^3/uL (0.0-0.5); HEMATOCRIT 31.3 % (42.0-52.0); HEMOGLOBIN 10.1 g/dl (13.5-17.5); LYMPH # 3.4 10^3/uL (1.5-5.0); LYMPH % 31.4 % (24.0-44.0); MEAN CORPUSCULAR HEMOGLOBIN 31.5 pg (27.0-33.0); MEAN CORPUSCULAR HGB CONC 32.3 g/dl (32.0-36.5); MEAN CORPUSCULAR VOLUME 97.5 fl (80.0-96.0); MONO # 1.6 10^3/uL (0.0-0.8); MONO % 14.7 % (2.0-8.0); NEUTROPHILS # 4.9 10^3/uL (1.5-8.5); NEUTROPHILS % 45.8 % (36.0-66.0); PLATELET COUNT, AUTOMATED 531 10^3/uL (150-450); RED BLOOD COUNT 3.21 10^6/uL (4.30-6.10); WHITE BLOOD COUNT 10.8 10^3/uL (4.0-10.0)
[2023-06-16 07:15] LABS: BLOOD UREA NITROGEN 11 MG/DL (9-23); CARBON DIOXIDE LEVEL 29 MMOL/L (20-31); CHLORIDE LEVEL 106 MMOL/L (98-107); CREATININE FOR GFR 0.49 MG/DL (0.70-1.30); GLOMERULAR FILTRATION RATE > 60.0 (>49); GLUCOSE, FASTING 81 MG/DL (74-106); MAGNESIUM LEVEL 1.7 MG/DL (1.8-2.4); POTASSIUM SERUM 4.2 MMOL/L (3.5-5.1); SODIUM LEVEL 142 MMOL/L (136-145)
[2023-06-16] MEDS: ADVAIR HFA 115/21MCG INHALER INH SCH ×2 (07:16→20:00)
[2023-06-16] MEDS: MIDODRINE 5 MG TAB PO SCH ×3 (08:00→15:24)
[2023-06-16 08:12] VITALS: BP 123/72
[2023-06-16] MEDS: BISACODYL 10MG SUPP PR SCH (08:13)
[2023-06-16] MEDS: LACTULOSE 20GM/30ML SYRUP UDC PO SCH (08:13)
[2023-06-16] MEDS: MOM 30ML SUSPENSION UDC PO SCH (08:13)
[2023-06-16] MEDS: PANTOPRAZOLE 40MG TAB (PROTONIX) PO SCH (08:14)
[2023-06-16] MEDS: ASPIRIN 81MG ENTERIC TABLET PO SCH (08:14)
[2023-06-16] MEDS: LACTOBACILLUS ACIDOPHILUS CAP (BACID) PO SCH ×3 (08:14→17:01)
[2023-06-16] MEDS: SERTRALINE HCL 50 MG TAB PO SCH (08:14)
[2023-06-16] MEDS: TAMSULOSIN 0.4 MG CAP PO SCH ×2 (08:14→20:10)
[2023-06-16] MEDS: APIXABAN 5 MG TAB (ELIQUIS) PO SCH ×2 (08:15→20:11)
[2023-06-16] MEDS: SENNA 8.6 MG TAB (SENOKOT) PO SCH ×2 (08:15→20:11)
[2023-06-16] MEDS: DOCUSATE SODIUM 100MG CAPSULE PO SCH ×2 (08:15→20:11)
[2023-06-16 12:11] VITALS: BP 114/69
[2023-06-16 14:00] VITALS: BP 102/56; TEMP 98.2; O2SAT 96
[2023-06-16] MEDS: RAMELTEON 8 MG TAB (ROZEREM) PO PRN (20:11)
[2023-06-16 20:30] VITALS: BP 104/63; TEMP 96.8; O2SAT 96
[2023-06-17] MEDS: FIORICET TAB PO PRN (02:32)
[2023-06-17 05:30] VITALS: BP 106/65; TEMP 97.9; O2SAT 96
[2023-06-17] MEDS: PERCOCET 5MG/325MG TAB PO PRN ×2 (05:40→11:56)
[2023-06-17 06:34] LABS: BASO # 0.2 10^3/uL (0.0-0.2); BASO % 1.7 % (0.0-1.0); EOS # 0.8 10^3/uL (0.0-0.5); EOS % 7.4 % (0.0-3.0); HEMATOCRIT 31.7 % (42.0-52.0); HEMOGLOBIN 10.2 g/dl (13.5-17.5); LYMPH % 39.3 % (24.0-44.0); MEAN CORPUSCULAR HEMOGLOBIN 31.5 pg (27.0-33.0); MEAN CORPUSCULAR HGB CONC 32.2 g/dl (32.0-36.5); MEAN CORPUSCULAR VOLUME 97.8 fl (80.0-96.0); MONO # 1.3 10^3/uL (0.0-0.8); MONO % 13.2 % (2.0-8.0); NEUTROPHILS # 3.8 10^3/uL (1.5-8.5); NEUTROPHILS % 37.9 % (36.0-66.0); PLATELET COUNT, AUTOMATED 559 10^3/uL (150-450); RED BLOOD COUNT 3.24 10^6/uL (4.30-6.10); WHITE BLOOD COUNT 10.1 10^3/uL (4.0-10.0)
[2023-06-17 06:50] LABS: BLOOD UREA NITROGEN 14 MG/DL (9-23); CARBON DIOXIDE LEVEL 29 MMOL/L (20-31); CHLORIDE LEVEL 106 MMOL/L (98-107); CREATININE FOR GFR 0.55 MG/DL (0.70-1.30); GLOMERULAR FILTRATION RATE > 60.0 (>49); GLUCOSE, FASTING 90 MG/DL (74-106); MAGNESIUM LEVEL 1.7 MG/DL (1.8-2.4); POTASSIUM SERUM 4.2 MMOL/L (3.5-5.1); SODIUM LEVEL 142 MMOL/L (136-145)
[2023-06-17] MEDS: ADVAIR HFA 115/21MCG INHALER INH SCH (07:16)
[2023-06-17 07:20] VITALS: BP 105/58
[2023-06-17] MEDS: LACTULOSE 20GM/30ML SYRUP UDC PO SCH (08:12)
[2023-06-17] MEDS: TAMSULOSIN 0.4 MG CAP PO SCH (08:12)
[2023-06-17] MEDS: MIDODRINE 5 MG TAB PO SCH ×2 (08:12→11:56)
[2023-06-17] MEDS: SENNA 8.6 MG TAB (SENOKOT) PO SCH (08:12)
[2023-06-17] MEDS: PANTOPRAZOLE 40MG TAB (PROTONIX) PO SCH (08:12)
[2023-06-17] MEDS: LACTOBACILLUS ACIDOPHILUS CAP (BACID) PO SCH ×2 (08:12→11:56)
[2023-06-17] MEDS: APIXABAN 5 MG TAB (ELIQUIS) PO SCH (08:12)
[2023-06-17] MEDS: DOCUSATE SODIUM 100MG CAPSULE PO SCH (08:12)
[2023-06-17] MEDS: SERTRALINE HCL 50 MG TAB PO SCH (08:13)
[2023-06-17] MEDS: MOM 30ML SUSPENSION UDC PO SCH (08:13)
[2023-06-17] MEDS: BISACODYL 10MG SUPP PR SCH (08:13)
[2023-06-17] MEDS: ASPIRIN 81MG ENTERIC TABLET PO SCH (08:17)
[2023-06-17] MEDS ORDERED: BISA10SU PR (10:22)
[2023-06-17] MEDS ORDERED: SERT50TA29 PO (10:22)
[2023-06-17] MEDS ORDERED: FLOM0.4C39 PO (10:22)
[2023-06-17] MEDS ORDERED: ELIQ5TAB PO (10:22)
[2023-06-17] MEDS ORDERED: ASPI81TAEC PO (10:22)
[2023-06-17] MEDS ORDERED: LACT20EL PO (10:29)
[2023-06-17] MEDS ORDERED: PERCOCET PO (10:29)
[2023-06-17] MEDS ORDERED: MIDO5TA PO (10:29)
[2023-06-17] MEDS ORDERED: MOM30SS2 PO (10:29)
[2023-06-17 11:55] VITALS: BP 116/70
== END 2023-06-17 12:45 | disposition home or self-care (01) | DRG 221 ==
LOC: M ED 13:02 → M ED INP 23:51 → ENRESERV 05-04 01:25 → M MSPAV 05-04 02:04 → M PCU 05-11 22:07 → M MSPAV 05-16 15:40 → M ICU 05-27 13:58 → M PCU 05-29 20:50 → M MSPAV 06-01 18:18
PROVIDERS: ADMIT Internal Medicine; ATTEND Surgery
PROC: 02HV33Z Insertion of Infusion Device into Superior Vena Cava, Percutaneous Approach (ICD-10-PCS; 2023-05-07)
PROC: 0DN80ZZ Release Small Intestine, Open Approach (ICD-10-PCS; 2023-05-08)
PROC: 0DNV0ZZ Release Mesentery, Open Approach (ICD-10-PCS; 2023-05-08)
PROC: 0DB80ZZ Excision of Small Intestine, Open Approach (ICD-10-PCS; principal; 2023-05-08 09:15)
PROC: 0D980ZZ Drainage of Small Intestine, Open Approach (ICD-10-PCS; 2023-05-12)
PROC: 30233N1 Transfusion of Nonautologous Red Blood Cells into Peripheral Vein, Percutaneous Approach (ICD-10-PCS; 2023-05-16)
PROC: 0W9G3ZZ Drainage of Peritoneal Cavity, Percutaneous Approach (ICD-10-PCS; 2023-05-17)
PROC: 0QH734Z Insertion of Internal Fixation Device into Left Upper Femur, Percutaneous Approach (ICD-10-PCS; 2023-06-13)
DX: K56.609 Unspecified intestinal obstruction, unspecified as to partial versus complete obstruction (principal); E43 Unspecified severe protein-calorie malnutrition; E87.3 Alkalosis; K65.1 Peritoneal abscess; R18.8 Other ascites; S72.142A Displaced intertrochanteric fracture of left femur, initial encounter for closed fracture; I48.0 Paroxysmal atrial fibrillation; D47.3 Essential (hemorrhagic) thrombocythemia; D64.9 Anemia, unspecified; E87.6 Hypokalemia; J44.9 Chronic obstructive pulmonary disease, unspecified; K21.9 Gastro-esophageal reflux disease without esophagitis; Z68.1 Body mass index [BMI] 19.9 or less, adult; K91.89 Other postprocedural complications and disorders of digestive system; Z79.899 Other long term (current) drug therapy; Z79.82 Long term (current) use of aspirin; N20.0 Calculus of kidney; G43.909 Migraine, unspecified, not intractable, without status migrainosus; F12.90 Cannabis use, unspecified, uncomplicated; F17.200 Nicotine dependence, unspecified, uncomplicated; K64.8 Other hemorrhoids; K91.870 Postprocedural hematoma of a digestive system organ or structure following a digestive system procedure; W18.30XA Fall on same level, unspecified, initial encounter; Y92.239 Unspecified place in hospital as the place of occurrence of the external cause

== ENCOUNTER → 2023-07-30 | Outpatient (CLI) | payer BC ==
[~2023-07-30] MED LIST changes: +ANOR1AER INH; +ASPI81TAEC PO; +BISA10SU PR; +DOCU100C16 PO; +ELIQ5TAB PO; +FLOM0.4C39 PO; +LACT20EL PO; +MIDO5TA PO; +MOM30SS2 PO; +PERCOCET PO; +PULM90IN INH; +SERT50TA29 PO
== END ==
LOC: M SOG 07:59
PROVIDERS: ATTEND Orthopaedic Surgery
DX: S72.002A Fracture of unspecified part of neck of left femur, initial encounter for closed fracture (principal); Y93.9 Activity, unspecified; Y92.9 Unspecified place or not applicable

== ENCOUNTER → 2023-11-15 | Outpatient (CLI) | payer BC | LOC: M RAD 10:12 | PROVIDERS: ATTEND Student in an Organized Health Care Education/Training Program | DX: I95.9 Hypotension, unspecified (principal); R91.1 Solitary pulmonary nodule; J43.9 Emphysema, unspecified; N20.0 Calculus of kidney ==

== ENCOUNTER → 2024-01-21 | Outpatient (CLI) | payer BC | LOC: M PLAIMG 12:36 | PROVIDERS: ATTEND Pain Medicine Pain Medicine | DX: M54.12 Radiculopathy, cervical region (principal) ==